=== PATIENT | male | born 1945 | race Caucasian/White ===

== ENCOUNTER 2017-06-13 12:05 | Outpatient (CLI) | payer MEDICARE, BC ==
--- NOTE | 2017-06-13 12:52 | RAD ---
THREE VIEWS LUMBAR SPINE: Indication: Chronic back pain. Comparison: 11-30-16 FINDINGS: The disc degenerative and facet osteoarthritic changes in the lower lumbar spine at L4-5 and L5-6 is stable to the prior exam. No acute fracture or subluxation is evident. IMPRESSION: Stable spondylosis of the lumbar spine when compared to the prior dated 11-30-16. POS: [facility]
== END 2017-06-13 12:06 | disposition home or self-care (01) ==
LOC: SCSRAD 12:05
PROVIDERS: ATTEND Psychiatry & Neurology Neurology
DX: G20 Parkinson's disease (principal); M47.816 Spondylosis without myelopathy or radiculopathy, lumbar region
CPT/HCPCS: 72100

== ENCOUNTER 2017-09-12 14:05 | Emergency (ER) | payer MEDICARE, BC ==
[2017-09-12 14:49] LABS: #Basophils 0.1 thou/uL (0.0-0.2); #Eosinphils 0.1 thou/uL (0.0-0.7); #Lymphocytes 1.2 thou/uL (1.20-3.40); #Monocytes 0.6 thou/uL (0.11-0.59); %Basophils 0.7 % (0.0-1.0); %Eosinophils 1.6 % (0.0-10.0); %Lymphocytes 13.7 % (21.0-51.0); %Monocytes 6.1 % (0.0-10.0); %Neutrophils 77.9 % (42.0-75.0); Hemoglobin 15.4 g/dL (14.0-18.0); Mean Corpuscular HGB CONC 35.7 g/dL (32.0-36.0); Mean Corpuscular Hemoglobin 31.9 pg (27.0-31.0); Mean Corpuscular Volume 89.4 fl (80.0-94.0); Mean Platelet Volume 7.9 fL (7.4-10.4); Platelet Count 225 thou/uL (130-400); RBC Distribution Width 11.6 % (11.5-14.5); Red Blood Cell (RBC) Count 4.85 mill/uL (4.70-6.10); White Blood Cell (WBC) Count 8.9 thou/uL (4.8-10.8)
[2017-09-12 15:04] LABS: ALT (SGPT) 16 U/L (8-55); AST (SGOT) 17 U/L (5-34); Albumin 4.2 g/dL (3.4-4.8); Alkaline Phosphatase 98 U/L (40-150); Anion Gap 15 mmol/L (10-20); BUN (Urea Nitrogen) 27 mg/dL (8.4-25.7); Bilirubin, Total 0.9 mg/dL (0.2-1.2); CK (CPK) 72 U/L (30-200); Calc. Creatinine Clearance 0 mL/min (70-130); Calcium 9.9 mg/dL (7.8-10.44); Carbon Dioxide 22 mmol/L (23-31); Chloride 106 mmol/L (98-107); Estimated GFR-MDRD 34; Globulin 3.3 g/dL (2.4-3.5); Glucose 112 mg/dL (83-110); Lipase 12 U/L (8-78); Potassium 3.9 mmol/L (3.5-5.1); Protein, Total 7.5 g/dL (5.8-8.1); Sodium 139 mmol/L (136-145)
[2017-09-12 15:07] LABS: CKMB 2.3 ng/mL (0-6.6)
--- NOTE | 2017-09-12 15:23 | RAD ---
PORTABLE CHEST ONE VIEW: Date: 09-12-17 Time: 3:13 p.m. History: Weakness, coronary artery disease. There are seven coronary stents. FINDINGS: Comparison is made with study 11-11-14. The heart is enlarged. Changes of median sternotomy are again seen. Lungs are well expanded without f ocal areas of consolidation, pneumothorax, rhiannon pulmonary edema or pleural effusions. A right taqueria l head prosthesis is again seen. The calcific density in the right lung apex is redemonstrated. IMPRESSION: No acute process. POS: [facility]
[2017-09-12 15:32] LABS: Troponin I 0.524 ng/mL (< 0.028)
[2017-09-12] MEDS ORDERED: Enoxaparin Sodium 100 MG/ML SYRINGE ONE (15:42)
[2017-09-12 16:11] LABS: Bilirubin Small (Negative); Blood, Urine Negative (Negative); Clarity Slightly Cloudy (Clear); Glucose, Urine (Dipstick) Negative (Negative); Leukocyte Negative (Negative); Nitrite Negative (Negative); Protein, Urine (Dipstick) 30 mg/dL (Neg-Trace); Specific Gravity, Urine 1.024 (1.002-1.036); Urobilinogen 0.2 mg/dL (0.2-1.0); pH, Urine 5.5 (5.0-9.0)
[2017-09-12 16:19] LABS: Bacteria/HPF 1+ HPF (None Seen); RBC/HPF 0-3 HPF (0-3); Renal Epithelial 0-3 HPF (0-3); Squamous Epithelial 0-3 HPF (0-3)
[2017-09-12 16:20] LABS: Hyaline Casts/LPF 4-6 HYALINE CAST LPF (0-3 Hyaline); Other Casts/LPF 0-3 FINELY GRAN LPF (0-3 Hyaline)
[2017-09-12] MEDS ORDERED: Metoprolol Tartrate 5 MG/5 ML VIAL ONE (17:36)
== END 2017-09-12 18:14 | disposition short-term general hospital (02) ==
LOC: SCSER 14:05
DX: I21.4 Non-ST elevation (NSTEMI) myocardial infarction (principal); E11.9 Type 2 diabetes mellitus without complications; I10 Essential (primary) hypertension; E78.00 Pure hypercholesterolemia, unspecified; G47.30 Sleep apnea, unspecified; F32.9 Major depressive disorder, single episode, unspecified; Z79.899 Other long term (current) drug therapy
CPT/HCPCS: 36415; 71045; 80053; 81003; 81015; 82553; 83605; 83690; 84443; 84484; 85025; 87040; 87086; 93005; 96361; 96372; 96374; J1650

== ENCOUNTER 2017-12-07 08:26 | Outpatient (CLI) | payer MEDICARE, BC ==
--- NOTE | 2017-12-07 10:00 | MRI ---
MRI LUMBAR SPINE NONCONTRAST: HISTORY: Low back pain with radiculopathy. FINDINGS: Conus medullaris has a normal appearance. Vertebral body heights are maintained. Scattered hemangio mas and discogenic end plate changes are present throughout the bone marrow. Partial compression of the T11 vertebral body is partially visualized on the sagittal images with res idual edema . There is loss of height by approximately 30%. T12-L1, L1-2, L2-3: Mild osteophytosis. Central canal and neural foramen are patent. L3-4: Very mild posterior disk bulge. Osteophytosis of the facets with facet fluid. Thecal sac is patent. Mild to moderate bilateral foraminal stenoses. L4-5: Disk space narrowing. Discogenic end plate changes most pronounced at this level. Minimal bu lge. Osteophytosis. Thecal sac is patent. Mild right and moderate left foraminal stenoses. L5-S1: Osteophytosis of the facets. Moderate right and mild left foraminal stenoses. IMPRESSION: 1. Degenerative changes lumbar spine with mild to moderate foraminal stenoses as detailed above. 2. Partially visualized subacute mild to moderate compression T11 vertebral body involving the super ior end plate without significant retropulsion. POS: [facility]
== END 2017-12-07 08:27 | disposition home or self-care (01) ==
LOC: TBSIIMAG 08:26
PROVIDERS: ATTEND Neurological Surgery
DX: M51.26 Other intervertebral disc displacement, lumbar region (principal); M51.36 Other intervertebral disc degeneration, lumbar region; M47.896 Other spondylosis, lumbar region; M99.83 Other biomechanical lesions of lumbar region
CPT/HCPCS: 72148

== ENCOUNTER 2018-03-22 14:40 | Emergency (ER) | payer MEDICARE, BC ==
--- NOTE | 2018-03-22 16:22 | RAD ---
LEFT HUMERUS TWO VIEWS: HISTORY: A 72-year-old male with a history of left arm pain after falling yesterday. FINDINGS: There are numerous left rib deformities, some of which are old and several of which could be acute or subacute. There is evidence for a comminuted humeral head and neck fracture with foreshortening. N o overt dislocation. The mid and distal humerus appears intact. The elbow is poorly seen. IMPRESSION: Comminuted humeral head and neck fracture with foreshortening, without dislocation. Numerous healed left rib fractures, as well as at least one and possibly several acute or subacute left rib fractures . POS: [facility]
--- NOTE | 2018-03-22 16:24 | RAD ---
LEFT SHOULDER THREE VIEWS: HISTORY: A 72-year-old male with a history of left shoulder injury. FINDINGS: Displaced comminuted fractures of the humeral head and neck are noted with some foreshortening and ma lalignment. Marked AC joint separation with abnormal widening of the coracoclavicular space. IMPRESSION: Severe acromioclavicular separation with marked abnormal widening of the coracoclavicular space. Com minuted fractures involving the humeral head and neck with foreshortening but without overt dislocati on. Numerous healed left rib fractures with the appearance of at least one and possibly several acut e or subacute left rib fractures without pneumothorax or pleural effusion. POS: [facility]
--- NOTE | 2018-03-22 16:47 | CT ---
NONCONTRAST HEAD CT: 03/22/18 HISTORY: Pain. Injury. Fall. COMPARISON: 11/11/14. FINDINGS: No parenchymal hemorrhage. No extra-axial hematoma. No midline shift. Basilar cisterns are patent. Ag e appropriate atrophy. Cortical gates-white matter differentiation is preserved. Ventricles and sulci are patent and symmetric. There is ectasia and extensive atherosclerosis in the visualized basilar artery. Mild mucosal thickening of the left maxillary sinus. Mastoid air cells are adequately aerated. Calvar ium is intact. IMPRESSION: No intracranial posttraumatic sequela. POS: [facility]
== END 2018-03-22 16:36 | disposition home or self-care (01) ==
LOC: SCSER 14:40
DX: S22.32XA Fracture of one rib, left side, initial encounter for closed fracture (principal); S42.292A Other displaced fracture of upper end of left humerus, initial encounter for closed fracture; S43.102A Unspecified dislocation of left acromioclavicular joint, initial encounter; R42 Dizziness and giddiness; G20 Parkinson's disease; E11.9 Type 2 diabetes mellitus without complications; I25.10 Atherosclerotic heart disease of native coronary artery without angina pectoris; I10 Essential (primary) hypertension; F32.9 Major depressive disorder, single episode, unspecified; Z79.899 Other long term (current) drug therapy; Z79.82 Long term (current) use of aspirin; W17.89XA Other fall from one level to another, initial encounter
CPT/HCPCS: 70450

== ENCOUNTER 2018-05-13 07:59 | Outpatient (CLI) | payer MEDICARE, BC ==
--- NOTE | 2018-05-13 09:14 | RAD ---
CERVICAL SPINE RADIOGRAPH SERIES 5 VIEWS: INDICATION: Neck pain. FINDINGS: Incidental note of a calcific density at the right apex which may relate to granulomatous calcificati on. Neutral lateral view of the cervical spine reveals reversed cervical curvature, likely degenerative w ith a slight degree of retrolisthesis of C3 on 4 and C4 on 5. There is no obvious translational dee on evident with flexion and extension positioning. No compression fracture. Moderate multilevel deg enerative change is present. IMPRESSION: Moderate multilevel degenerative changes of the cervical spine. No significant translational motion. POS: [facility]
--- NOTE | 2018-05-13 10:26 | MRI ---
MRI CERVICAL SPINE WITHOUT CONTRAST: History: Chronic neck pain. Comparison: None. Technique: Multiplanar, multisequence MRI images were obtained of the cervical spine without contrast . FINDINGS: Generalized disc desiccation is seen. Vertebral bodies demonstrate normal height and alignment withou t fracture or subluxation. Visualized cord demonstrates normal signal throughout. The craniocervical junction is unremarkable. T he prevertebral and paraspinal soft tissues are unremarkable. C2-3: A small central protrusion is seen. No posterior facet arthrosis. No neural foraminal stenosis or canal stenosis. C3-4: A small disc osteophyte complex is seen. No posterior facet arthrosis. Mild central canal steno sis. Moderate bilateral neural foraminal stenosis, left greater than right. C4-5: A small disc osteophyte complex is seen. No posterior facet arthrosis. Mild central canal steno sis. Moderate bilateral neural foraminal stenosis, left greater than right. C5-6: A small disc osteophyte complex is seen. No posterior facet arthrosis. Mild central canal steno sis. Mild to moderate bilateral neural foraminal stenosis. C6-7: No significant posterior bulge or protrusion. No posterior facet arthrosis. No neural foramina or central canal stenosis. C7-T1: Unremarkable. IMPRESSION: Degenerative changes of the cervical spine as above. POS: [facility]
== END 2018-05-13 08:00 | disposition home or self-care (01) ==
LOC: SCSMRI 07:59
PROVIDERS: ATTEND Nurse Practitioner Family
DX: M54.2 Cervicalgia (principal); M47.812 Spondylosis without myelopathy or radiculopathy, cervical region
CPT/HCPCS: 72050; 72141

== ENCOUNTER 2018-06-02 18:43 | Emergency (ER) | payer MEDICARE, BC ==
--- NOTE | 2018-06-02 19:29 | RAD ---
FOUR VIEWS LEFT KNEE: Comparison: None. History: Fall in scientology with left knee pain. FINDINGS: Four views of the left knee shows a fracture of the lateral aspect of the patella with overlying soft tissue swelling. No dislocation is seen. No knee effusion is seen. There are mild tricompartmental d egenerative changes in the left knee. Clips are seen along the medial aspect of the knee. IMPRESSION: 1. Acute fracture of the patella. 2. Mild left knee osteoarthritis. POS: [facility]
[2018-06-02] MEDS ORDERED: Acetaminophen 500 MG TAB ONE (19:41)
[2018-06-02] MEDS ORDERED: Ketorolac Tromethamine 30 MG/ML VIAL ONE (20:58)
[2018-06-02] MEDS ORDERED: Adacel (T-DAP) 0.5 ML VIAL ONE (20:58)
[2018-06-02] MEDS ORDERED: cloNIDine 0.1 MG TAB ONE (21:36)
[2018-06-02] MEDS ORDERED: Triple Antibiotic Oint 1 GM Packet ONE (21:36)
== END 2018-06-02 22:47 | disposition home or self-care (01) ==
LOC: ERS 18:43
DX: S82.002A Unspecified fracture of left patella, initial encounter for closed fracture (principal); E11.9 Type 2 diabetes mellitus without complications; E78.00 Pure hypercholesterolemia, unspecified; G47.30 Sleep apnea, unspecified; I25.10 Atherosclerotic heart disease of native coronary artery without angina pectoris; E78.5 Hyperlipidemia, unspecified; I10 Essential (primary) hypertension; F32.9 Major depressive disorder, single episode, unspecified; Z79.899 Other long term (current) drug therapy; W18.09XA Striking against other object with subsequent fall, initial encounter
CPT/HCPCS: 90471; 90715; 96372; J1885

== ENCOUNTER 2018-06-08 11:56 | Emergency (ER) | payer MEDICARE, BC ==
[2018-06-08] MEDS ORDERED: cloNIDine 0.1 MG TAB ONE (18:42)
== END 2018-06-08 18:20 | disposition home or self-care (01) ==
LOC: ERS 11:56
DX: I10 Essential (primary) hypertension (principal); R29.6 Repeated falls; E78.5 Hyperlipidemia, unspecified; G47.30 Sleep apnea, unspecified; I25.10 Atherosclerotic heart disease of native coronary artery without angina pectoris; F32.9 Major depressive disorder, single episode, unspecified; Z79.899 Other long term (current) drug therapy
CPT/HCPCS: 94760

== ENCOUNTER 2018-07-26 16:55 | Inpatient (IN) | payer MEDICARE, BC ==
[2018-07-26] MEDS ORDERED: Acetaminophen 325 MG Suppository ONE (17:45)
[2018-07-26] MEDS ORDERED: cefTRIAXone\\ROCEPHIN 2 GM VIAL ONE (17:45)
[2018-07-26] MEDS ORDERED: Acetaminophen 650 MG Suppository ONE (17:45)
[2018-07-26] MEDS ORDERED: Sodium Chloride 0.9% 100 ML ONE (17:46)
[2018-07-26 17:49] LABS: Bilirubin Negative (Negative); Blood, Urine Moderate (Negative); Glucose, Urine (Dipstick) Negative (Negative); Leukocyte Small (Negative); Nitrite Positive (Negative); Protein, Urine (Dipstick) 30 mg/dL (Neg-Trace); Specific Gravity, Urine 1.025 (1.005-1.030); Urobilinogen 0.2 mg/dL (0.2-1.0); pH, Urine 5.5 (5.0-9.0)
[2018-07-26 17:50] LABS: Clarity Cloudy (Clear); Hemoglobin 14.3 g/dL (14.0-18.0); Mean Corpuscular HGB CONC 34.2 g/dL (32.0-36.0); Mean Corpuscular Hemoglobin 31.8 pg (27.0-31.0); Mean Corpuscular Volume 93.1 fL (78.0-98.0); Mean Platelet Volume 8.1 fL (7.4-10.4); Platelet Count 131 thou/uL (130-400); RBC Distribution Width 12.4 % (11.5-14.5); White Blood Cell (WBC) Count 20.8 thou/uL (4.8-10.8)
[2018-07-26 17:57] LABS: ALT (SGPT) Less than 6 U/L (8-55); AST (SGOT) 11 U/L (5-34); Albumin 3.9 g/dL (3.4-4.8); Alkaline Phosphatase 88 U/L (40-150); Anion Gap 15 mmol/L (10-20); BUN (Urea Nitrogen) 21 mg/dL (8.4-25.7); Bilirubin, Total 1.6 mg/dL (0.2-1.2); Calc. Creatinine Clearance 0 mL/min (70-130); Calcium 9.3 mg/dL (7.8-10.44); Carbon Dioxide 23 mmol/L (23-31); Chloride 100 mmol/L (98-107); Estimated GFR-MDRD 41; Globulin 3.2 g/dL (2.4-3.5); Glucose 231 mg/dL (83-110); Protein, Total 7.1 g/dL (5.8-8.1); Sodium 134 mmol/L (136-145)
[2018-07-26 18:02] LABS: Band 2 % (5-11); Lymphocytes 2 % (21-51); MDiff Complete? YES; Monocytes 6 % (0-10); Neutrophil 89 % (42-75); Platelet Morphology Comment Appears Adequate; RBC Morphology Normal
[2018-07-26 18:03] LABS: Bacteria/HPF 4+ HPF (None Seen); Squamous Epithelial None Seen HPF (0-3)
[2018-07-26] MEDS ORDERED: Vancomycin HCl 500 MG VIAL ONE (18:24)
--- NOTE | 2018-07-26 19:02 | RAD ---
CHEST ONE VIEW: History: Dyspnea. Comparison: 02-19-18 FINDINGS: Cardiac silhouette is magnified and is upper limits of normal in size. Pulmonary vasculature also upp er limits of normal. Patient is rotated leftward. Post-operative changes of the mediastinum. Calcifie d granulomata are consistent with healed granulomatous disease. No lobar consolidation or evidence of pneumothorax. IMPRESSION: Chronic type findings appear stable. POS: [facility]
--- NOTE | 2018-07-26 19:34 | CT ---
CT HEAD NONCONTRAST: 07/26/18 HISTORY: Altered mental status. COMPARISON: 03/22/18. FINDINGS: There is no evidence of acute intracranial hemorrhage or infarct. Ventricles appear normal in size, s hape and position. Diffuse cortical atrophy and chronic ischemic small disease are apparent. A subtle oval area of decreased density at the left posterior frontal region on axial image #23 is favored to represent volume averaging of a sulcus. Mucosal thickening is noted within the left maxillary sinus. Prominent calcification in the arterial structures. IMPRESSION: Chronic type findings are stable. No acute intracranial abnormalities are demonstrated. POS: [facility]
[2018-07-26 21:18] LABS: Lactic Acid 1.4 mmol/L (0.5-2.2)
--- NOTE | 2018-07-26 21:20 | CT ---
CT ABDOMEN AND PELVIS NONCONTRAST: 07/26/18 HISTORY: Flank pain. FINDINGS: Each renal collecting system, ureter, and urinary bladder are decompressed without stone evident. Lack of contrast limits evaluation for other abnormalities. Calcification throughout the arterial str uctures. Lung bases are clear. Oral contrast was administered. No evidence of bowel obstruction. Dege nerative changes of the lumbar spine. Old left lower rib fractures. IMPRESSION: 1. No CT evidence of urinary tract obstruction or calcification. 2. Atherosclerosis. POS: [facility]
[2018-07-26] MEDS ORDERED: Acetaminophen 325 MG TAB PO PRN (22:04)
[2018-07-26 22:34] VITALS: BMI 32.1
[2018-07-26] MEDS ORDERED: Albuterol Sulfate 2.5 mg/3 ml Neb NEB PRN (22:55)
[2018-07-26] MEDS ORDERED: Dextrose 5% in Water 1,000 ML IV PRN (22:56)
[2018-07-26] MEDS ORDERED: Dextrose 50% Abboject 50 ML SYRINGE SLOW IVP PRN (22:56)
[2018-07-26] MEDS ORDERED: HumaLOG 300 UNITS/3 ML VIAL SC PRN ×2 (22:56)
[2018-07-26] MEDS ORDERED: Ondansetron PF 4 MG/2 ML Vial IVP PRN (22:59)
[2018-07-26] MEDS ORDERED: Bisacodyl 5 MG TAB PO PRN (22:59)
[2018-07-26] MEDS ORDERED: Senokot S 8.6-50 MG TAB PO PRN (22:59)
[2018-07-26] MEDS ORDERED: Calcium Carbonate 500 MG ChewTAB PO PRN (22:59)
[2018-07-26] MEDS ORDERED: Amantadine HCl 100 mg Capsule PO SCH (23:15)
[2018-07-26] MEDS ORDERED: Pravastatin Sodium 40 MG TAB PO SCH (23:15)
[2018-07-26] MEDS ORDERED: Donepezil HCl 10 MG TAB PO SCH (23:15)
[2018-07-26] MEDS ORDERED: Carbidopa/Levodopa 25-100 mg Tablet PO SCH (23:15)
[2018-07-26] MEDS: Sodium Chloride 0.9% 1,000 ML IV SCH (23:41)
[2018-07-26] MEDS: hydrALAZINE 20 MG/ML VIAL SLOW IVP PRN (23:41)
--- NOTE | 2018-07-27 00:41 | HP ---
CHIEF COMPLAINT: Altered mental status. PRIMARY CARE PHYSICIAN: Lincoln Art MD HISTORY OF PRESENTING ILLNESS: Mr. Bright is a pleasant 72-year-old male with past medical history of hypertension, Parkinson disease, dyslipidemia, and sleep apnea as well as coronary artery disease, status post CABG, who presented to the ER in [place] with complaints of mental status changes. History is mainly obtained by the record review as the patient does not want to really wake up as it is around 1130 at night, and the is sound asleep in the room. Electronic medical records have been reviewed in detail. Mr. Bright was brought into the [place] ER by his who noticed that he has been having some confusion. She gave history of him having some sweats and feeling hot, like he had a fever, also noticed urinary frequency with small void every 15 minutes all night. He had a back injection for chronic pain about 3 weeks ago. He was acting very disoriented today. Upon presentation to the ER, his blood pressure was 158/85, temperature of 102.[address] and chest x-ray were unremarkable. He, however, was found to have a WBC count of 20,000 with 89% neutrophils. Lactic acid of 2.4. His urinalysis was positive for nitrite, leukocyte esterase, wbc's, and +4 bacteria. He underwent a CT scan of the abdomen and pelvis, which was negative for any acute hydronephrosis or stone. He was given vancomycin and Rocephin in the emergency room and is now being admitted for sepsis secondary to urinary tract infection. He is currently hemodynamically stable and his repeat lactic acid is 1.4. PAST MEDICAL HISTORY: 1. Parkinson disease. 2. History of coronary artery disease, status post CABG. 3. Diabetes mellitus type 2 with peripheral neuropathy. 4. Obstructive sleep apnea. 5. Depression. 6. BPH. 7. Dyslipidemia. 8. Hypertension. 9. Asthma. PAST SURGICAL HISTORY: 1. Cholecystectomy. 2. CABG. 3. Ankle surgery. 4. Shoulder surgery. 5. Oropharyngeal surgery for sleep apnea. ALLERGIES: ANTIHISTAMINES. SOCIAL HISTORY: He lives at home with his . According to the EMR, he is independent with his ADLs and IADLs. No history of drug, tobacco, or alcohol abuse. FAMILY HISTORY: Significant for mother with hypertension. Father and aunt with lung cancer. HOME MEDICATIONS: As confirmed by our RN as follows; 1. Tylenol p.r.n. 2. Albuterol p.r.n. 3. Imdur mononitrate 30 mg daily. 4. Donepezil 10 mg daily. 5. Carbidopa/levodopa 25/100 one tablet p.o. q.i.d. 6. Amantadine 100 mg p.o. b.i.d. 7. Toprol-XL 12.5 mg p.o. b.i.d. 8. Fluoxetine 1 tablet daily. 9. Plavix 1 tablet daily. 10. Amlodipine 5 mg daily. 11. Flomax 1 capsule daily. 12. Pravastatin 40 mg daily. REVIEW OF SYSTEMS: Not really obtainable as the patient is not wanting to discuss with me at this time and wants to be left alone to sleep. is sleeping and not available to discuss either. LABORATORY DATA: CBC shows WBCs 20,000 with neutrophils 89%, otherwise unremarkable. Serum chemistry shows sodium 134, creatinine 1.64, which is at his baseline with estimated GFR of 41, glucose 231. Lactic acid 2.4 with repeat lactic acid of 1.4. Urinalysis, +4 bacteria, multiple leukocyte esterase and nitrite. CT scan of the abdomen and pelvis per my review shows no hydronephrosis or calcification. Chest x-ray by my review has no evidence to suggest pulmonary infiltrate, effusion, or edema. CT scan of the brain is negative for any edema, hemorrhage, or mass. PHYSICAL EXAMINATION: VITAL SIGNS: Most recent temperature 97.6, pulse of 80, respirations 18, saturating 100% on room air, blood pressure 158/72 with a repeat blood pressure of 184/110. GENERAL: No acute distress. Lying comfortably in bed and trying to sleep, wakes up when woken up and follows simple commands. No acute distress. HEENT: Mucous membranes slightly dry. No oropharyngeal exudate or erythema. Head is normocephalic, atraumatic. Pupils are equal and reactive to light and accommodation. NECK: Supple without any lymphadenopathy, JVD, or bruit. CHEST: Clear to auscultation without any wheezing, rales, or rhonchi. CARDIOVASCULAR: Rate and rhythm are regular without any murmurs, rubs, or gallops. ABDOMEN: Soft, nontender, and nondistended. Positive bowel sounds. EXTREMITIES: Free of any cyanosis, clubbing, or edema. NEUROLOGICAL: Largely nonfocal, but limited due to patient's noncooperation. He is oriented to self and place. SKIN: Free of any rashes or bruises. Feels warm and dry to touch. PSYCHIATRIC: Slight agitation noticed. IMPRESSION AND PLAN: 1. Sepsis. This is secondary to urinary tract infection. He is hemodynamically stable. He will be started with IV antibiotics and IV fluids. Urine culture and blood cultures have been sent. We will repeat the labs in the morning. Lactic acid has since normalized. His last urine specimen is from January 2018, which showed Proteus mirabilis which was resistant to nitrofurantoin, otherwise pansensitive. Based on these cultures, we will start him on Rocephin. He has also received a dose of vancomycin in the ER. No other source of infection is evident at this time. 2. Parkinson disease. We will restart his amantadine and his Sinemet. 3. Coronary artery disease. Restart his metoprolol, isosorbide as well as Plavix. 4. Hypertension. Restart his amlodipine and isosorbide and add p.r.n. antihypertensives. 5. Dyslipidemia. Restart his pravastatin. 6. Code status could not be addressed due to patient's noncooperation at this time. We will need to address it in the morning. 7. Deep venous thrombosis and gastrointestinal prophylaxis. 8. Add walking program and if necessary OT and PT. 9. Chronic kidney disease stage 3, stable. DISPOSITION: Mr. Bright is currently being admitted to medical floor for sepsis secondary to urinary tract infection. Estimated length of stay at this time is at least 2 to 3 midnights. Further management will depend upon his clinical course. Job ID: [id number]
[2018-07-27] MEDS: hydrALAZINE 20 MG/ML VIAL SLOW IVP PRN (03:31)
[2018-07-27] MEDS: cloNIDine 0.1 MG TAB PO PRN (04:54)
[2018-07-27] MEDS ORDERED: Acetaminophen 650 MG Suppository PR PRN (05:18)
[2018-07-27] MEDS ORDERED: Nitroglycerin 0.4 MG TAB (25 Tab Bottle) SL PRN (05:18)
[2018-07-27] MEDS ORDERED: Aspirin 325 mg Enteric Coated Tablet PO SCH (05:30)
[2018-07-27 05:50] LABS: #Lymphocytes 0.7 thou/uL (1.20-3.40); #Neutrophils 16.3 thou/uL (1.40-6.50); %Basophils 0.1 % (0.0-1.0); %Eosinophils 0.3 % (0.0-10.0); %Lymphocytes 4.1 % (21.0-51.0); %Monocytes 5.4 % (0.0-10.0); %Neutrophils 90.1 % (42.0-75.0); Hemoglobin 12.6 g/dL (14.0-18.0); Mean Corpuscular HGB CONC 33.5 g/dL (32.0-36.0); Mean Corpuscular Hemoglobin 31.9 pg (27.0-31.0); Mean Corpuscular Volume 95.3 fL (78.0-98.0); Mean Platelet Volume 8.1 fL (7.4-10.4); Platelet Count 110 thou/uL (130-400); RBC Distribution Width 12.5 % (11.5-14.5); Red Blood Cell (RBC) Count 3.95 mill/uL (4.70-6.10)
[2018-07-27 06:07] LABS: Anion Gap 14 mmol/L (10-20); BUN (Urea Nitrogen) 17 mg/dL (8.4-25.7); Calc. Creatinine Clearance 79 mL/min (70-130); Calcium 8.6 mg/dL (7.8-10.44); Carbon Dioxide 20 mmol/L (23-31); Chloride 103 mmol/L (98-107); Estimated GFR-MDRD 56; Glucose 193 mg/dL (83-110); Potassium 3.7 mmol/L (3.5-5.1); Sodium 133 mmol/L (136-145)
[2018-07-27] MEDS ORDERED: Artificial Tears 18 DROP/0.9 ML EA EYE PRN (07:26)
[2018-07-27] MEDS ORDERED: Acetaminophen 500 MG TAB PO PRN (07:26)
[2018-07-27] MEDS ORDERED: Loperamide HCl 2 MG CAP PO PRN (07:26)
[2018-07-27] MEDS ORDERED: Zolpidem Tartrate 5 MG TAB PO PRN (07:26)
[2018-07-27] MEDS ORDERED: Eucerin (Mineral Oil/Petrolatum,White) 30 gm Jar TOP PRN (07:26)
[2018-07-27] MEDS ORDERED: Loratadine 10 MG TAB PO PRN (07:26)
[2018-07-27] MEDS ORDERED: Cepastat Lozenges 1 LOZ PO PRN (07:26)
[2018-07-27] MEDS ORDERED: Ondansetron ODT 4 MG TAB PO PRN (07:26)
[2018-07-27] MEDS ORDERED: Bisacodyl 10 MG SUPP PR PRN (07:26)
[2018-07-27] MEDS ORDERED: Diabetic Tussin 200 MG/10 ML UDCUP PO PRN (07:26)
[2018-07-27] MEDS ORDERED: Sodium Chloride 0.65% Nasal 44 ML BOT EA NARE PRN (07:26)
[2018-07-27] MEDS ORDERED: Labetalol HCl 100 MG/20 ML VIAL SLOW IVP PRN (07:28)
[2018-07-27] MEDS: Tamsulosin HCl 0.4 MG CAP PO SCH (09:40)
[2018-07-27] MEDS: Clopidogrel Bisulfate 75 MG TAB PO SCH (09:40)
[2018-07-27] MEDS: Amlodipine 5 MG TAB PO SCH (09:40)
[2018-07-27] MEDS: Saccharomyces boulardii 250 MG CAP PO SCH (09:40)
[2018-07-27] MEDS: FLUoxetine HCl 10 MG CAP PO SCH (09:40)
[2018-07-27] MEDS: Carbidopa/Levodopa 25-100 mg Tablet PO SCH ×4 (09:41→20:30)
[2018-07-27] MEDS: Amantadine HCl 100 mg Capsule PO SCH ×2 (09:41→20:30)
[2018-07-27] MEDS: Famotidine 20 MG TAB PO SCH ×2 (09:41→20:29)
[2018-07-27] MEDS: Enoxaparin Sodium 40 MG/0.4 ML SYRINGE SC SCH (09:44)
--- NOTE | 2018-07-27 10:55 | PDOC.PN ---
- Subjective Encounter Start Date: 07/27/18 Encounter Start Time: 08:40 -: old records requested/rev Patient seen and examined. No new complaints. No overnight events - Objective Resuscitation Status - Order Detail: 07/27/18 07:30 Resuscitation Status Routine Resuscitation Status: FULL: Full Resuscitation MAR Reviewed: Yes Vital Signs & Weight: Vital Signs (12 hours) Temp Pulse Resp BP BP BP Pulse Ox 07/27/18 10:07 95 07/27/18 09:40 75 119/77 07/27/18 08:38 98.6 F 75 20 119/77 95 07/27/18 06:28 98.1 F 88 132/76 07/27/18 04:54 183/77 H 07/27/18 04:06 98.6 F 103 H 20 192/76 H 94 L 07/27/18 03:31 100 195/87 H 07/27/18 00:59 100 160/81 H 07/26/18 23:57 98.5 F 90 20 184/110 H 97 07/26/18 23:41 90 184/110 H 07/26/18 22:57 100 Weight Weight 237 lb 4.8 oz I&O: 07/26/18 07/27/18 07/28/18 06:59 06:59 06:59 Intake Total 580 Output Total 150 Balance 430 Result Diagrams: 07/27/18 05:39 07/27/18 05:39 Additional Labs: Accuchecks 07/27/18 03:23 POC Glucose 164 H Radiology Reviewed by me: Yes (CT abdomen, chest xray reviewed) EKG Reviewed by me: Yes (NSR) Phys Exam - Physical Examination Constitutional: NAD HEENT: PERRLA, moist MMs, sclera anicteric Neck: no JVD, supple Respiratory: no wheezing, no rales, no rhonchi Cardiovascular: RRR, no significant murmur, no rub Gastrointestinal: soft, non-tender, no distention, positive bowel sounds Musculoskeletal: no edema, pulses present Neurological: non-focal, normal sensation parkinsonian tremor Lymphatic: no nodes Psychiatric: normal affect Skin: no rash, normal turgor Dx/Plan (1) Acute worsening of stage 3 chronic kidney disease Code(s): N18.3 - CHRONIC KIDNEY DISEASE, STAGE 3 (MODERATE) Status: Acute (2) Lactic acidosis Code(s): E87.2 - ACIDOSIS Status: Acute (3) Sepsis with acute organ dysfunction Code(s): A41.9 - SEPSIS, UNSPECIFIED ORGANISM; R65.20 - SEVERE SEPSIS WITHOUT SEPTIC SHOCK Status: Acute (4) Thrombocytopenia Code(s): D69.6 - THROMBOCYTOPENIA, UNSPECIFIED Status: Acute (5) UTI (urinary tract infection) Status: Acute (6) Anxiety and depression Code(s): F41.9 - ANXIETY DISORDER, UNSPECIFIED; F32.9 - MAJOR DEPRESSIVE DISORDER, SINGLE EPISODE, UNSPECIFIED Status: Chronic (7) Asthma Code(s): J45.909 - UNSPECIFIED ASTHMA, UNCOMPLICATED Status: Chronic (8) BPH (benign prostatic hyperplasia) Code(s): N40.0 - BENIGN PROSTATIC HYPERPLASIA WITHOUT LOWER URINRY TRACT SYMP Status: Chronic (9) CAD (coronary artery disease) Code(s): I25.10 - ATHSCL HEART DISEASE OF [place] CORONARY ARTERY W/O ANG PCTRS Status: Chronic (10) Diabetes type 2, controlled Code(s): E11.9 - TYPE 2 DIABETES MELLITUS WITHOUT COMPLICATIONS Status: Chronic (11) Dyslipidemia Code(s): E78.5 - HYPERLIPIDEMIA, UNSPECIFIED Status: Chronic (12) Hypertension Code(s): I10 - ESSENTIAL (PRIMARY) HYPERTENSION Status: Chronic (13) CHICO (obstructive sleep apnea) Code(s): G47.33 - OBSTRUCTIVE SLEEP APNEA (ADULT) (PEDIATRIC) Status: Chronic (14) Parkinson disease Code(s): G20 - PARKINSON'S DISEASE Status: Chronic - Plan cont current plan of care, plan discussed w/ family, continue antibiotics, PT/OT * continue IVF * continue rocephin * start PT * follow culture * discussed with * medication reviewed as below * symptomatic treatment * repeat labs tomorrow. Review of Systems - Review of Systems Constitutional: negative: fever, chills, sweats, weakness, malaise, other Eyes: negative: Pain, Vision Change, Conjunctivae Inflammation, Eyelid Inflammation, Redness, Other ENT: negative: Ear Pain, Ear Discharge, Nose Pain, Nose Discharge, Nose Congestion, Mouth Pain, Mouth Swelling, Throat Pain, Throat Swelling, Other Respiratory: negative: Cough, Dry, Shortness of Breath, Hemoptysis, SOB with Excertion, Pleuritic Pain, Sputum, Wheezing Cardiovascular: negative: chest pain, palpitations, orthopnea, paroxysmal nocturnal dyspnea, edema, light headedness, other Gastrointestinal: negative: Nausea, Vomiting, Abdominal Pain, Diarrhea, Constipation, Melena, Hematochezia, Other Genitourinary: Dysuria, Frequency. negative: Incontinence, Hematuria, Retention , Other Musculoskeletal: negative: Neck Pain, Shoulder Pain, Arm Pain, Back Pain, Hand Pain, Leg Pain, Foot Pain, Other - Medications/Allergies Allergies/Adverse Reactions: Allergies Allergy/AdvReac Type Severity Reaction Status Date / Time codeine Allergy Verified 07/26/18 22:13 antihistamines Allergy Severe Uncoded 10/19/15 12:47 Medications: Current Medications Acetaminophen (Tylenol) 650 mg PO Q6H PRN PRN Reason: Mild Pain (1-3) Albuterol Sulfate (Ventolin) 7.5 mg NEB Q6HR PRN PRN Reason: SOB &/or Wheezing Amantadine HCl (Symmetrel) 100 mg PO BID [facility] Last Admin: 07/27/18 09:41 Dose: 100 mg Amlodipine Besylate (Norvasc) 5 mg PO DAILY [facility] Last Admin: 07/27/18 09:40 Dose: 5 mg Artificial Tears (Tears Naturale) 2 drop EA EYE PRN PRN PRN Reason: Dry Eyes Aspirin (Aspirin) 325 mg PO DAILY [facility] Bisacodyl (Dulcolax) 10 mg PO DAILYPRN PRN PRN Reason: Constipation Bisacodyl (Dulcolax) 10 mg WI DAILYPRN PRN PRN Reason: Constipation Calcium Carbonate (Tums) 1,000 mg PO Q4H PRN PRN Reason: Heartburn or Indigestion Carbidopa/Levodopa (Sinemet 25-100) 1 tab PO QID [facility] Last Admin: 07/27/18 09:41 Dose: 1 tab Clonidine (Catapres) 0.1 mg PO Q4H PRN PRN Reason: SBP>160 Last Admin: 07/27/18 04:54 Dose: 0.1 mg Clopidogrel Bisulfate (Plavix) 75 mg PO DAILY [facility] Last Admin: 07/27/18 09:40 Dose: 75 mg Dextrose/Water (Dextrose 50%) 25 gm SLOW IVP PRN PRN PRN Reason: Hypoglycemia Donepezil HCl (Aricept) 10 mg PO HS [facility] Enoxaparin Sodium (Lovenox) 40 mg SC 0900 [facility] Last Admin: 07/27/18 09:44 Dose: Not Given Famotidine (Pepcid) 20 mg PO BID [facility] Last Admin: 07/27/18 09:41 Dose: 20 mg Fluoxetine HCl (Prozac) 10 mg PO DAILY [facility] Last Admin: 07/27/18 09:40 Dose: 10 mg Glucagon (Glucagon) 1 mg IM PRN PRN PRN Reason: Hypoglycemia Guaifenesin (Robitussin Sf) 200 mg PO Q4H PRN PRN Reason: Cough Hydralazine HCl (Apresoline) 10 mg SLOW IVP Q4H PRN PRN Reason: SBP>170 Last Admin: 07/27/18 03:31 Dose: 10 mg Dextrose/Water (D5w) 1,000 mls @ 0 mls/hr IV .Q0M PRN PRN Reason: Hypoglycemia Ceftriaxone Sodium 1 gm/ (Sodium Chloride) 100 mls @ 200 mls/hr IVPB 1800 [facility] Sodium Chloride (Normal Saline 0.9%) 1,000 mls @ 75 mls/hr IV .[id number] [facility] Last Admin: 07/26/18 23:41 Dose: 1,000 mls Insulin Human Lispro (Humalog) 0 units SC .MODERATE SLIDING SC PRN PRN Reason: Moderate Correctional Scale Insulin Human Lispro (Humalog) 0 units SC .BEDTIME SLIDING SC PRN PRN Reason: Bedtime Correctional Scale Isosorbide Mononitrate (Imdur Er) 30 mg PO DAILY [facility] Last Admin: 07/27/18 09:40 Dose: 30 mg Labetalol HCl (Normodyne) 10 mg SLOW IVP Q4H PRN PRN Reason: SBP Greater Than 170 Loperamide HCl (Imodium) 2 mg PO PRN PRN PRN Reason: Diarrhea/Loose Stools Loratadine (Claritin) 10 mg PO DAILYPRN PRN PRN Reason: Sinus Symptoms Metoprolol Succinate (Toprol Xl) 12.5 mg PO BID [facility] Last Admin: 07/27/18 09:40 Dose: 12.5 mg Mineral Oil/White Petrolatum (Eucerin Cream) 0 gm TOP BIDPRN PRN PRN Reason: Dry Skin Nitroglycerin (Nitrostat) 0.4 mg SL Q5MIN PRN PRN Reason: Chest Pain Ondansetron HCl (Zofran) 4 mg IVP Q6H PRN PRN Reason: Nausea/Vomiting Last Admin: 07/27/18 05:20 Dose: 4 mg Ondansetron HCl (Zofran Odt) 4 mg PO Q6H PRN PRN Reason: Nausea/Vomiting Pravastatin Sodium (Pravachol) 40 mg PO [facility] Saccharomyces Boulardii (Florastor) 250 mg PO DAILY [facility] Last Admin: 07/27/18 09:40 Dose: 250 mg Senna/Docusate Sodium (Senokot S) 2 tab PO BID PRN PRN Reason: Constipation Sodium Chloride ([place] Nasal [place] 0.65%) 0 ml EA NARE QIDPRN PRN PRN Reason: Nasal Congestion Tamsulosin HCl (Flomax) 0.4 mg PO DAILY [facility] Last Admin: 07/27/18 09:40 Dose: 0.4 mg Throat Lozenges (Cepastat Lozenges) 1 hugo PO Q2H PRN PRN Reason: Sore Throat Zolpidem Tartrate (Ambien) 5 mg PO HSPRN PRN PRN Reason: Insomnia
[2018-07-27] MEDS: Sodium Chloride 0.9% 1,000 ML IV SCH (12:35)
[2018-07-27] MEDS: cefTRIAXone\\ROCEPHIN 1 GM in Sodium Chloride 0.9% 100 ML IVPB SCH (17:31)
[2018-07-27] MEDS: Donepezil HCl 10 MG TAB PO SCH (20:28)
[2018-07-27] MEDS: Pravastatin Sodium 40 MG TAB PO SCH (20:29)
[2018-07-28] MEDS: Sodium Chloride 0.9% 1,000 ML IV SCH (02:35)
[2018-07-28] MEDS: Amlodipine 5 MG TAB PO SCH (09:25)
[2018-07-28] MEDS: Aspirin 325 MG TAB PO SCH (09:26)
[2018-07-28] MEDS: Tamsulosin HCl 0.4 MG CAP PO SCH (09:26)
[2018-07-28] MEDS: Clopidogrel Bisulfate 75 MG TAB PO SCH (09:26)
[2018-07-28] MEDS: FLUoxetine HCl 10 MG CAP PO SCH (09:26)
[2018-07-28] MEDS: Saccharomyces boulardii 250 MG CAP PO SCH (09:26)
[2018-07-28] MEDS: Famotidine 20 MG TAB PO SCH ×2 (09:26→20:51)
[2018-07-28] MEDS: Enoxaparin Sodium 40 MG/0.4 ML SYRINGE SC SCH (09:27)
[2018-07-28] MEDS: Amantadine HCl 100 mg Capsule PO SCH ×2 (09:27→20:51)
[2018-07-28] MEDS: Carbidopa/Levodopa 25-100 mg Tablet PO SCH ×4 (09:27→20:51)
[2018-07-28 10:34] LABS: Anion Gap 10 mmol/L (10-20); BUN (Urea Nitrogen) 15 mg/dL (8.4-25.7); Calc. Creatinine Clearance 78 mL/min (70-130); Carbon Dioxide 22 mmol/L (23-31); Chloride 105 mmol/L (98-107); Estimated GFR-MDRD 55; Glucose 150 mg/dL (83-110); Potassium 4.1 mmol/L (3.5-5.1); Sodium 133 mmol/L (136-145)
[2018-07-28 10:49] LABS: #Eosinphils 0.1 thou/uL (0.0-0.7); #Lymphocytes 0.4 thou/uL (1.20-3.40); #Monocytes 0.3 thou/uL (0.11-0.59); #Neutrophils 6.9 thou/uL (1.40-6.50); %Basophils 0.2 % (0.0-1.0); %Eosinophils 1.1 % (0.0-10.0); %Lymphocytes 4.7 % (21.0-51.0); %Monocytes 3.5 % (0.0-10.0); %Neutrophils 90.5 % (42.0-75.0); Hemoglobin 12.7 g/dL (14.0-18.0); Mean Corpuscular Hemoglobin 31.9 pg (27.0-31.0); Mean Corpuscular Volume 96.7 fL (78.0-98.0); Mean Platelet Volume 8.5 fL (7.4-10.4); Platelet Count 93 thou/uL (130-400); RBC Distribution Width 12.7 % (11.5-14.5); Red Blood Cell (RBC) Count 3.97 mill/uL (4.70-6.10); White Blood Cell (WBC) Count 7.6 thou/uL (4.8-10.8)
[2018-07-28 10:50] LABS: Critical Call w/ Read Back 4
--- NOTE | 2018-07-28 11:54 | PDOC.PN ---
- Subjective Encounter Start Date: 07/28/18 Encounter Start Time: 08:30 Patient seen and examined. pt is weak, still has dysuria, as per pt was confused last night, no fever - Objective Resuscitation Status - Order Detail: 07/27/18 07:30 Resuscitation Status Routine Resuscitation Status: FULL: Full Resuscitation MAR Reviewed: Yes Vital Signs & Weight: Vital Signs (12 hours) Temp Pulse Resp BP BP Pulse Ox 07/28/18 09:38 93 L 07/28/18 09:25 75 178/80 H 07/28/18 07:51 98.3 F 75 16 178/80 H 93 L 07/28/18 04:46 98.2 F 80 20 171/76 H 93 L 07/28/18 00:00 98.4 F 69 18 128/67 94 L Weight Weight 237 lb 4.8 oz I&O: 07/27/18 07/28/18 07/29/18 06:59 06:59 06:59 Intake Total 3325 Output Total 1250 Balance 2075 Result Diagrams: 07/28/18 09:48 07/28/18 09:48 Additional Labs: Accuchecks 07/27/18 07/27/18 16:03 11:33 POC Glucose 136 H 162 H Phys Exam - Physical Examination Constitutional: NAD HEENT: PERRLA, moist MMs, sclera anicteric Neck: no JVD, supple Respiratory: no wheezing, no rales, no rhonchi Cardiovascular: RRR, no significant murmur, no rub Gastrointestinal: soft, non-tender, no distention, positive bowel sounds obesity+ Musculoskeletal: no edema, pulses present Neurological: non-focal, normal sensation Lymphatic: no nodes Psychiatric: normal affect, A&O x 3 Skin: no rash, normal turgor Dx/Plan (1) Acute worsening of stage 3 chronic kidney disease Code(s): N18.3 - CHRONIC KIDNEY DISEASE, STAGE 3 (MODERATE) Status: Acute (2) Lactic acidosis Code(s): E87.2 - ACIDOSIS Status: Acute (3) Sepsis with acute organ dysfunction Code(s): A41.9 - SEPSIS, UNSPECIFIED ORGANISM; R65.20 - SEVERE SEPSIS WITHOUT SEPTIC SHOCK Status: Acute (4) Thrombocytopenia Code(s): D69.6 - THROMBOCYTOPENIA, UNSPECIFIED Status: Acute (5) UTI (urinary tract infection) Status: Acute (6) Anxiety and depression Code(s): F41.9 - ANXIETY DISORDER, UNSPECIFIED; F32.9 - MAJOR DEPRESSIVE DISORDER, SINGLE EPISODE, UNSPECIFIED Status: Chronic (7) Asthma Code(s): J45.909 - UNSPECIFIED ASTHMA, UNCOMPLICATED Status: Chronic (8) BPH (benign prostatic hyperplasia) Code(s): N40.0 - BENIGN PROSTATIC HYPERPLASIA WITHOUT LOWER URINRY TRACT SYMP Status: Chronic (9) CAD (coronary artery disease) Code(s): I25.10 - ATHSCL HEART DISEASE OF [place] CORONARY ARTERY W/O ANG PCTRS Status: Chronic (10) Diabetes type 2, controlled Code(s): E11.9 - TYPE 2 DIABETES MELLITUS WITHOUT COMPLICATIONS Status: Chronic (11) Dyslipidemia Code(s): E78.5 - HYPERLIPIDEMIA, UNSPECIFIED Status: Chronic (12) Hypertension Code(s): I10 - ESSENTIAL (PRIMARY) HYPERTENSION Status: Chronic (13) CHICO (obstructive sleep apnea) Code(s): G47.33 - OBSTRUCTIVE SLEEP APNEA (ADULT) (PEDIATRIC) Status: Chronic (14) Parkinson disease Code(s): G20 - PARKINSON'S DISEASE Status: Chronic - Plan cont current plan of care, plan discussed w/ family, continue antibiotics, PT/OT * platelet count dropping, so will dc lovenox * continue rocephin * labs morales pt has improvement but not clinically * medication reviewed as below * symptomatic treatment * continue PT * will check post void residual volume * discussed with . Review of Systems - Review of Systems Constitutional: weakness. negative: fever, chills, sweats, malaise, other ENT: negative: Ear Pain, Ear Discharge, Nose Pain, Nose Discharge, Nose Congestion, Mouth Pain, Mouth Swelling, Throat Pain, Throat Swelling, Other Respiratory: negative: Cough, Dry, Shortness of Breath, Hemoptysis, SOB with Excertion, Pleuritic Pain, Sputum, Wheezing Cardiovascular: negative: chest pain, palpitations, orthopnea, paroxysmal nocturnal dyspnea, edema, light headedness, other Gastrointestinal: negative: Nausea, Vomiting, Abdominal Pain, Diarrhea, Constipation, Melena, Hematochezia, Other Genitourinary: Dysuria. negative: Frequency, Incontinence, Hematuria, Retention , Other Musculoskeletal: negative: Neck Pain, Shoulder Pain, Arm Pain, Back Pain, Hand Pain, Leg Pain, Foot Pain, Other Neurological: Confusion. negative: Weakness, Numbness, Incoordination, Change in Speech, Seizures, Other - Medications/Allergies Allergies/Adverse Reactions: Allergies Allergy/AdvReac Type Severity Reaction Status Date / Time codeine Allergy Verified 07/26/18 22:13 antihistamines Allergy Severe Uncoded 10/19/15 12:47 Medications: Current Medications Acetaminophen (Tylenol) 650 mg PO Q6H PRN PRN Reason: Mild Pain (1-3) Last Admin: 07/27/18 21:06 Dose: 650 mg Albuterol Sulfate (Ventolin) 7.5 mg NEB Q6HR PRN PRN Reason: SOB &/or Wheezing Amantadine HCl (Symmetrel) 100 mg PO BID [facility] Last Admin: 07/28/18 09:27 Dose: 100 mg Amlodipine Besylate (Norvasc) 5 mg PO DAILY [facility] Last Admin: 07/28/18 09:25 Dose: 5 mg Artificial Tears (Tears Naturale) 2 drop EA EYE PRN PRN PRN Reason: Dry Eyes Aspirin (Aspirin) 325 mg PO DAILY [facility] Last Admin: 07/28/18 09:26 Dose: 325 mg Bisacodyl (Dulcolax) 10 mg PO DAILYPRN PRN PRN Reason: Constipation Bisacodyl (Dulcolax) 10 mg GA DAILYPRN PRN PRN Reason: Constipation Calcium Carbonate (Tums) 1,000 mg PO Q4H PRN PRN Reason: Heartburn or Indigestion Carbidopa/Levodopa (Sinemet 25-100) 1 tab PO QID [facility] Last Admin: 07/28/18 09:27 Dose: 1 tab Clonidine (Catapres) 0.1 mg PO Q4H PRN PRN Reason: SBP>160 Last Admin: 07/27/18 04:54 Dose: 0.1 mg Clopidogrel Bisulfate (Plavix) 75 mg PO DAILY [facility] Last Admin: 07/28/18 09:26 Dose: 75 mg Dextrose/Water (Dextrose 50%) 25 gm SLOW IVP PRN PRN PRN Reason: Hypoglycemia Donepezil HCl (Aricept) 10 mg PO HS [facility] Last Admin: 07/27/18 20:28 Dose: 10 mg Enoxaparin Sodium (Lovenox) 40 mg SC 0900 [facility] Last Admin: 07/28/18 09:27 Dose: Not Given Famotidine (Pepcid) 20 mg PO BID [facility] Last Admin: 07/28/18 09:26 Dose: 20 mg Fluoxetine HCl (Prozac) 10 mg PO DAILY [facility] Last Admin: 07/28/18 09:26 Dose: 10 mg Glucagon (Glucagon) 1 mg IM PRN PRN PRN Reason: Hypoglycemia Guaifenesin (Robitussin Sf) 200 mg PO Q4H PRN PRN Reason: Cough Hydralazine HCl (Apresoline) 10 mg SLOW IVP Q4H PRN PRN Reason: SBP>170 Last Admin: 07/27/18 03:31 Dose: 10 mg Dextrose/Water (D5w) 1,000 mls @ 0 mls/hr IV .Q0M PRN PRN Reason: Hypoglycemia Ceftriaxone Sodium 1 gm/ (Sodium Chloride) 100 mls @ 200 mls/hr IVPB 1800 [facility] Last Admin: 07/27/18 17:31 Dose: 100 mls Insulin Human Lispro (Humalog) 0 units SC .MODERATE SLIDING SC PRN PRN Reason: Moderate Correctional Scale Insulin Human Lispro (Humalog) 0 units SC .BEDTIME SLIDING SC PRN PRN Reason: Bedtime Correctional Scale Isosorbide Mononitrate (Imdur Er) 30 mg PO DAILY [facility] Last Admin: 07/28/18 09:26 Dose: 30 mg Labetalol HCl (Normodyne) 10 mg SLOW IVP Q4H PRN PRN Reason: SBP Greater Than 170 Loperamide HCl (Imodium) 2 mg PO PRN PRN PRN Reason: Diarrhea/Loose Stools Loratadine (Claritin) 10 mg PO DAILYPRN PRN PRN Reason: Sinus Symptoms Metoprolol Succinate (Toprol Xl) 12.5 mg PO BID [facility] Last Admin: 07/28/18 09:26 Dose: 12.5 mg Mineral Oil/White Petrolatum (Eucerin Cream) 0 gm TOP BIDPRN PRN PRN Reason: Dry Skin Nitroglycerin (Nitrostat) 0.4 mg SL Q5MIN PRN PRN Reason: Chest Pain Ondansetron HCl (Zofran) 4 mg IVP Q6H PRN PRN Reason: Nausea/Vomiting Last Admin: 07/27/18 05:20 Dose: 4 mg Ondansetron HCl (Zofran Odt) 4 mg PO Q6H PRN PRN Reason: Nausea/Vomiting Pravastatin Sodium (Pravachol) 40 mg PO HS [facility] Last Admin: 07/27/18 20:29 Dose: 40 mg Saccharomyces Boulardii (Florastor) 250 mg PO DAILY [facility] Last Admin: 07/28/18 09:26 Dose: 250 mg Senna/Docusate Sodium (Senokot S) 2 tab PO BID PRN PRN Reason: Constipation Sodium Chloride ([place] Nasal [place] 0.65%) 0 ml EA NARE QIDPRN PRN PRN Reason: Nasal Congestion Tamsulosin HCl (Flomax) 0.4 mg PO DAILY [facility] Last Admin: 07/28/18 09:26 Dose: 0.4 mg Throat Lozenges (Cepastat Lozenges) 1 hugo PO Q2H PRN PRN Reason: Sore Throat Zolpidem Tartrate (Ambien) 5 mg PO HSPRN PRN PRN Reason: Insomnia
[2018-07-28] MEDS: cefTRIAXone\\ROCEPHIN 1 GM in Sodium Chloride 0.9% 100 ML IVPB SCH (17:10)
[2018-07-28] MEDS: Pravastatin Sodium 40 MG TAB PO SCH (20:51)
[2018-07-28] MEDS: Donepezil HCl 10 MG TAB PO SCH (20:51)
[2018-07-29] MEDS: hydrALAZINE 20 MG/ML VIAL SLOW IVP PRN (04:08)
[2018-07-29] MEDS: cloNIDine 0.1 MG TAB PO PRN (05:26)
[2018-07-29] MEDS: Amantadine HCl 100 mg Capsule PO SCH (09:50)
[2018-07-29] MEDS: Aspirin 325 MG TAB PO SCH (09:50)
[2018-07-29] MEDS: Carbidopa/Levodopa 25-100 mg Tablet PO SCH ×2 (09:50→14:31)
[2018-07-29] MEDS: Clopidogrel Bisulfate 75 MG TAB PO SCH (09:50)
[2018-07-29] MEDS: Famotidine 20 MG TAB PO SCH (09:50)
[2018-07-29] MEDS: Amlodipine 5 MG TAB PO SCH (09:50)
[2018-07-29] MEDS: Tamsulosin HCl 0.4 MG CAP PO SCH (09:50)
[2018-07-29] MEDS: FLUoxetine HCl 10 MG CAP PO SCH (09:51)
[2018-07-29] MEDS: Saccharomyces boulardii 250 MG CAP PO SCH (09:51)
--- NOTE | 2018-07-29 11:47 | DIS ---
DATE OF ADMISSION: 07/26/2018 DATE OF DISCHARGE: 07/29/2018 PRIMARY CARE PHYSICIAN: Lincoln Art MD DISCHARGE DISPOSITION: Home with Home Health. PRIMARY DISCHARGE DIAGNOSES: Acute on chronic kidney failure, baseline chronic kidney disease stage 3, lactic acidosis, sepsis with acute organ dysfunction, thrombocytopenia, and urinary tract infection. SECONDARY DISCHARGE DIAGNOSES: Parkinson disease, obstructive sleep apnea, hypertension, dyslipidemia, diabetes type 2, coronary artery disease, benign enlargement of prostate, asthma, anxiety and depression, CKD stage 3. PRIMARY PROCEDURE/OPERATION: None. RADIOLOGICAL INVESTIGATION: CT brain negative for any acute process. Chest x-ray normal. CT abdomen and pelvis on admission showed no acute process. SIGNIFICANT LABORATORY DATA: WBC 7.6, hemoglobin 12.7, platelets 93. Sodium 133, potassium 4.1, BUN 15, creatinine 1.28, calcium 9.0. Cardiac enzyme negative. Urinalysis suggestive of UTI. Urine culture grew E coli. Blood culture negative. DISCHARGE MEDICATIONS: New medication; 1. Cipro 500 mg p.o. b.i.d. for 7 days. 2. Florastor 250 mg p.o. daily for 7 days. 3. Flomax 0.4 mg p.o. daily. 4. Pravastatin 40 mg p.o. at bedtime. 5. Toprol-XL 12.5 mg p.o. b.i.d. 6. Imdur 30 mg p.o. daily. 7. Prozac 10 mg p.o. daily. 8. Aricept 10 mg p.o. at bedtime. 9. Plavix 75 mg p.o. daily. 10. Sinemet 1 tablet q.i.d. 11. Amlodipine 5 mg p.o. daily. 12. Amantadine 100 mg p.o. b.i.d. 13. Tylenol 325 mg p.o. at bedtime. 14. Ventolin nebulization q.6 hourly p.r.n. CONTRAINDICATION: None. CODE STATUS: Full code. INPATIENT TAX PROFESSIONAL: None. ALLERGY: Codeine. DISCHARGE PLAN: Posthospital, the patient will follow up with primary care physician in one week. HOSPITAL COURSE: A 72-year-old male, who was admitted by Dr. Martine Snell. Please see her H and P for further detail. The patient was admitted for UTI symptoms. He was having dysuria, increased frequency. His urinalysis was also consistent with UTI. He was having altered mental status. He was meeting sepsis criteria. He was treated while in hospital with Rocephin. He was given IV fluid. His leukocytosis resolved. He did not have any further fever while in the hospital. He remained hemodynamically stable. His confusion resolved and up to his baseline level. The patient has physical deconditioning and we offered a group home home versus rehab placement to , but the patient and prefers to go home with resuming home health. At this point, based on culture result, we are changing antibiotic therapy to Cipro for another 7 days. While in hospital, we checked postvoid residual volume, which was unremarkable. The patient will continue all his previous medication as above. The patient is seen and examined at bedside today. All review of systems reviewed with him and negative. Plan of care discussed with the family member. The patient will be discharged home later on today after physical therapy. Job ID: [id number]
[2018-07-29 11:59] LABS: Anion Gap 14 mmol/L (10-20); BUN (Urea Nitrogen) 12 mg/dL (8.4-25.7); Calc. Creatinine Clearance 103 mL/min (70-130); Calcium 8.8 mg/dL (7.8-10.44); Carbon Dioxide 22 mmol/L (23-31); Chloride 95 mmol/L (98-107); Estimated GFR-MDRD 76; Glucose 165 mg/dL (83-110); Potassium 3.7 mmol/L (3.5-5.1); Sodium 127 mmol/L (136-145)
[2018-07-29 12:10] LABS: #Eosinphils 0.1 thou/uL (0.0-0.7); #Lymphocytes 0.5 thou/uL (1.20-3.40); #Monocytes 0.4 thou/uL (0.11-0.59); #Neutrophils 3.3 thou/uL (1.40-6.50); %Basophils 0.6 % (0.0-1.0); %Eosinophils 2.9 % (0.0-10.0); %Lymphocytes 10.3 % (21.0-51.0); %Monocytes 9.7 % (0.0-10.0); %Neutrophils 76.5 % (42.0-75.0); Mean Corpuscular HGB CONC 34.3 g/dL (32.0-36.0); Mean Corpuscular Hemoglobin 32.7 pg (27.0-31.0); Mean Corpuscular Volume 95.4 fL (78.0-98.0); Mean Platelet Volume 8.4 fL (7.4-10.4); Platelet Count 105 thou/uL (130-400); RBC Distribution Width 12.5 % (11.5-14.5); Red Blood Cell (RBC) Count 3.68 mill/uL (4.70-6.10); White Blood Cell (WBC) Count 4.4 thou/uL (4.8-10.8)
[2018-07-29 13:32] VITALS: BP 147/78; TEMP 99.6
--- NOTE | 2018-07-29 15:58 | PQF ---
DATE: 07-29-18 ATTN: DR. RICHARD JAMES Please exercise your independent, professional judgment in responding to the clarification form. Clinical indicators are provided on the bottom of this form for your review Please check appropriate box(s): [ x ] Encephalopathy: Type: [ x ] Acute [ ] Subacute [ ] Chronic Etiology: [ ] Hypertensive [ ] Metabolic [ ] Toxic [ x ] Septic [ ] Other (please specify) [ ] Transient Alteration of Awareness [ ] Other diagnosis [ ] Unable to determine In addition, please specify: Present on Admission (POA): [ x] Yes [ ] No [ ] Unable to determine For continuity of documentation, please document condition throughout progress notes and discharge summary. Thank You. CLINICAL INDICATORS - SIGNS / SYMPTOMS / LABS ER: DISORIENTED/POSS UTI, MENTAL STATUS CHANGES ER DX: ACUTE SEPSIS WITH UTI, PARKINSON'S H&P: BROUGHT TO THE ER BY HIS WHO NOTICED THAT HE HAS BEEN HAVING SOME CONFUSION, HE WAS ACTING VERY DISORIENTED TODAY, HE IS ORIENTED TO SELF AND PLACE, SLIGHT AGITATION NOTICED D/C SUMMARY DR. JAMES 07-29-18: HIS CONFUSION RESOLVED AND UP TO BASELINE LEVEL. RISK FACTORS: ER DX: ACUTE SEPSIS WITH UTI, PARKINSON'S D/C SUMMARY DR. JAMES 07-29-18: ACUTE ON CHRONIC KIDNEY FAILURE, LACTIC ACIDOSIS, SEPSIS WITH ACUTE ORGAN DYSFUNCTION, THROMBOCYTOPENIA, UTI, CKD 3, DM 2 TREATMENTS: ER: NS IVF 1000ML, VANCOMYCIN IV, CEFTRIAXONE IV, NS IVF 1000ML (This form is maintained as a part of the permanent medical record) 2014 [employer]. All Rights Reserved [email or web address] [email or web address] Office: [phone] [facility]
== END 2018-07-29 14:49 | disposition home health service (06) | DRG 871 ==
LOC: SCSER 16:55 → T4-A 22:05
PROVIDERS: ADMIT Internal Medicine; ATTEND Internal Medicine
DX: A41.51 Sepsis due to Escherichia coli [E. coli] (principal); G93.41 Metabolic encephalopathy; N39.0 Urinary tract infection, site not specified; N17.9 Acute kidney failure, unspecified; E87.2 Acidosis; R65.20 Severe sepsis without septic shock; G20 Parkinson's disease; I12.9 Hypertensive chronic kidney disease with stage 1 through stage 4 chronic kidney disease, or unspecified chronic kidney disease; E11.22 Type 2 diabetes mellitus with diabetic chronic kidney disease; N18.3 Chronic kidney disease, stage 3 (moderate); E78.5 Hyperlipidemia, unspecified; I25.10 Atherosclerotic heart disease of native coronary artery without angina pectoris; E11.42 Type 2 diabetes mellitus with diabetic polyneuropathy; G47.33 Obstructive sleep apnea (adult) (pediatric); F32.9 Major depressive disorder, single episode, unspecified; N40.0 Benign prostatic hyperplasia without lower urinary tract symptoms; J45.909 Unspecified asthma, uncomplicated; D69.6 Thrombocytopenia, unspecified; F41.9 Anxiety disorder, unspecified; Z88.5 Allergy status to narcotic agent; Z79.899 Other long term (current) drug therapy; Z95.1 Presence of aortocoronary bypass graft
CPT/HCPCS: 36415; 36416; 51701; 70450; 71045; 74176; 80048; 80053; 81003; 81015; 83605; 84484; 85025; 87040; 87077; 87086; 87186; 93005; 93010; 96365; 96366; 96367; J0360; J0696; J1650; J2405; J3370; J7050

== ENCOUNTER 2019-01-28 09:56 | Emergency (ER) | payer MEDICARE, BC ==
--- NOTE | 2019-01-28 11:03 | RAD ---
Exam:4 views right knee HISTORY: Pain. Trauma. Fall. COMPARISON: None FINDINGS: Mild degenerative change in the medial compartment. No fracture. No joint effusion. Vascula r calcifications are noted. There is moderate degenerative change in the patellofemoral compartment IMPRESSION: Bicompartmental degenerative change. No fracture.
--- NOTE | 2019-01-28 11:05 | RAD ---
Exam:Right ankle 3 views HISTORY: Pain. Trauma. COMPARISON: None Correlation: Right foot radiograph 10/15/2015 and 10/28/2015 FINDINGS: Chronic changes of the level of the distal tibia and fibula with calcifications of the synd esmosis. There is mild bony mineralization. No acute fracture. Spurring of the calcaneus at the plantar aponeurosis is noted. Resection of the fifth metatarsal is redemonstrated IMPRESSION: No fracture.
--- NOTE | 2019-01-28 11:06 | RAD ---
Exam:3 views right hand HISTORY: Fall. Pain. COMPARISON: None FINDINGS: Distal radius fracture with probable intra-articular extension. Ulnar styloid fracture. With regards to the osseous structures the right hand, no acute fractures. Joint spaces are preserved . IMPRESSION: Presumed distal radius and ulna fractures. Correlate clinically. Dedicated wrist radiogra ph is recommended.
--- NOTE | 2019-01-28 11:08 | RAD ---
Exam: 2 views of lumbar spine HISTORY: Fall. Pain. COMPARISON: [id number] FINDINGS: Previous vertebral plasty change in the distal thoracic spine 5 lumbar type bodies. Vertebral body height is maintained. No fracture. Stable moderate significant c hange at L4-L5. Posterior element hypertrophy at L4-L5 and L5-S1. IMPRESSION: No acute fracture. Chronic changes as described above
--- NOTE | 2019-01-28 11:39 | RAD ---
XR Wrist 3 Rt View STANDARD History: Fracture Comparison: Plain radiograph same day Findings: Chronic distal radius fracture with likely an acute superimposed component along the dorsal lateral lips as well as the ulnar styloid. Moderate wrist joint effusion. Extensive positive ulnar variance with volar subluxation. Impression: Likely a chronic distal radius fracture with acute superimposed fracture of the dorsal li p, intra-articular, as well as the ulnar styloid base.
== END 2019-01-28 12:00 | disposition home or self-care (01) ==
LOC: SCSER 09:56
DX: S39.012A Strain of muscle, fascia and tendon of lower back, initial encounter (principal); S86.911A Strain of unspecified muscle(s) and tendon(s) at lower leg level, right leg, initial encounter; G47.30 Sleep apnea, unspecified; I10 Essential (primary) hypertension; E78.00 Pure hypercholesterolemia, unspecified; I25.10 Atherosclerotic heart disease of native coronary artery without angina pectoris; F32.9 Major depressive disorder, single episode, unspecified; Z79.899 Other long term (current) drug therapy; W18.30XA Fall on same level, unspecified, initial encounter
CPT/HCPCS: 29125; 72100

== ENCOUNTER 2019-02-12 10:58 | Outpatient (CLI) | payer MEDICARE, BC ==
--- NOTE | 2019-02-12 11:53 | RAD ---
TWO VIEW CHEST: HISTORY: Dyspnea. FINDINGS: Evidence of old left rib fractures with pleural thickening in the left lateral chest is noted. Lungs appear clear of infiltrate. No evidence of vascular congestion or edema. Heart size within normal range. Postop sternotomy changes are noted. Compression deformity with vertebroplasty change at the T12 vertebra noted. IMPRESSION: No acute lung process. POS: H
== END 2019-02-12 10:59 | disposition home or self-care (01) ==
LOC: RAD 10:58
PROVIDERS: ATTEND Internal Medicine Critical Care Medicine
DX: R06.00 Dyspnea, unspecified (principal)
CPT/HCPCS: 71046

== ENCOUNTER 2019-06-02 11:35 | Inpatient (IN) | payer MEDICARE, BC ==
[2019-06-02 12:44] LABS: Bacteria/HPF 4+ HPF (None Seen); Bilirubin Negative (Negative); Blood, Urine 1+ (Negative); Clarity Extra Turbid (Clear); Glucose, Urine (Dipstick) Normal (Negative); Leukocyte 500 Leu/uL (Negative); Nitrite Negative (Negative); Protein, Urine (Dipstick) 30 mg/dL (Neg-Trace); Squamous Epithelial None Seen HPF (0-3); Urobilinogen Normal mg/dL (Less than 2); WBC/HPF Greater than 50 HPF (0-3)
--- NOTE | 2019-06-02 13:00 | RAD ---
Chest AP view INDICATION: Altered mental status COMPARISON: Prior chest radiograph dated February 12, 2019 FINDINGS: Lungs:Stable COPD change. There is a stable calcific granuloma in the right upper lobe. Cardiac silhouette:Stable cardiomegaly and post-CABG change Pulmonary vasculature:Normal Pleural spaces:No pleural effusion or pneumothorax is demonstrated. Upper abdomen:No abnormality seen. Osseous structures: There is stable proximal left humerus fracture that appears incompletely healed. Right total shoulder prosthesis is unchanged. Additional findings:None. IMPRESSION: Stable exam. No acute cardiopulmonary abnormality
[2019-06-02 13:02] LABS: Base Excess-Venous 1.7 mmol/L (-2.0 to 3.0); Bicarbonate (HCO3v) 25.8 mmol/L (22.0-28.0); CO2 Tension (PvCO2) 38.2 mmHg (40.0-50.0); Calcium, Ionized 1.06 mmol/L (See Comments:); Chloride 100 mmol/L (98-107); Hemoglobin - Calc 14.3 g/dL (14.0-18.0); Potassium 4.2 mmol/L (3.5-5.1); Sodium 138 mmol/L (138-145); vO2 Saturation-calc 93.6 % (60.0-85.0)
[2019-06-02 13:14] LABS: #Eosinphils 0.2 thou/uL (0.0-0.7); #Lymphocytes 0.9 thou/uL (1.20-3.40); #Monocytes 0.7 thou/uL (0.11-0.59); #Neutrophils 7.9 thou/uL (1.40-6.50); %Basophils 0.1 % (0.0-1.0); %Eosinophils 2.3 % (0.0-10.0); %Lymphocytes 9.4 % (21.0-51.0); %Monocytes 7.5 % (0.0-10.0); %Neutrophils 80.8 % (42.0-75.0); Hemoglobin 13.3 g/dL (14.0-18.0); Mean Corpuscular HGB CONC 33.9 g/dL (32.0-36.0); Mean Corpuscular Hemoglobin 31.9 pg (27.0-31.0); Mean Corpuscular Volume 94.1 fL (78.0-98.0); Mean Platelet Volume 8.4 fL (7.4-10.4); Platelet Count 165 thou/uL (130-400); RBC Distribution Width 12.4 % (11.5-14.5); Red Blood Cell (RBC) Count 4.19 mill/uL (4.70-6.10); White Blood Cell (WBC) Count 9.8 thou/uL (4.8-10.8)
--- NOTE | 2019-06-02 13:24 | CT ---
CT BRAIN WITHOUT CONTRAST: HISTORY: Altered mental status. COMPARISON: 07/26/2018 FINDINGS: Changes of cortical atrophy and chronic small vessel ischemic disease are again seen. The ventricular size is stable and the basilar cisterns are patent. A lacunar infarct in the brainstem is again seen No evidence of acute infarct, hemorrhage, midline shift or abnormal extraaxial fluid collections note d. The bony calvarium is intact. There is a mucosal lesion in the paranasal sinuses. IMPRESSION: No CT evidence of acute intracranial process. POS: [facility]
[2019-06-02] MEDS ORDERED: cefTRIAXone\\ROCEPHIN 2 GM VIAL ONE (13:38)
[2019-06-02] MEDS ORDERED: Sodium Chloride 0.9% 100 ML ONE (13:38)
[2019-06-02 13:43] LABS: ALT (SGPT) Less than 7 U/L (8-55); AST (SGOT) 14 U/L (5-34); Albumin 3.8 g/dL (3.4-4.8); Alkaline Phosphatase 86 U/L (40-110); Anion Gap 11 mmol/L (10-20); BUN (Urea Nitrogen) 18 mg/dL (8.4-25.7); Bilirubin, Total 1.2 mg/dL (0.2-1.2); Calc. Creatinine Clearance 0 mL/min (70-130); Calcium 9.4 mg/dL (7.8-10.44); Carbon Dioxide 25 mmol/L (23-31); Chloride 102 mmol/L (98-107); Estimated GFR-MDRD 39; Globulin 3.4 g/dL (2.4-3.5); Glucose 177 mg/dL (83-110); Potassium 4.3 mmol/L (3.5-5.1); Protein, Total 7.2 g/dL (5.8-8.1); Sodium 134 mmol/L (136-145)
[2019-06-02] MEDS ORDERED: Senokot S 8.6-50 MG TAB PO PRN (15:16)
[2019-06-02] MEDS: Sodium Chloride 0.9% 1,000 ML IV SCH (18:07)
[2019-06-02 18:37] VITALS: BMI 29.2
--- NOTE | 2019-06-03 01:47 | HP ---
PRIMARY CARE PHYSICIAN: Lincoln Art MD CHIEF COMPLAINT: Hallucinations, altered mental status, increased tremors. HISTORY OF PRESENT ILLNESS: Mr. Bright is a 73-year-old man with known Parkinson disease, sees Dr. Nettles, Neurology. reports that he has been having hallucinations on and off for the last several months, was given a new medication but he had some side effects to it, so they discontinued it. Reports that hallucinations restarted and reports that she called Dr. Nettles's office and tried to get the medication restarted. She took the patient to [place] thinking that Dr. Nettles would see the patient over at the [facility], but he evidently does not round over there. So when the hallucinations recurred again last night, she brought him to the emergency room at [place] with the request of seeing Dr. Nettles while the patient was here. While being evaluated in the emergency room, the patient's vital signs, within normal limits, temp 98.6. Lab work showed sodium of 134, creatinine at 1.72, which is greater than his baseline, glucose at 177. CT of the brain was negative for any acute findings. Lactic acid 1.6. White blood cell count 9.8, hemoglobin 13.3, hematocrit 39.4. Chest x-ray was negative for any acute findings. Urine, however, was extra turbid and leukocytes over 500, protein, ketones, blood, white blood cell count greater than 50, and 4+ bacteria. This has been sent out for culture. The patient admitted to stroke unit for further management. REVIEW OF SYSTEMS: The patient denies any pain. Speech is at times harder to understand, but reports this is at baseline. He also has some hand tremors which are also at baseline. reports hallucinations. All systems are reviewed and are negative unless mentioned in the HPI or above. PAST MEDICAL HISTORY: Pertinent for hypertension, high cholesterol, sleep apnea, coronary artery disease, Parkinson's. PAST SURGICAL HISTORY: Quadruple bypass, seven stents, cholecystectomy, right pinky toe amputation, orthopedic surgery, right shoulder, right ankle. PSYCH HISTORY: Some depression. SOCIAL HISTORY: Denies any drug use, alcohol use. No smoking history. ALLERGIES: ANTIHISTAMINES, HYDROCODONE. HOME MEDICATIONS: 1. Aspirin 81 mg p.o. daily. 2. Carbidopa/levodopa 25/100 q.i.d. 3. Aricept 10 mg p.o. daily. 4. Prozac 10 mg p.o. daily. 5. Metoprolol 12.5 mg p.o. b.i.d. 6. Singulair 10 mg p.o. daily. 7. Multivitamin one tablet p.o. daily. 8. Pravastatin 40 mg p.o. at bedtime. 9. Flomax 0.4 mg p.o. daily. PHYSICAL EXAMINATION: VITAL SIGNS: Temperature 98.9, pulse is 66, respirations are 18, pO2 saturations are 96% on room air, blood pressure 165/78. CONSTITUTIONAL: The patient appears nontoxic. He is alert and oriented to self and place. HEENT: Head is atraumatic and normocephalic. Eyes, pupils are equally round and reactive to light. ENT, mouth exam is normal. Mucous membranes are moist. NECK: Normal range of motion. Trachea is midline. RESPIRATORY/CHEST: Breath sounds are clear. Chest expansion is equal. CARDIOVASCULAR: Regular heart rate and rhythm. Heart sounds are normal. ABDOMEN: Nontender. Bowel sounds are heard. BACK: Normal range of motion. No CVA tenderness. EXTREMITIES: Upper extremities, normal range of motion. Sensation intact. Has a tremor. Radial pulses are normal. Lower extremities, normal range of motion. Motor strength is normal. Pedal pulses are normal. No edema is noted. NEURO: The patient is oriented to person and place. Speech is intermittently garbled, which reports is in baseline for the patient. SKIN: Warm, dry, normal in color for that is visualized. ASSESSMENT AND PLAN: 1. Altered mental status, potentially multifactorial. The patient does have a urinary tract infection. This has been cultured. Rocephin has been started in the emergency room. We will continue this daily. Gentle hydration, 75 mL per hour. We will obtain an echocardiogram and MRI of the brain in a.m. The patient sees Dr. Nettles as an outpatient. We have asked him to consult. The patient's asking for medication to be restarted that helped with his hallucinations. We have restarted his home medications. PT, OT, and speech have been ordered. 2. The patient with a history of hypertension. We will restart home medications. We will trend. 3. Acute on chronic kidney disease with urinary tract infection. We will gently hydrate, recheck value in the morning. 4. History of hyperlipidemia. We will restart home medications. 5. The patient is a DNR per patient's who is the surrogate decision maker. 6. Gastrointestinal and deep venous thrombosis prophylaxis have been started. 7. Hospital course is dependent on clinical findings. Job ID: [id number]
[2019-06-03 05:02] LABS: #Eosinphils 0.5 thou/uL (0.0-0.7); #Lymphocytes 1.1 thou/uL (1.20-3.40); #Monocytes 0.7 thou/uL (0.11-0.59); #Neutrophils 6.1 thou/uL (1.40-6.50); %Basophils 0.4 % (0.0-1.0); %Eosinophils 6.3 % (0.0-10.0); %Lymphocytes 13.5 % (21.0-51.0); %Monocytes 7.9 % (0.0-10.0); Hemoglobin 11.6 g/dL (14.0-18.0); Mean Corpuscular HGB CONC 34.5 g/dL (32.0-36.0); Mean Corpuscular Volume 92.6 fL (78.0-98.0); Mean Platelet Volume 7.8 fL (7.4-10.4); Platelet Count 158 thou/uL (130-400); RBC Distribution Width 12.2 % (11.5-14.5); Red Blood Cell (RBC) Count 3.63 mill/uL (4.70-6.10); White Blood Cell (WBC) Count 8.4 thou/uL (4.8-10.8)
[2019-06-03 05:26] LABS: ALT (SGPT) Less than 7 U/L (8-55); AST (SGOT) 10 U/L (5-34); Albumin 3.4 g/dL (3.4-4.8); Alkaline Phosphatase 74 U/L (40-110); Anion Gap 8 mmol/L (10-20); BUN (Urea Nitrogen) 16 mg/dL (8.4-25.7); Bilirubin, Total 0.8 mg/dL (0.2-1.2); Calc. Creatinine Clearance 58 mL/min (70-130); Calcium 8.9 mg/dL (7.8-10.44); Carbon Dioxide 26 mmol/L (23-31); Chloride 107 mmol/L (98-107); Estimated GFR-MDRD 44; Globulin 3.1 g/dL (2.4-3.5); Glucose 140 mg/dL (83-110); Potassium 4.1 mmol/L (3.5-5.1); Protein, Total 6.5 g/dL (5.8-8.1); Sodium 137 mmol/L (136-145)
[2019-06-03] MEDS: Sodium Chloride 0.9% 1,000 ML IV SCH ×2 (05:55→21:16)
[2019-06-03] MEDS: Famotidine 20 MG TAB PO SCH (08:54)
[2019-06-03] MEDS: Aspirin 81 mg Enteric Coated Tablet PO SCH (08:54)
[2019-06-03] MEDS: Donepezil HCl 10 MG TAB PO SCH (08:54)
[2019-06-03] MEDS: Carbidopa/Levodopa 25-100 mg Tablet PO SCH ×4 (08:54→21:17)
[2019-06-03] MEDS: Metoprolol Tartrate 25 MG TAB PO SCH ×2 (08:54→21:17)
[2019-06-03] MEDS: FLUoxetine HCl 10 MG CAP PO SCH (08:54)
[2019-06-03] MEDS: Montelukast Sodium 10 mg Tablet PO SCH (08:55)
[2019-06-03] MEDS: Tamsulosin HCl 0.4 MG CAP PO SCH (08:55)
[2019-06-03] MEDS ORDERED: Famotidine/PF 20 mg/2ml Vial SLOW IVP SCH (09:00)
[2019-06-03] MEDS ORDERED: Lorazepam 2 MG/ML VIAL SLOW IVP PRN (10:02)
--- NOTE | 2019-06-03 16:15 | PDOC.HOSPP ---
- Subjective Encounter Date: 06/03/19 Encounter Time: 16:15 Subjective: f/u for AMS, UTI with GNR on Rocephin. Remains agitated and tremors precluded completing MRI brain this am. - Objective Vital Signs & Weight: Vital Signs (12 hours) Temp Pulse Pulse Resp BP BP BP 06/03/19 15:50 98.5 F 74 16 140/80 06/03/19 14:00 67 191/86 H 165/91 H 06/03/19 12:00 98.2 F 62 18 158/88 H 06/03/19 07:58 98.8 F 74 20 178/106 H 06/03/19 04:52 164/102 H Pulse Ox 06/03/19 15:50 96 06/03/19 14:00 06/03/19 12:00 97 06/03/19 07:58 93 L 06/03/19 04:52 Weight Admit Weight 215 lb 4.8 oz Weight 215 lb 4.8 oz I&O: 06/02/19 06/03/19 06/04/19 06:59 06:59 06:59 Intake Total 100 1 Output Total 100 Balance 0 1 Result Diagrams: 06/03/19 04:40 06/03/19 04:40 Additional Labs: Microbiology 06/02/19 12:16 Nasal swab Influenza Types A,B Direct EIA - Final 06/02/19 12:50 Venous blood - Right Hand Blood Culture - Preliminary Specimen has been received and culture in progress. No Growth to date. 06/02/19 12:50 Venous blood - Right Arm Blood Culture - Preliminary Specimen has been received and culture in progress. No Growth to date. 06/02/19 12:06 Urine Straight Catheter Urine Culture - Preliminary Gram Negative [facility] Tests 06/02/19 06/02/19 06/02/19 12:50 12:50 12:50 Hgb 13.3 L Neutrophils % 80.8 H Creatinine 1.72 H Lactic Acid 1.6 06/03/19 04:40 Hgb Neutrophils % 72.0 Creatinine Lactic Acid Radiology Reviewed by me: Yes (CT brain - neg; PCXR - neg) EKG Reviewed by me: Yes (Tele - SR) Hospitalist ROS - Medication Medications: Active Medications Generic Name Dose Route Start Last Admin Trade Name Freq PRN Reason Stop Dose Admin Aspirin 81 mg 06/03/19 09:00 06/03/19 08:54 Ecotrin PO 81 mg DAILY MARY Administration Carbidopa/Levodopa 1 tab 06/03/19 09:00 06/03/19 12:35 Sinemet 25-100 PO 1 tab QID MARY Administration Donepezil HCl 10 mg 06/03/19 09:00 06/03/19 08:54 Aricept PO 10 mg DAILY MARY Administration Famotidine 20 mg 06/03/19 09:00 06/03/19 08:54 Pepcid PO 20 mg DAILY MARY Administration Fluoxetine HCl 10 mg 06/03/19 09:00 06/03/19 08:54 Prozac PO 10 mg DAILY MARY Administration Sodium Chloride 1,000 mls @ 75 mls/hr 06/02/19 15:30 06/03/19 05:55 Normal Saline 0.9% IV 1,000 mls .[id number] MARY Administration Lorazepam 1 mg 06/03/19 10:02 06/03/19 10:48 Ativan SLOW IVP 06/03/19 18:00 1 mg ONE PRN Administration 30 MIN BEFORE MRI Metoprolol Tartrate 12.5 mg 06/03/19 09:00 06/03/19 08:54 Lopressor PO 12.5 mg BID AMRY Administration Montelukast Sodium 10 mg 06/03/19 09:00 06/03/19 08:55 Singulair PO 10 mg DAILY MARY Administration Tamsulosin HCl 0.4 mg 06/03/19 09:00 06/03/19 08:55 Flomax PO 0.4 mg DAILY MARY Administration - Exam General Appearance: NAD, awake alert Eye: PERRL, anicteric sclera ENT: normocephalic atraumatic, no oropharyngeal lesions Neck: supple, symmetric, no JVD, no thyromegaly Heart: RRR, no gallops, no rubs, normal peripheral pulses Respiratory: CTAB, no wheezes, no rales, no ronchi, normal chest expansion Gastrointestinal: soft, non-tender, non-distended, normal bowel sounds Extremities: no cyanosis, no clubbing, no edema Skin: normal turgor, no lesions Musculoskeletal - other findings: tremors globally Psychiatric: oriented to person Psychiatric - other findings: agitated, mumbling, confused Hosp A/P (1) UTI (urinary tract infection) Status: Acute Plan: GNR on Ucx initially, continue Rocephin pending final identification/ sensitivities (2) Acute metabolic encephalopathy Code(s): G93.41 - METABOLIC ENCEPHALOPATHY Status: Acute Plan: Likely exacerbated with #1, continue supportive mgmt, CT brain negative, Neurology consult pending (3) Acute worsening of stage 3 chronic kidney disease Code(s): N18.3 - CHRONIC KIDNEY DISEASE, STAGE 3 (MODERATE) Status: Acute Plan: Improved with IVF hydration, avoid nephrotoxic meds and limit contrast exposure , serial creatinine (4) Parkinson disease Code(s): G20 - PARKINSON'S DISEASE Status: Chronic Plan: Advanced process, continue Sinemet 25/100 po QID, PT evaluation for functional assessment, fall risk precautions - Plan plan discussed w/ family, continue antibiotics, PT/OT, nephrology social worker, DVT proph w/SCDs Stable currently Continue Rocephin 1gm IV daily Continue low-volume IVF's Avoid nephrotoxic agents and limit contrast exposure Await final Ucx results Neurology consult pending PT evaluation for functional assessment AM lab: BMP, CBC Convert to inpt status
[2019-06-03] MEDS: cefTRIAXone\\ROCEPHIN 1 GM in Sodium Chloride 0.9% 100 ML IVPB SCH (16:58)
[2019-06-03] MEDS ORDERED: Pravastatin Sodium 40 MG TAB PO SCH (21:00)
[2019-06-03] MEDS: Atorvastatin Calcium 10 MG TAB PO SCH (21:17)
--- NOTE | 2019-06-04 00:04 | CON ---
DATE OF CONSULTATION: 06/03/2019 IMPRESSION: Mr. Bright has been battling Parkinson's related delirium for the last few weeks. He was initially treated with Nuplazid, which controlled his delirium quite well. Unfortunately, he is overly sedated and was not functioning well otherwise. After discontinuing the dose, he began having hallucinations once again, subsequently brought to the hospital to be evaluated. He was found to have evidence of urinary tract infection. His temperature maximum has been 100 degrees. His blood pressures have been a bit elevated. His lab work was only notable for some mild renal insufficiency. He is still quite delirious. He is a bit restless and has mumbling speech. Going to start Seroquel tonight. Once he is discharged, we are going to switch him back over to a lower dose of Nuplazid. Job ID: [id number]
[2019-06-04] MEDS: Montelukast Sodium 10 mg Tablet PO SCH ×2 (11:30→14:26)
[2019-06-04] MEDS: Sodium Chloride 0.9% 1,000 ML IV SCH ×4 (11:30→23:41)
[2019-06-04] MEDS: Donepezil HCl 10 MG TAB PO SCH ×2 (11:30→14:26)
[2019-06-04] MEDS: FLUoxetine HCl 10 MG CAP PO SCH ×2 (11:30→14:26)
[2019-06-04] MEDS: Aspirin 81 mg Enteric Coated Tablet PO SCH ×2 (11:30→14:25)
[2019-06-04] MEDS: Metoprolol Tartrate 25 MG TAB PO SCH ×3 (11:30→20:56)
[2019-06-04] MEDS: Famotidine 20 MG TAB PO SCH ×2 (11:30→14:26)
[2019-06-04] MEDS: Carbidopa/Levodopa 25-100 mg Tablet PO SCH ×5 (11:30→23:39)
[2019-06-04] MEDS: Tamsulosin HCl 0.4 MG CAP PO SCH ×2 (11:30→14:26)
--- NOTE | 2019-06-04 16:36 | PDOC.HOSPP ---
- Subjective Encounter Date: 06/04/19 Encounter Time: 16:30 Subjective: f/u for AMS, UTI with Klebsiella spp on Rocephin. reports that is better overall today. - Objective Vital Signs & Weight: Vital Signs (12 hours) Temp Pulse Pulse Pulse Resp BP BP 06/04/19 15:40 97.5 F L 61 16 06/04/19 14:48 68 67 175/80 H 141/77 H BP Pulse Ox 06/04/19 15:40 138/79 95 06/04/19 14:48 Weight Admit Weight 215 lb 4.8 oz Weight 215 lb 4.8 oz I&O: 06/03/19 06/04/19 06/05/19 06:59 06:59 06:59 Intake Total 100 301 240 Output Total 100 50 Balance 0 251 240 Result Diagrams: 06/03/19 04:40 06/03/19 04:40 Additional Labs: Microbiology 06/02/19 12:16 Nasal swab Influenza Types A,B Direct EIA - Final 06/02/19 12:06 Urine Straight Catheter Urine Culture - Final Klebsiella pneumoniae ssp pneu 06/02/19 12:50 Venous blood - Right Hand Blood Culture - Preliminary Specimen has been received and culture in progress. No Growth to date. 06/02/19 12:50 Venous blood - Right Hand Blood Culture - Preliminary NO GROWTH AT 48 HOURS 06/02/19 12:50 Venous blood - Right Arm Blood Culture - Preliminary Specimen has been received and culture in progress. No Growth to date. 06/02/19 12:50 Venous blood - Right Arm Blood Culture - Preliminary NO GROWTH AT 48 HOURS 06/02/19 12:06 Urine Straight Catheter Urine Culture - Preliminary Gram Negative [facility] Tests 06/02/19 06/02/19 06/02/19 12:50 12:50 12:50 Hgb 13.3 L Neutrophils % 80.8 H Creatinine 1.72 H Lactic Acid 1.6 06/03/19 04:40 Hgb Neutrophils % 72.0 Creatinine Lactic Acid Radiology Reviewed by me: Yes (Echo - EF 50%, technically limited) EKG Reviewed by me: Yes (Tele - SR) Hospitalist ROS - Medication Medications: Active Medications Generic Name Dose Route Start Last Admin Trade Name Freq PRN Reason Stop Dose Admin Aspirin 81 mg 06/03/19 09:00 06/04/19 14:25 Ecotrin PO Not Given DAILY MARY Atorvastatin Calcium 10 mg 06/03/19 21:00 06/03/19 21:17 Lipitor PO 10 mg HS [facility] Administration Carbidopa/Levodopa 1 tab 06/03/19 09:00 06/04/19 15:35 Sinemet 25-100 PO 1 tab QID MARY Administration Donepezil HCl 10 mg 06/03/19 09:00 06/04/19 14:26 Aricept PO Not Given DAILY [facility] Famotidine 20 mg 06/03/19 09:00 06/04/19 14:26 Pepcid PO Not Given DAILY MARY Fluoxetine HCl 10 mg 06/03/19 09:00 06/04/19 14:26 Prozac PO Not Given DAILY [facility] Sodium Chloride 1,000 mls @ 75 mls/hr 06/02/19 15:30 06/04/19 14:25 Normal Saline 0.9% IV Not Given .[id number] [facility] Ceftriaxone Sodium 1 gm/ 100 mls @ 200 mls/hr 06/03/19 16:00 06/03/19 16:58 Sodium Chloride IVPB 100 mls 1600 [facility] Administration Metoprolol Tartrate 12.5 mg 06/03/19 09:00 06/04/19 14:26 Lopressor PO Not Given BID [facility] Montelukast Sodium 10 mg 06/03/19 09:00 06/04/19 14:26 Singulair PO Not Given DAILY [facility] Quetiapine Fumarate 50 mg 06/03/19 21:00 06/03/19 21:17 Seroquel PO 50 mg HS [facility] Administration Tamsulosin HCl 0.4 mg 06/03/19 09:00 06/04/19 14:26 Flomax PO Not Given DAILY [facility] - Exam General Appearance: awake alert Eye: PERRL, anicteric sclera ENT: normocephalic atraumatic, no oropharyngeal lesions Neck: supple, symmetric, no JVD, no thyromegaly Heart: RRR, no murmur, no gallops, no rubs, normal peripheral pulses Respiratory: CTAB, no wheezes, no rales, no ronchi Gastrointestinal: soft, non-tender, non-distended, normal bowel sounds Extremities: no cyanosis, no clubbing Skin: normal turgor, no lesions Neurological: cranial nerve grossly intact Neurological - other findings: resting tremors Musculoskeletal: normal tone, generalized weakness Musculoskeletal - other findings: general resting tremors Psychiatric: oriented to person, flat affect Hosp A/P (1) UTI (urinary tract infection) Status: Acute Plan: Klebsiella spp, continue Rocephin 1gm IV daily, continue low-volume IVF's (2) Acute metabolic encephalopathy Code(s): G93.41 - METABOLIC ENCEPHALOPATHY Status: Acute Plan: Improved, continue treatment for underlying UTI (3) Acute worsening of stage 3 chronic kidney disease Code(s): N18.3 - CHRONIC KIDNEY DISEASE, STAGE 3 (MODERATE) Status: Acute Plan: Improved, continue IVF's, avoid nephrotoxic meds and limit contrast exposure (4) Parkinson disease Code(s): G20 - PARKINSON'S DISEASE Status: Chronic Plan: Continue Sinemet, Seroquel HS - Plan plan discussed w/ family, continue antibiotics, PT/OT, social services analyst, out of bed/ambulate, DVT proph w/SCDs Stable currently Continue Rocephin 1gm IV daily Continue low-volume IVF's Avoid nephrotoxic agents and limit contrast exposure Neurology consult appreciated PT evaluation for functional assessment AM lab: BMP
[2019-06-04] MEDS: cefTRIAXone\\ROCEPHIN 1 GM in Sodium Chloride 0.9% 100 ML IVPB SCH (16:49)
[2019-06-04 17:43] LABS: Anion Gap 8 mmol/L (10-20); BUN (Urea Nitrogen) 14 mg/dL (8.4-25.7); Calc. Creatinine Clearance 65 mL/min (70-130); Calcium 9.2 mg/dL (7.8-10.44); Carbon Dioxide 28 mmol/L (23-31); Chloride 106 mmol/L (98-107); Estimated GFR-MDRD 50; Glucose 102 mg/dL (83-110); Sodium 138 mmol/L (136-145)
[2019-06-04 19:27] LABS: Hemoglobin 11.5 g/dL (14.0-18.0); Red Blood Cell (RBC) Count 3.67 mill/uL (4.70-6.10); White Blood Cell (WBC) Count 6.1 thou/uL (4.8-10.8)
[2019-06-04 19:28] LABS: Eosinophils 12 % (0-10); Lymphocytes 23 % (21-51); MDiff Complete? YES; Mean Corpuscular HGB CONC 33.3 g/dL (32.0-36.0); Mean Corpuscular Hemoglobin 31.4 pg (27.0-31.0); Mean Corpuscular Volume 94.4 fL (78.0-98.0); Mean Platelet Volume 8.4 fL (7.4-10.4); Monocytes 8 % (0-10); Platelet Count 159 thou/uL (130-400); RBC Distribution Width 12.4 % (11.5-14.5)
[2019-06-04 19:29] LABS: Neutrophil 57 % (42-75)
[2019-06-04] MEDS: Atorvastatin Calcium 10 MG TAB PO SCH (20:57)
[2019-06-05] MEDS: Tamsulosin HCl 0.4 MG CAP PO SCH (09:26)
[2019-06-05] MEDS: Carbidopa/Levodopa 25-100 mg Tablet PO SCH ×4 (09:26→20:55)
[2019-06-05] MEDS: FLUoxetine HCl 10 MG CAP PO SCH (09:26)
[2019-06-05] MEDS: Famotidine 20 MG TAB PO SCH (09:26)
[2019-06-05] MEDS: Montelukast Sodium 10 mg Tablet PO SCH (09:26)
[2019-06-05] MEDS: Donepezil HCl 10 MG TAB PO SCH (09:26)
[2019-06-05] MEDS: Metoprolol Tartrate 25 MG TAB PO SCH ×2 (09:26→21:02)
[2019-06-05] MEDS: Aspirin 81 mg Enteric Coated Tablet PO SCH (09:26)
[2019-06-05] MEDS: Sodium Chloride 0.9% 1,000 ML IV SCH (12:45)
[2019-06-05] MEDS: Acetaminophen 325 MG TAB PO PRN (15:07)
[2019-06-05] MEDS: cefTRIAXone\\ROCEPHIN 1 GM in Sodium Chloride 0.9% 100 ML IVPB SCH (15:08)
--- NOTE | 2019-06-05 15:53 | PDOC.HOSPP ---
- Subjective Encounter Date: 06/05/19 Encounter Time: 15:45 Subjective: f/u for UTI with Klebsiella spp on Rocephin. Feels better overall with intermittent confusion. - Objective Vital Signs & Weight: Vital Signs (12 hours) Temp Pulse Pulse Resp BP BP Pulse Ox 06/05/19 14:28 61 152/90 H 06/05/19 12:05 97.6 F 59 L 20 146/76 H 97 06/05/19 07:40 98 06/05/19 07:30 97.4 F L 60 20 162/86 H 98 06/05/19 03:59 97.9 F 60 16 94 L Weight Admit Weight 215 lb 4.8 oz Weight 215 lb 4.8 oz I&O: 06/04/19 06/05/19 06/06/19 06:59 06:59 06:59 Intake Total 301 823 600 Output Total 50 Balance 251 823 600 Result Diagrams: 06/04/19 03:30 06/04/19 03:30 Additional Labs: Microbiology 06/02/19 12:16 Nasal swab Influenza Types A,B Direct EIA - Final 06/02/19 12:06 Urine Straight Catheter Urine Culture - Final Klebsiella pneumoniae ssp pneu 06/02/19 12:50 Venous blood - Right Hand Blood Culture - Preliminary Specimen has been received and culture in progress. No Growth to date. 06/02/19 12:50 Venous blood - Right Hand Blood Culture - Preliminary NO GROWTH AT 48 HOURS 06/02/19 12:50 Venous blood - Right Arm Blood Culture - Preliminary Specimen has been received and culture in progress. No Growth to date. 06/02/19 12:50 Venous blood - Right Arm Blood Culture - Preliminary NO GROWTH AT 48 HOURS 06/02/19 12:06 Urine Straight Catheter Urine Culture - Preliminary Gram Negative [facility] Tests 06/02/19 06/02/19 06/02/19 12:50 12:50 12:50 Hgb 13.3 L Neutrophils % 80.8 H Creatinine 1.72 H Lactic Acid 1.6 06/03/19 04:40 Hgb Neutrophils % 72.0 Creatinine Lactic Acid EKG Reviewed by me: Yes (Tele - SR) Hospitalist ROS - Medication Medications: Active Medications Generic Name Dose Route Start Last Admin Trade Name Freq PRN Reason Stop Dose Admin Acetaminophen 650 mg 06/02/19 15:16 06/05/19 15:07 Tylenol PO 650 mg Q4H PRN Administration Headache/Fever/Mild Pain (1-3) Aspirin 81 mg 06/03/19 09:00 06/05/19 09:26 Ecotrin PO 81 mg DAILY MARY Administration Atorvastatin Calcium 10 mg 06/03/19 21:00 06/04/19 20:57 Lipitor PO 10 mg HS MARY Administration Carbidopa/Levodopa 1 tab 06/03/19 09:00 06/05/19 12:45 Sinemet 25-100 PO 1 tab QID MARY Administration Donepezil HCl 10 mg 06/03/19 09:00 06/05/19 09:26 Aricept PO 10 mg DAILY MARY Administration Famotidine 20 mg 06/03/19 09:00 06/05/19 09:26 Pepcid PO 20 mg DAILY MARY Administration Fluoxetine HCl 10 mg 06/03/19 09:00 06/05/19 09:26 Prozac PO 10 mg DAILY MARY Administration Sodium Chloride 1,000 mls @ 75 mls/hr 06/02/19 15:30 06/05/19 12:45 Normal Saline 0.9% IV 1,000 mls .[id number] MARY Administration Ceftriaxone Sodium 1 gm/ 100 mls @ 200 mls/hr 06/03/19 16:00 06/05/19 15:08 Sodium Chloride IVPB 100 mls 1600 MARY Administration Metoprolol Tartrate 12.5 mg 06/03/19 09:00 06/05/19 09:26 Lopressor PO 12.5 mg BID MARY Administration Montelukast Sodium 10 mg 06/03/19 09:00 06/05/19 09:26 Singulair PO 10 mg DAILY MARY Administration Quetiapine Fumarate 50 mg 06/03/19 21:00 06/04/19 21:01 Seroquel PO 50 mg HS MARY Administration Tamsulosin HCl 0.4 mg 06/03/19 09:00 06/05/19 09:26 Flomax PO 0.4 mg DAILY MARY Administration - Exam General Appearance: NAD, awake alert Eye: PERRL, anicteric sclera ENT: normocephalic atraumatic, no oropharyngeal lesions Neck: supple, symmetric, no JVD, no thyromegaly Heart: RRR, no gallops, no rubs, normal peripheral pulses Respiratory: CTAB, no wheezes, no rales, no ronchi Gastrointestinal: soft, non-tender, non-distended, normal bowel sounds Extremities: no cyanosis, no clubbing, no edema Skin: normal turgor, no lesions Neurological: cranial nerve grossly intact, no new deficit Neurological - other findings: minimal tremor Musculoskeletal: normal tone, generalized weakness Psychiatric: oriented to person Hosp A/P (1) UTI (urinary tract infection) Status: Acute Plan: Continue Rocephin another 24h then convert to po abx (2) Acute metabolic encephalopathy Code(s): G93.41 - METABOLIC ENCEPHALOPATHY Status: Acute Plan: Improved, continue supportive mgmt and tx underlying UTI (3) Acute worsening of stage 3 chronic kidney disease Code(s): N18.3 - CHRONIC KIDNEY DISEASE, STAGE 3 (MODERATE) Status: Acute Plan: Improved, continue low-volume IVF's, avoid nephrotoxic meds and limit contrast exposure (4) Parkinson disease Code(s): G20 - PARKINSON'S DISEASE Status: Chronic Plan: Continue Sinemet - Plan plan discussed w/ family, continue antibiotics, PT/OT, public health social worker, speech therapy, out of bed/ambulate, DVT proph w/SCDs Stable currently Continue Rocephin 1gm IV daily another 24h then convert to po abx Continue low-volume IVF's Avoid nephrotoxic agents and limit contrast exposure Neurology consult appreciated PT evaluation for functional assessment AM lab: BMP CM for SNF/Rehab options
[2019-06-05] MEDS: Atorvastatin Calcium 10 MG TAB PO SCH (20:56)
[2019-06-06] MEDS: Sodium Chloride 0.9% 1,000 ML IV SCH (00:24)
[2019-06-06] MEDS: Metoprolol Tartrate 25 MG TAB PO SCH ×2 (09:29→22:24)
[2019-06-06] MEDS: Montelukast Sodium 10 mg Tablet PO SCH (09:30)
[2019-06-06] MEDS: Tamsulosin HCl 0.4 MG CAP PO SCH (09:30)
[2019-06-06] MEDS: Famotidine 20 MG TAB PO SCH (09:30)
[2019-06-06] MEDS: Carbidopa/Levodopa 25-100 mg Tablet PO SCH ×4 (09:31→22:24)
[2019-06-06] MEDS: Aspirin 81 mg Enteric Coated Tablet PO SCH (09:31)
[2019-06-06] MEDS: FLUoxetine HCl 10 MG CAP PO SCH (09:31)
[2019-06-06] MEDS: Donepezil HCl 10 MG TAB PO SCH (09:31)
--- NOTE | 2019-06-06 11:19 | PDOC.HOSPP ---
- Subjective Encounter Date: 06/06/19 Encounter Time: 11:00 Subjective: f/u for AMS, UTI with Klebsiella spp on Rocephin. More groggy, confused this am than previously. - Objective Vital Signs & Weight: Vital Signs (12 hours) Temp Pulse Resp BP Pulse Ox 06/06/19 07:44 98.1 F 67 18 94 L 06/06/19 07:20 148/90 H 94 L 06/06/19 03:34 97.7 F 60 18 156/84 H 98 06/05/19 23:43 97.4 F L 58 L 18 150/82 H 97 Weight Admit Weight 215 lb 4.8 oz Weight 215 lb 4.8 oz I&O: 06/05/19 06/06/19 06/07/19 06:59 06:59 06:59 Intake Total 823 2150 Balance 823 2150 Result Diagrams: 06/04/19 03:30 06/04/19 03:30 Additional Labs: Microbiology 06/02/19 12:16 Nasal swab Influenza Types A,B Direct EIA - Final 06/02/19 12:06 Urine Straight Catheter Urine Culture - Final Klebsiella pneumoniae ssp pneu 06/02/19 12:50 Venous blood - Right Hand Blood Culture - Preliminary Specimen has been received and culture in progress. No Growth to date. 06/02/19 12:50 Venous blood - Right Hand Blood Culture - Preliminary NO GROWTH AT 48 HOURS 06/02/19 12:50 Venous blood - Right Arm Blood Culture - Preliminary Specimen has been received and culture in progress. No Growth to date. 06/02/19 12:50 Venous blood - Right Arm Blood Culture - Preliminary NO GROWTH AT 48 HOURS 06/02/19 12:06 Urine Straight Catheter Urine Culture - Preliminary Gram Negative [facility] Tests 06/02/19 06/02/19 06/02/19 12:50 12:50 12:50 Hgb 13.3 L Neutrophils % 80.8 H Creatinine 1.72 H Lactic Acid 1.6 06/03/19 04:40 Hgb Neutrophils % 72.0 Creatinine Lactic Acid EKG Reviewed by me: Yes (Tele - SR) Hospitalist ROS - Medication Medications: Active Medications Generic Name Dose Route Start Last Admin Trade Name Freq PRN Reason Stop Dose Admin Acetaminophen 650 mg 06/02/19 15:16 06/05/19 15:07 Tylenol PO 650 mg Q4H PRN Administration Headache/Fever/Mild Pain (1-3) Aspirin 81 mg 06/03/19 09:00 06/06/19 09:31 Ecotrin PO 81 mg DAILY MARY Administration Atorvastatin Calcium 10 mg 06/03/19 21:00 06/05/19 20:56 Lipitor PO 10 mg HS MARY Administration Carbidopa/Levodopa 1 tab 06/03/19 09:00 06/06/19 09:31 Sinemet 25-100 PO 1 tab QID MARY Administration Donepezil HCl 10 mg 06/03/19 09:00 06/06/19 09:31 Aricept PO 10 mg DAILY MARY Administration Famotidine 20 mg 06/03/19 09:00 06/06/19 09:30 Pepcid PO 20 mg DAILY MARY Administration Fluoxetine HCl 10 mg 06/03/19 09:00 06/06/19 09:31 Prozac PO 10 mg DAILY MARY Administration Metoprolol Tartrate 12.5 mg 06/03/19 09:00 06/06/19 09:29 Lopressor PO 12.5 mg BID AMRY Administration Montelukast Sodium 10 mg 06/03/19 09:00 06/06/19 09:30 Singulair PO 10 mg DAILY MARY Administration Quetiapine Fumarate 50 mg 06/03/19 21:00 06/05/19 20:56 Seroquel PO 50 mg HS MARY Administration Tamsulosin HCl 0.4 mg 06/03/19 09:00 06/06/19 09:30 Flomax PO 0.4 mg DAILY MARY Administration - Exam General - other findings: confused, lethargic, opens eyes to name Eye: PERRL, anicteric sclera ENT: normocephalic atraumatic, no oropharyngeal lesions Neck: supple, symmetric, no JVD, no thyromegaly Heart: RRR, no murmur, no gallops, no rubs, normal peripheral pulses Respiratory: CTAB, no wheezes, no rales, no ronchi Gastrointestinal: soft, non-tender, non-distended, normal bowel sounds, no palpable masses Extremities: no cyanosis, no clubbing, no edema Skin: normal turgor, no lesions Neurological: no new deficit Neurological - other findings: tremors noted Musculoskeletal: normal tone, generalized weakness Psychiatric: oriented to person Hosp A/P (1) UTI (urinary tract infection) Status: Acute Plan: D/C Rocephin, start Levaquin po today (2) Acute metabolic encephalopathy Code(s): G93.41 - METABOLIC ENCEPHALOPATHY Status: Acute Plan: Variable encephalopathy, likely multifactorial, re-orientation techniques (3) Acute worsening of stage 3 chronic kidney disease Code(s): N18.3 - CHRONIC KIDNEY DISEASE, STAGE 3 (MODERATE) Status: Acute Plan: Improved, continue monitoring, avoid nephrotoxic meds (4) Parkinson disease Code(s): G20 - PARKINSON'S DISEASE Status: Chronic Plan: Advanced, continue Sinemet, Nuplazid pending - Plan plan discussed w/ family, continue antibiotics, PT/OT, psychologist social, speech therapy, out of bed/ambulate, DVT proph w/SCDs Stable currently D/c Rocephin, start Levaquin 750mg po daily Saline lock IVF's Avoid nephrotoxic agents and limit contrast exposure Neurology consult appreciated PT evaluation for functional assessment CM for SNF/Rehab options
--- NOTE | 2019-06-06 15:02 | PQF ---
CLINICAL DOCUMENTATION IMPROVEMENT CLARIFICATION FORM: ICD-10 Updated PLEASE DO AN ADDENDUM TO THE PROGRESS NOTE WITH ANY DOCUMENTATION UPDATES OR ADDITIONS AND CARRY THROUGH TO DC SUMMARY. THANK YOU. DATE: 06/06/2019 ATTN: Dr. Panchal Please exercise your independent, professional judgment in responding to the clarification form. Clinical indicators are provided on the bottom of this form for your review Please check appropriate box(s): [ ] Acute Renal Failure (ARF) / Acute Kidney Injury (REBECCA) [ x ] Acute on Chronic Renal Failure please specify Stage of CKD _3___(see below) [ ] CKD without ARF/REBECCA please specify Stage of CKD [ ] Other diagnosis [ ] Unable to determine In addition, please specify: Present on Admission (POA): [ x ] Yes [ ] No [ ] Unable to determine For continuity of documentation, please document condition throughout progress notes and discharge summary. Thank You. CLINICAL INDICATORS - SIGNS / SYMPTOMS / LABS / RESULTS AND LOCATION IN MR H&P 06/02: Lab work showed creatinine at 1.72, which is greater than his baseline Acute on chronic kidney disease with urinary tract infection. 06/02 06/03 06/04 LABS Creatinine 1.72 1.55 1.38 Estimated GFR 39 44 50 PN 06/06: Acute worsening of stage 3 chronic kidney disease. Improved, continue monitoring, avoid nephrotoxic meds RISKS: H&P 06/02: PMH: hypertension, CAD, Parkinson's ASSESSMENT AND PLAN: Acute on chronic kidney disease with urinary tract infection. TREATMENT: Order 06/02-06/06: Normal Saline IV 75 mls/hr Order for CMP 06/02, 06/03 BMP 06/04 National [employer] Guidelines for CKD Staging Stage I Kidney damage with normal or increased GFR GFR > 90 Stage II Kidney damage with mildly decreased GFR GFR 60-89 Stage III Kidney damage with moderately decreased GFR GFR 30-59 Stage IV Kidney damage with severely decreased GFR GFR 16-29 Stage V Kidney failure GFR<15 ESRDEnd Stage Renal Disease On dialysis Acute Renal Failure/Acute Kidney Failure defined as: Increases in SCr by (>) 0.3 mg/dl within 48 hours OR- Increases in SCr by (>) 1.5 times baseline, known or presumed to have occurred within the prior 7 days OR- Urine volume < 0.5 ml/kg/hour for 6 hours (KDIGO supplement 2012 for RIFLE/JONATAN criteria) Thank you, Marcie (This form is maintained as a part of the permanent medical record) 2014 [employer] All Rights Reserved Marcie Webster RN, [email or web address] [email or web address] Office: [phone] [facility]ITAL[facility]
[2019-06-06] MEDS: Atorvastatin Calcium 10 MG TAB PO SCH (22:22)
[2019-06-07] MEDS: Montelukast Sodium 10 mg Tablet PO SCH (09:12)
[2019-06-07] MEDS: Aspirin 81 mg Enteric Coated Tablet PO SCH (09:12)
[2019-06-07] MEDS: Tamsulosin HCl 0.4 MG CAP PO SCH (09:12)
[2019-06-07] MEDS: Metoprolol Tartrate 25 MG TAB PO SCH ×2 (09:12→21:01)
[2019-06-07] MEDS: Famotidine 20 MG TAB PO SCH (09:12)
[2019-06-07] MEDS: FLUoxetine HCl 10 MG CAP PO SCH (09:12)
[2019-06-07] MEDS: Donepezil HCl 10 MG TAB PO SCH (09:12)
[2019-06-07] MEDS: Carbidopa/Levodopa 25-100 mg Tablet PO SCH ×4 (09:12→21:01)
--- NOTE | 2019-06-07 12:22 | PDOC.HOSPP ---
- Subjective Encounter Date: 06/07/19 Encounter Time: 10:00 Subjective: no sob or pain not fully oriented but responds to verbal stimuli at bedside - Objective Vital Signs & Weight: Vital Signs (12 hours) Temp Pulse Resp BP BP Pulse Ox 06/07/19 11:46 98.9 F 72 20 98 06/07/19 07:35 97 06/07/19 07:32 166/92 H 06/07/19 07:18 98 F 76 20 97 06/07/19 03:00 98.2 F 65 18 150/82 H Weight Admit Weight 215 lb 4.8 oz Weight 215 lb 4.8 oz I&O: 06/06/19 06/07/19 06/08/19 06:59 06:59 06:59 Intake Total 2150 Balance 2150 Result Diagrams: 06/04/19 03:30 06/04/19 03:30 Hospitalist ROS - Medication Medications: Active Medications Generic Name Dose Route Start Last Admin Trade Name Freq PRN Reason Stop Dose Admin Acetaminophen 650 mg 06/02/19 15:16 06/05/19 15:07 Tylenol PO 650 mg Q4H PRN Administration Headache/Fever/Mild Pain (1-3) Aspirin 81 mg 06/03/19 09:00 06/07/19 09:12 Ecotrin PO 81 mg DAILY MARY Administration Atorvastatin Calcium 10 mg 06/03/19 21:00 06/06/19 22:22 Lipitor PO 10 mg HS MARY Administration Carbidopa/Levodopa 1 tab 06/03/19 09:00 06/07/19 09:12 Sinemet 25-100 PO 1 tab QID MARY Administration Donepezil HCl 10 mg 06/03/19 09:00 06/07/19 09:12 Aricept PO 10 mg DAILY MARY Administration Famotidine 20 mg 06/03/19 09:00 06/07/19 09:12 Pepcid PO 20 mg DAILY MARY Administration Fluoxetine HCl 10 mg 06/03/19 09:00 06/07/19 09:12 Prozac PO 10 mg DAILY MARY Administration Levofloxacin 750 mg 06/06/19 14:00 06/06/19 14:25 Levaquin PO 750 mg 1400 MARY Administration Metoprolol Tartrate 12.5 mg 06/03/19 09:00 06/07/19 09:12 Lopressor PO 12.5 mg BID MARY Administration Montelukast Sodium 10 mg 06/03/19 09:00 06/07/19 09:12 Singulair PO 10 mg DAILY MARY Administration Quetiapine Fumarate 50 mg 06/06/19 21:00 06/06/19 22:22 Seroquel PO 50 mg HS MARY Administration Tamsulosin HCl 0.4 mg 06/03/19 09:00 06/07/19 09:12 Flomax PO 0.4 mg DAILY MARY Administration - Exam General Appearance: NAD, awake alert Eye: PERRL, anicteric sclera ENT: no oropharyngeal lesions, moist mucosa Neck: supple, no JVD Heart: RRR, no murmur Respiratory: no wheezes, no rales Gastrointestinal: soft, non-tender, non-distended, normal bowel sounds Extremities: no cyanosis, no edema Neurological: cranial nerve grossly intact, no focal deficits Psychiatric: normal affect, A&O x 3 Hosp A/P (1) Acute metabolic encephalopathy Code(s): G93.41 - METABOLIC ENCEPHALOPATHY Status: Acute (2) Physical deconditioning Code(s): R53.81 - OTHER MALAISE Status: Acute (3) Acute worsening of stage 3 chronic kidney disease Code(s): N18.3 - CHRONIC KIDNEY DISEASE, STAGE 3 (MODERATE) Status: Acute (4) UTI (urinary tract infection) Status: Acute Qualifiers: Urinary tract infection type: acute cystitis Hematuria presence: without hematuria Qualified Code(s): N30.00 - Acute cystitis without hematuria (5) Anxiety and depression Code(s): F41.9 - ANXIETY DISORDER, UNSPECIFIED; F32.9 - MAJOR DEPRESSIVE DISORDER, SINGLE EPISODE, UNSPECIFIED Status: Chronic (6) Asthma Code(s): J45.909 - UNSPECIFIED ASTHMA, UNCOMPLICATED Status: Chronic Qualifiers: Asthma severity: mild Asthma persistence: intermittent (7) BPH (benign prostatic hyperplasia) Code(s): N40.0 - BENIGN PROSTATIC HYPERPLASIA WITHOUT LOWER URINRY TRACT SYMP Status: Chronic Qualifiers: Lower urinary tract symptom detail: unspecified (8) CAD (coronary artery disease) Code(s): I25.10 - ATHSCL HEART DISEASE OF [place] CORONARY ARTERY W/O ANG PCTRS Status: Chronic Qualifiers: Coronary Disease-Associated Artery/Lesion type: bypass graft [place] vs. transplanted heart: [place] heart Associated angina: without angina Qualified Code(s): I25.810 - Atherosclerosis of coronary artery bypass graft(s) without angina pectoris (9) Diabetes type 2, controlled Code(s): E11.9 - TYPE 2 DIABETES MELLITUS WITHOUT COMPLICATIONS Status: Chronic Qualifiers: Diabetes mellitus chcf insulin use: without wrapper dipper use Diabetes mellitus complication detail: with chronic kidney disease Chronic kidney disease stage: stage 3 (moderate) (10) Dyslipidemia Code(s): E78.5 - HYPERLIPIDEMIA, UNSPECIFIED Status: Chronic (11) Hypertension Code(s): I10 - ESSENTIAL (PRIMARY) HYPERTENSION Status: Chronic Qualifiers: Hypertension type: essential hypertension Qualified Code(s): I10 - Essential (primary) hypertension (12) CHICO (obstructive sleep apnea) Code(s): G47.33 - OBSTRUCTIVE SLEEP APNEA (ADULT) (PEDIATRIC) Status: Chronic (13) Parkinson disease Code(s): G20 - PARKINSON'S DISEASE Status: Chronic - Plan has deconditioning, will need rehab prior to home d/w patient and at bedside continue levaquin, asp, lipitor, levodopa, aricept, prozac, lopressor, seroquel , flomax to mobilize with PT as tolerated hemostable is eating well per at bedside
[2019-06-07] MEDS: Atorvastatin Calcium 10 MG TAB PO SCH (21:00)
[2019-06-08 04:55] LABS: #Basophils 0.1 thou/uL (0.0-0.2); #Eosinphils 0.4 thou/uL (0.0-0.7); #Lymphocytes 1.3 thou/uL (1.20-3.40); #Monocytes 0.7 thou/uL (0.11-0.59); #Neutrophils 5.5 thou/uL (1.40-6.50); %Basophils 0.9 % (0.0-1.0); %Eosinophils 5.3 % (0.0-10.0); %Lymphocytes 15.8 % (21.0-51.0); %Monocytes 8.9 % (0.0-10.0); %Neutrophils 69.1 % (42.0-75.0); Hemoglobin 13.1 g/dL (14.0-18.0); Mean Corpuscular HGB CONC 34.7 g/dL (32.0-36.0); Mean Corpuscular Hemoglobin 31.6 pg (27.0-31.0); Mean Corpuscular Volume 91.2 fL (78.0-98.0); Mean Platelet Volume 7.6 fL (7.4-10.4); Platelet Count 176 thou/uL (130-400); RBC Distribution Width 12.3 % (11.5-14.5); Red Blood Cell (RBC) Count 4.16 mill/uL (4.70-6.10)
[2019-06-08 05:17] LABS: Anion Gap 13 mmol/L (10-20); BUN (Urea Nitrogen) 11 mg/dL (8.4-25.7); Calc. Creatinine Clearance 57 mL/min (70-130); Calcium 9.6 mg/dL (7.8-10.44); Carbon Dioxide 25 mmol/L (23-31); Chloride 103 mmol/L (98-107); Estimated GFR-MDRD 44; Glucose 135 mg/dL (83-110); Potassium 3.9 mmol/L (3.5-5.1); Sodium 137 mmol/L (136-145)
--- NOTE | 2019-06-08 10:46 | PDOC.HOSPP ---
- Subjective Encounter Date: 06/08/19 Encounter Time: 09:00 Subjective: awake, responds well to verbal stimuli, not fully oriented at bedside - Objective Vital Signs & Weight: Vital Signs (12 hours) Temp Pulse Resp BP Pulse Ox 06/08/19 08:15 162/100 H 96 06/08/19 07:43 99.2 F 85 16 96 06/08/19 04:00 98.4 F 80 16 97 06/08/19 00:00 97.9 F 76 16 96 Weight Admit Weight 215 lb 4.8 oz Weight 215 lb 4.8 oz Result Diagrams: 06/08/19 04:27 06/08/19 04:27 Hospitalist ROS - Medication Medications: Active Medications Generic Name Dose Route Start Last Admin Trade Name Freq PRN Reason Stop Dose Admin Acetaminophen 650 mg 06/02/19 15:16 06/05/19 15:07 Tylenol PO 650 mg Q4H PRN Administration Headache/Fever/Mild Pain (1-3) Aspirin 81 mg 06/03/19 09:00 06/07/19 09:12 Ecotrin PO 81 mg DAILY MARY Administration Atorvastatin Calcium 10 mg 06/03/19 21:00 06/07/19 21:00 Lipitor PO 10 mg HS MARY Administration Carbidopa/Levodopa 1 tab 06/03/19 09:00 06/07/19 21:01 Sinemet 25-100 PO 1 tab QID MARY Administration Donepezil HCl 10 mg 06/03/19 09:00 06/07/19 09:12 Aricept PO 10 mg DAILY MARY Administration Famotidine 20 mg 06/03/19 09:00 06/07/19 09:12 Pepcid PO 20 mg DAILY MARY Administration Fluoxetine HCl 10 mg 06/03/19 09:00 06/07/19 09:12 Prozac PO 10 mg DAILY MARY Administration Levofloxacin 750 mg 06/06/19 14:00 06/07/19 12:52 Levaquin PO 750 mg 1400 MARY Administration Metoprolol Tartrate 12.5 mg 06/03/19 09:00 06/07/19 21:01 Lopressor PO 12.5 mg BID MARY Administration Montelukast Sodium 10 mg 06/03/19 09:00 06/07/19 09:12 Singulair PO 10 mg DAILY MARY Administration Quetiapine Fumarate 50 mg 06/06/19 21:00 06/07/19 21:00 Seroquel PO 50 mg HS MARY Administration Tamsulosin HCl 0.4 mg 06/03/19 09:00 06/07/19 09:12 Flomax PO 0.4 mg DAILY MARY Administration - Exam General Appearance: awake alert Eye: PERRL, anicteric sclera ENT: no oropharyngeal lesions, dry oral mucosa Neck: supple, no JVD Heart: RRR, no murmur Respiratory: no wheezes, no rales Gastrointestinal: soft, non-tender, non-distended, normal bowel sounds Extremities: no cyanosis, no clubbing Neurological: cranial nerve grossly intact, no focal deficits Hosp A/P (1) Acute metabolic encephalopathy Code(s): G93.41 - METABOLIC ENCEPHALOPATHY Status: Acute (2) Physical deconditioning Code(s): R53.81 - OTHER MALAISE Status: Acute (3) Acute worsening of stage 3 chronic kidney disease Code(s): N18.3 - CHRONIC KIDNEY DISEASE, STAGE 3 (MODERATE) Status: Acute (4) UTI (urinary tract infection) Status: Acute Qualifiers: Urinary tract infection type: acute cystitis Hematuria presence: without hematuria Qualified Code(s): N30.00 - Acute cystitis without hematuria (5) Anxiety and depression Code(s): F41.9 - ANXIETY DISORDER, UNSPECIFIED; F32.9 - MAJOR DEPRESSIVE DISORDER, SINGLE EPISODE, UNSPECIFIED Status: Chronic (6) Asthma Code(s): J45.909 - UNSPECIFIED ASTHMA, UNCOMPLICATED Status: Chronic Qualifiers: Asthma severity: mild Asthma persistence: intermittent (7) BPH (benign prostatic hyperplasia) Code(s): N40.0 - BENIGN PROSTATIC HYPERPLASIA WITHOUT LOWER URINRY TRACT SYMP Status: Chronic Qualifiers: Lower urinary tract symptom detail: unspecified (8) CAD (coronary artery disease) Code(s): I25.10 - ATHSCL HEART DISEASE OF [place] CORONARY ARTERY W/O ANG PCTRS Status: Chronic Qualifiers: Coronary Disease-Associated Artery/Lesion type: bypass graft [place] vs. transplanted heart: [place] heart Associated angina: without angina Qualified Code(s): I25.810 - Atherosclerosis of coronary artery bypass graft(s) without angina pectoris (9) Diabetes type 2, controlled Code(s): E11.9 - TYPE 2 DIABETES MELLITUS WITHOUT COMPLICATIONS Status: Chronic Qualifiers: Diabetes mellitus oysterman insulin use: without oysterman use Diabetes mellitus complication detail: with chronic kidney disease Chronic kidney disease stage: stage 3 (moderate) (10) Dyslipidemia Code(s): E78.5 - HYPERLIPIDEMIA, UNSPECIFIED Status: Chronic (11) Hypertension Code(s): I10 - ESSENTIAL (PRIMARY) HYPERTENSION Status: Chronic Qualifiers: Hypertension type: essential hypertension Qualified Code(s): I10 - Essential (primary) hypertension (12) CHICO (obstructive sleep apnea) Code(s): G47.33 - OBSTRUCTIVE SLEEP APNEA (ADULT) (PEDIATRIC) Status: Chronic (13) Parkinson disease Code(s): G20 - PARKINSON'S DISEASE Status: Chronic - Plan has deconditioning, will need swing/snf prior to home, rehab has denied d/w patient and at bedside continue levaquin, asp, lipitor, levodopa, aricept, prozac, lopressor, seroquel , flomax to mobilize with PT as tolerated hemostable plan is to start pimavanserin at 10mg when gets the meds by mail not sure if he be ready for travel on sunday by air/land towards [facility]/ [facility] to med floor
[2019-06-08] MEDS: Montelukast Sodium 10 mg Tablet PO SCH (10:54)
[2019-06-08] MEDS: FLUoxetine HCl 10 MG CAP PO SCH (10:54)
[2019-06-08] MEDS: Carbidopa/Levodopa 25-100 mg Tablet PO SCH ×4 (10:54→20:48)
[2019-06-08] MEDS: Donepezil HCl 10 MG TAB PO SCH (10:54)
[2019-06-08] MEDS: Tamsulosin HCl 0.4 MG CAP PO SCH (10:54)
[2019-06-08] MEDS: Famotidine 20 MG TAB PO SCH (10:54)
[2019-06-08] MEDS: Aspirin 81 mg Enteric Coated Tablet PO SCH (10:54)
[2019-06-08] MEDS: Metoprolol Tartrate 25 MG TAB PO SCH ×2 (10:54→20:48)
[2019-06-08] MEDS ORDERED: Carbidopa/Levodopa 25-100 mg Tablet PO SCH (15:00)
[2019-06-08] MEDS: Atorvastatin Calcium 10 MG TAB PO SCH (20:49)
[2019-06-09] MEDS: Enoxaparin Sodium 40 MG/0.4 ML SYRINGE SC SCH (09:05)
[2019-06-09] MEDS: Aspirin 81 mg Enteric Coated Tablet PO SCH (09:05)
[2019-06-09] MEDS: Tamsulosin HCl 0.4 MG CAP PO SCH (09:05)
[2019-06-09] MEDS: Donepezil HCl 10 MG TAB PO SCH (09:05)
[2019-06-09] MEDS: Metoprolol Tartrate 25 MG TAB PO SCH ×2 (09:05→20:23)
[2019-06-09] MEDS: Famotidine 20 MG TAB PO SCH (09:05)
[2019-06-09] MEDS: FLUoxetine HCl 10 MG CAP PO SCH (09:05)
[2019-06-09] MEDS: Carbidopa/Levodopa 25-100 mg Tablet PO SCH ×4 (09:06→20:23)
[2019-06-09] MEDS: Montelukast Sodium 10 mg Tablet PO SCH (09:06)
--- NOTE | 2019-06-09 14:56 | PDOC.HOSPP ---
- Subjective Encounter Date: 06/09/19 Encounter Time: 08:00 Subjective: no sob or chest pain awake, is not a morning person to eat breakfast per at bedside - Objective Vital Signs & Weight: Vital Signs (12 hours) Temp Pulse Resp BP BP Pulse Ox 06/09/19 14:23 80 18 06/09/19 10:29 90 18 06/09/19 09:00 99.6 F 90 20 163/78 H 95 06/09/19 05:15 96 18 98 06/09/19 03:19 97.9 F 72 18 189/71 H 97 Weight Admit Weight 215 lb 4.8 oz Weight 215 lb 4.8 oz Result Diagrams: 06/08/19 04:27 06/08/19 04:27 Hospitalist ROS - Medication Medications: Active Medications Generic Name Dose Route Start Last Admin Trade Name Freq PRN Reason Stop Dose Admin Acetaminophen 650 mg 06/02/19 15:16 06/05/19 15:07 Tylenol PO 650 mg Q4H PRN Administration Headache/Fever/Mild Pain (1-3) Albuterol/Ipratropium 3 ml 06/09/19 02:30 06/09/19 14:23 Duoneb NEB 3 ml [id number] MARY Administration Aspirin 81 mg 06/03/19 09:00 06/09/19 09:05 Ecotrin PO 81 mg DAILY MARY Administration Atorvastatin Calcium 10 mg 06/03/19 21:00 06/08/19 20:49 Lipitor PO 10 mg HS MARY Administration Carbidopa/Levodopa 1 tab 06/08/19 17:00 06/09/19 13:10 Sinemet 25-100 PO 1 tab QID MARY Administration Donepezil HCl 10 mg 06/03/19 09:00 06/09/19 09:05 Aricept PO 10 mg DAILY MARY Administration Enoxaparin Sodium 40 mg 06/09/19 09:00 06/09/19 09:05 Lovenox SC 40 mg 0900 MARY Administration Famotidine 20 mg 06/03/19 09:00 06/09/19 09:05 Pepcid PO 20 mg DAILY MARY Administration Fluoxetine HCl 10 mg 06/03/19 09:00 06/09/19 09:05 Prozac PO 10 mg DAILY MARY Administration Metoprolol Tartrate 12.5 mg 06/03/19 09:00 06/09/19 09:05 Lopressor PO 12.5 mg BID MARY Administration Montelukast Sodium 10 mg 06/03/19 09:00 06/09/19 09:06 Singulair PO 10 mg DAILY MARY Administration Quetiapine Fumarate 50 mg 06/06/19 21:00 06/08/19 20:48 Seroquel PO 50 mg HS MARY Administration Tamsulosin HCl 0.4 mg 06/03/19 09:00 06/09/19 09:05 Flomax PO 0.4 mg DAILY MARY Administration - Exam General Appearance: awake alert Eye: PERRL, anicteric sclera ENT: no oropharyngeal lesions, dry oral mucosa Neck: supple, no JVD Heart: RRR, no murmur Respiratory: no wheezes, no rales Gastrointestinal: soft, non-tender, non-distended, normal bowel sounds Extremities: no cyanosis, no edema Neurological: cranial nerve grossly intact, no focal deficits Hosp A/P (1) Acute metabolic encephalopathy Code(s): G93.41 - METABOLIC ENCEPHALOPATHY Status: Resolved (2) Physical deconditioning Code(s): R53.81 - OTHER MALAISE Status: Acute (3) Acute worsening of stage 3 chronic kidney disease Code(s): N18.3 - CHRONIC KIDNEY DISEASE, STAGE 3 (MODERATE) Status: Resolved (4) UTI (urinary tract infection) Status: Resolved Qualifiers: Urinary tract infection type: acute cystitis Hematuria presence: without hematuria Qualified Code(s): N30.00 - Acute cystitis without hematuria (5) Anxiety and depression Code(s): F41.9 - ANXIETY DISORDER, UNSPECIFIED; F32.9 - MAJOR DEPRESSIVE DISORDER, SINGLE EPISODE, UNSPECIFIED Status: Chronic (6) Asthma Code(s): J45.909 - UNSPECIFIED ASTHMA, UNCOMPLICATED Status: Chronic Qualifiers: Asthma severity: mild Asthma persistence: intermittent (7) BPH (benign prostatic hyperplasia) Code(s): N40.0 - BENIGN PROSTATIC HYPERPLASIA WITHOUT LOWER URINRY TRACT SYMP Status: Chronic Qualifiers: Lower urinary tract symptom detail: unspecified (8) CAD (coronary artery disease) Code(s): I25.10 - ATHSCL HEART DISEASE OF [place] CORONARY ARTERY W/O ANG PCTRS Status: Chronic Qualifiers: Coronary Disease-Associated Artery/Lesion type: bypass graft [place] vs. transplanted heart: [place] heart Associated angina: without angina Qualified Code(s): I25.810 - Atherosclerosis of coronary artery bypass graft(s) without angina pectoris (9) Diabetes type 2, controlled Code(s): E11.9 - TYPE 2 DIABETES MELLITUS WITHOUT COMPLICATIONS Status: Chronic Qualifiers: Diabetes mellitus longterm insulin use: without longterm use Diabetes mellitus complication detail: with chronic kidney disease Chronic kidney disease stage: stage 3 (moderate) (10) Dyslipidemia Code(s): E78.5 - HYPERLIPIDEMIA, UNSPECIFIED Status: Chronic (11) Hypertension Code(s): I10 - ESSENTIAL (PRIMARY) HYPERTENSION Status: Chronic Qualifiers: Hypertension type: essential hypertension Qualified Code(s): I10 - Essential (primary) hypertension (12) CHICO (obstructive sleep apnea) Code(s): G47.33 - OBSTRUCTIVE SLEEP APNEA (ADULT) (PEDIATRIC) Status: Chronic (13) Parkinson disease Code(s): G20 - PARKINSON'S DISEASE Status: Chronic - Plan has deconditioning, will need swing/snf prior to home, rehab has denied if he ambulates well with PT then may go home if can manage him, is trying to get extra nursing services with [facility] d/w patient and at bedside continue asp, lipitor, levodopa, aricept, prozac, lopressor, seroquel, flomax to mobilize with PT as tolerated hemostable plan is to start pimavanserin at 10mg when gets the meds by mail (has not recieved it yet) not sure if he will be ready for travel on sunday by air/land towards [facility]/ [facility]
[2019-06-09] MEDS: Atorvastatin Calcium 10 MG TAB PO SCH (20:23)
[2019-06-10] MEDS: Montelukast Sodium 10 mg Tablet PO SCH (09:49)
[2019-06-10] MEDS: Donepezil HCl 10 MG TAB PO SCH (09:54)
[2019-06-10] MEDS: Aspirin 81 mg Enteric Coated Tablet PO SCH (09:54)
[2019-06-10] MEDS: Carbidopa/Levodopa 25-100 mg Tablet PO SCH ×4 (09:54→20:56)
[2019-06-10] MEDS: Famotidine 20 MG TAB PO SCH (09:54)
[2019-06-10] MEDS: Tamsulosin HCl 0.4 MG CAP PO SCH (09:54)
[2019-06-10] MEDS: Metoprolol Tartrate 25 MG TAB PO SCH ×2 (09:55→20:56)
[2019-06-10] MEDS: FLUoxetine HCl 10 MG CAP PO SCH (10:10)
[2019-06-10] MEDS: Enoxaparin Sodium 40 MG/0.4 ML SYRINGE SC SCH (10:10)
--- NOTE | 2019-06-10 15:26 | PDOC.HOSPP ---
- Subjective Encounter Date: 06/10/19 Encounter Time: 10:00 Subjective: lethargic, awakens easily no new issues got his pimavanserin in mail, will start from [facility] serosamm[facility] - Objective Vital Signs & Weight: Vital Signs (12 hours) Temp Pulse Resp BP Pulse Ox 06/10/19 13:43 100 96 06/10/19 12:00 98.0 F 100 20 96 06/10/19 08:06 99.1 F 109 H 20 168/98 H 96 06/10/19 07:48 91 16 95 Weight Admit Weight 215 lb 4.8 oz Weight 215 lb 4.8 oz I&O: 06/09/19 06/10/19 06/11/19 06:59 06:59 06:59 Intake Total 600 Balance 600 Result Diagrams: 06/08/19 04:27 06/08/19 04:27 Hospitalist ROS - Medication Medications: Active Medications Generic Name Dose Route Start Last Admin Trade Name Freq PRN Reason Stop Dose Admin Acetaminophen 650 mg 06/02/19 15:16 06/05/19 15:07 Tylenol PO 650 mg Q4H PRN Administration Headache/Fever/Mild Pain (1-3) Albuterol/Ipratropium 3 ml 06/09/19 02:30 06/10/19 13:43 Duoneb NEB 3 ml [id number] MARY Administration Aspirin 81 mg 06/03/19 09:00 06/10/19 09:54 Ecotrin PO 81 mg DAILY MARY Administration Atorvastatin Calcium 10 mg 06/03/19 21:00 06/09/19 20:23 Lipitor PO 10 mg HS MARY Administration Carbidopa/Levodopa 1 tab 06/08/19 17:00 06/10/19 13:36 Sinemet 25-100 PO 1 tab QID MARY Administration Donepezil HCl 10 mg 06/03/19 09:00 06/10/19 09:54 Aricept PO 10 mg DAILY MARY Administration Enoxaparin Sodium 40 mg 06/09/19 09:00 06/10/19 10:10 Lovenox SC 40 mg 0900 MARY Administration Famotidine 20 mg 06/03/19 09:00 06/10/19 09:54 Pepcid PO 20 mg DAILY MARY Administration Fluoxetine HCl 10 mg 06/03/19 09:00 06/10/19 10:10 Prozac PO 10 mg DAILY MARY Administration Metoprolol Tartrate 12.5 mg 06/03/19 09:00 06/10/19 09:55 Lopressor PO 12.5 mg BID MARY Administration Montelukast Sodium 10 mg 06/03/19 09:00 06/10/19 09:49 Singulair PO 10 mg DAILY MARY Administration Tamsulosin HCl 0.4 mg 06/03/19 09:00 06/10/19 09:54 Flomax PO 0.4 mg DAILY MARY Administration - Exam General Appearance: awake alert Eye: PERRL, anicteric sclera ENT: no oropharyngeal lesions, dry oral mucosa Neck: supple, no JVD Heart: RRR, no murmur Respiratory: no wheezes, no rales Gastrointestinal: soft, non-tender, non-distended, normal bowel sounds Extremities: no cyanosis, no edema Neurological: cranial nerve grossly intact, no focal deficits Hosp A/P (1) Acute metabolic encephalopathy Code(s): G93.41 - METABOLIC ENCEPHALOPATHY Status: Resolved (2) Physical deconditioning Code(s): R53.81 - OTHER MALAISE Status: Acute (3) Acute worsening of stage 3 chronic kidney disease Code(s): N18.3 - CHRONIC KIDNEY DISEASE, STAGE 3 (MODERATE) Status: Resolved (4) UTI (urinary tract infection) Status: Resolved Qualifiers: Urinary tract infection type: acute cystitis Hematuria presence: without hematuria Qualified Code(s): N30.00 - Acute cystitis without hematuria (5) Anxiety and depression Code(s): F41.9 - ANXIETY DISORDER, UNSPECIFIED; F32.9 - MAJOR DEPRESSIVE DISORDER, SINGLE EPISODE, UNSPECIFIED Status: Chronic (6) Asthma Code(s): J45.909 - UNSPECIFIED ASTHMA, UNCOMPLICATED Status: Chronic Qualifiers: Asthma severity: mild Asthma persistence: intermittent (7) BPH (benign prostatic hyperplasia) Code(s): N40.0 - BENIGN PROSTATIC HYPERPLASIA WITHOUT LOWER URINRY TRACT SYMP Status: Chronic Qualifiers: Lower urinary tract symptom detail: unspecified (8) CAD (coronary artery disease) Code(s): I25.10 - ATHSCL HEART DISEASE OF [place] CORONARY ARTERY W/O ANG PCTRS Status: Chronic Qualifiers: Coronary Disease-Associated Artery/Lesion type: bypass graft [place] vs. transplanted heart: [place] heart Associated angina: without angina Qualified Code(s): I25.810 - Atherosclerosis of coronary artery bypass graft(s) without angina pectoris (9) Diabetes type 2, controlled Code(s): E11.9 - TYPE 2 DIABETES MELLITUS WITHOUT COMPLICATIONS Status: Chronic Qualifiers: Diabetes mellitus bed bug exterminator insulin use: without bed bug exterminator use Diabetes mellitus complication detail: with chronic kidney disease Chronic kidney disease stage: stage 3 (moderate) (10) Dyslipidemia Code(s): E78.5 - HYPERLIPIDEMIA, UNSPECIFIED Status: Chronic (11) Hypertension Code(s): I10 - ESSENTIAL (PRIMARY) HYPERTENSION Status: Chronic Qualifiers: Hypertension type: essential hypertension Qualified Code(s): I10 - Essential (primary) hypertension (12) CHICO (obstructive sleep apnea) Code(s): G47.33 - OBSTRUCTIVE SLEEP APNEA (ADULT) (PEDIATRIC) Status: Chronic (13) Parkinson disease Code(s): G20 - PARKINSON'S DISEASE Status: Chronic - Plan wants to take him to [facility] for stem cell iv therapy for 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 and they have a flight to [place] on sunday I have d/w her that he may not be able to fly in his current deconditioning, she wants to give a last shot as he is progressively declining wants us to find a snf so when they come back on sunday she can take him and get admitted to snf either sunday night or sunday morning d/w Ms.Sheri adkins mgmt reg above issue has deconditioning, will need swing/snf prior to home, rehab has denied He needed max assist to even stand up, is trying to get extra nursing services with [facility] continue asp, lipitor, levodopa, aricept, prozac, lopressor, pimavanserin 10mg HS starting 06/10/2019, flomax to mobilize with PT as tolerated hemostable DC plan per CM discussion with is medically stable for dc but has severe deconditioning and needs placement.
[2019-06-10] MEDS: Acetaminophen 325 MG TAB PO PRN (19:23)
[2019-06-10] MEDS: Atorvastatin Calcium 10 MG TAB PO SCH (20:56)
[2019-06-11] MEDS ORDERED: PIMAVANSERIN TARTRATE PO SCH (09:00)
[2019-06-11] MEDS: Tamsulosin HCl 0.4 MG CAP PO SCH (09:39)
[2019-06-11] MEDS: Montelukast Sodium 10 mg Tablet PO SCH (09:39)
[2019-06-11] MEDS: Metoprolol Tartrate 25 MG TAB PO SCH ×2 (09:39→20:35)
[2019-06-11] MEDS: Aspirin 81 mg Enteric Coated Tablet PO SCH (09:39)
[2019-06-11] MEDS: FLUoxetine HCl 10 MG CAP PO SCH (09:39)
[2019-06-11] MEDS: Famotidine 20 MG TAB PO SCH (09:39)
[2019-06-11] MEDS: PIMAVANSERIN TARTRATE PO SCH (09:40)
[2019-06-11] MEDS: Carbidopa/Levodopa 25-100 mg Tablet PO SCH ×4 (10:10→20:35)
[2019-06-11] MEDS: Donepezil HCl 10 MG TAB PO SCH (10:10)
[2019-06-11] MEDS: Enoxaparin Sodium 40 MG/0.4 ML SYRINGE SC SCH (10:10)
--- NOTE | 2019-06-11 11:37 | PRG ---
DATE OF SERVICE: 06/11/2019 SUBJECTIVE: The patient was seen and examined at the bedside. There is quite difficult communication with him. There were no any unexpected events overnight. OBJECTIVE: VITAL SIGNS: Blood pressure is 143/71, pulse is 93, temperature is 98.9, respirations 18, and O2 saturation 96% on room air. GENERAL: He tries to follow my commands, but he falls short quite often. He does not want to open his eyes. He does not want to open his mouth when he is asked to. LUNGS: Clear. HEART: S1, S2 normal. No S3. No S4. No any murmur. ABDOMEN: Soft, nontender. Bowel sounds are present. EXTREMITIES: No clubbing, cyanosis, or edema. NEUROLOGIC: He behaves like typical Parkinson patient with quite advanced features. He has cogwheel rigidity in the upper extremities. LABORATORY DATA: None today. IMPRESSION: 1. Acute metabolic encephalopathy, resolved. 2. Advanced Parkinson disease with some dementia features. 3. Physical deconditioning, profound. 4. Urinary tract infection. 5. History of benign prostatic hypertrophy. 6. Coronary artery disease, chronic, stable. 7. Diabetes mellitus, type 2, chronic, stable. 8. Dyslipidemia. 9. Hypertension. 10. Obstructive sleep apnea. PLAN: The patient is getting PT daily. He needs to continue this and be transferred to senior care facility for more PT. His wants to take him to [facility] for stem cell treatment - this can be done later in the next 2 weeks when he is stronger at this point. He is not really able to fly, and we will continue current regimen and try to get him to skilled facility. Job ID: [id number]
[2019-06-11] MEDS ORDERED: hydrALAZINE 20 MG/ML VIAL SLOW IVP PRN (15:10)
[2019-06-11] MEDS ORDERED: Amlodipine 5 MG TAB PO SCH (16:00)
[2019-06-11] MEDS ORDERED: Milk Of Magnesia 30 ML UDCUP PO SCH (18:30)
[2019-06-11] MEDS: Atorvastatin Calcium 10 MG TAB PO SCH (20:35)
[2019-06-12] MEDS: PIMAVANSERIN TARTRATE PO SCH (09:00)
[2019-06-12] MEDS: Metoprolol Tartrate 25 MG TAB PO SCH ×2 (09:01→21:06)
[2019-06-12] MEDS: Donepezil HCl 10 MG TAB PO SCH (09:01)
[2019-06-12] MEDS: FLUoxetine HCl 10 MG CAP PO SCH (09:01)
[2019-06-12] MEDS: Carbidopa/Levodopa 25-100 mg Tablet PO SCH ×4 (09:02→21:06)
[2019-06-12] MEDS: Famotidine 20 MG TAB PO SCH (09:02)
[2019-06-12] MEDS: Tamsulosin HCl 0.4 MG CAP PO SCH (09:02)
[2019-06-12] MEDS: Aspirin 81 mg Enteric Coated Tablet PO SCH (09:02)
[2019-06-12] MEDS: Montelukast Sodium 10 mg Tablet PO SCH (09:02)
[2019-06-12] MEDS: Amlodipine 5 MG TAB PO SCH (09:03)
--- NOTE | 2019-06-12 14:07 | PRG ---
DATE OF SERVICE: 06/12/2019 SUBJECTIVE: The patient is seen and examined at the bedside. His presents in the room during my visit. He is more awake and this morning, he tries to converse with me. OBJECTIVE: VITAL SIGNS: Blood pressure is 133/82, pulse is 80, temperature is 98.9, respiratory rate is 18, and O2 saturation is 94% on room air. HEENT: His sclerae are not icteric. Conjunctivae pinkish. Oral mucosa is moist. NECK: Supple. LUNGS: Breath sounds diminished at both bases. HEART: S1 and S2 normal. No S3. No S4. ABDOMEN: Soft, nontender, and nondistended. EXTREMITIES: He has contractions on both upper extremities. He has cogwheel rigidity present on both upper extremities. LABORATORY DATA: None today. IMPRESSION: 1. Acute metabolic encephalopathy, resolved. 2. Advanced Parkinson disease with some dementia features. 3. Physical deconditioning, profound. 4. Urinary tract infection, status post treatment. 5. History of benign prostatic hypertrophy. 6. Coronary artery disease, chronic, stable. 7. Diabetes mellitus type 2, chronic, stable. 8. Dyslipidemia. 9. Hypertension. 10. Obstructive sleep apnea. PLAN: The patient is supposed to go to [place] for stem cell treatment, which is arranged by his and they want to be discharged tomorrow morning, so they can catch the flight to [place]. The patient's was advised not to do that. We will await until he gets more strength with PT, but she is insisting to go there and come back and maybe do physical therapy after that. She is trying to arrange more help at home. For now, we are going to continue his current regimen, which includes DuoNebs, amlodipine, aspirin, atorvastatin, carbidopa/levodopa, Aricept, famotidine, Prozac, metoprolol tartrate, montelukast, Nuplazid, and Flomax. Job ID: [id number]
[2019-06-12] MEDS: Atorvastatin Calcium 10 MG TAB PO SCH (21:08)
[2019-06-13] MEDS: Aspirin 81 mg Enteric Coated Tablet PO SCH (08:48)
[2019-06-13] MEDS: Famotidine 20 MG TAB PO SCH (08:49)
[2019-06-13] MEDS: Metoprolol Tartrate 25 MG TAB PO SCH (08:49)
[2019-06-13] MEDS: Tamsulosin HCl 0.4 MG CAP PO SCH (08:49)
[2019-06-13] MEDS: Carbidopa/Levodopa 25-100 mg Tablet PO SCH (08:49)
[2019-06-13] MEDS: Amlodipine 5 MG TAB PO SCH (08:49)
[2019-06-13] MEDS: Donepezil HCl 10 MG TAB PO SCH (08:49)
[2019-06-13] MEDS: Montelukast Sodium 10 mg Tablet PO SCH (08:49)
[2019-06-13] MEDS: PIMAVANSERIN TARTRATE PO SCH (08:52)
[2019-06-13] MEDS: FLUoxetine HCl 10 MG CAP PO SCH (08:52)
[2019-06-13 09:28] VITALS: BP 156/76; TEMP 98.2
--- NOTE | 2019-06-14 02:10 | PQF ---
LISSA OSORIO ZBIGNIEW A MD [id number] [address] [place] [address] [id number] CLINICAL DOCUMENTATION CLARIFICATION FORM: POST DISCHARGE Addendum to original discharge summary date: ____ Late entry note date: __ DATE: 06/14/19 ATTN: Michela Jeronimo Please exercise your independent, professional judgment in responding to the clarification form. Clinical indicators are provided on the bottom of this form for your review Can you please further clarify the diagnosis based on the clinical indicators below? Please check appropriate box(es): [ ] Sepsis due to: (Pna, UTI, gangrenous gall bladder, etc.) [ ] SIRS due to non-infectious process (please specify etiology) [ ] with organ dysfunction [ ] without organ dysfunction [ ] Severe sepsis with acute organ dysfunction of: (Examples: respiratory failure, encephalopathy, acute kidney failure, other) [ ] Localized infection without sepsis [ x ] Other diagnosis __UTI [ ] Unable to determine In addition, please specify: Present on Admission (POA): [ X ] Yes [ ] No [ ] Unable to determine For continuity of documentation, please document condition throughout progress notes and discharge summary. Thank You. CLINICAL INDICATORS - SIGNS / SYMPTOMS / LABS Consult 06/03 Dr. Nettles pg.1- he was found to have evidence of urinary tract infection Consult 06/03 Dr. Nettles pg.1- his temperature maximum has been 100 degrees Hospitalist PN 06/04 Dr. Panchal pg.5- UTI, Klebsiella ssp H and P pg.1- altered mental status , potentially multifactorial RISK FACTORS Metabolic encephalopathy-Hospitalist PN 06/04 Dr. Panchal pg.5 Acute worsening of stage 3 CKD-Hospitalist PN 06/04 Dr. Panchal pg.5 73 years old with Parkinson- H and P pg.1 UTI- H and P pg.2 TREATMENTS: Microbiology- Urine culture 06/02 IV fluids- SEP 10 IV antibiotics- SEP 10 (This form is maintained as a part of the permanent medical record) 2014 [employer]. All Rights Reserved Chris [email or web address] [not provided] MTDD
--- NOTE | 2019-06-16 08:33 | DIS ---
DATE OF ADMISSION: 06/03/2019 DATE OF DISCHARGE: 06/13/2019 DISCHARGE DISPOSITION: Home with [facility]. PRIMARY DISCHARGE DIAGNOSES: 1. Acute metabolic encephalopathy, resolved. 2. Deconditioning. 3. Acute worsening of stage 3 chronic kidney disease. 4. Urinary tract infection. 5. Anxiety. 6. Depression. 7. Asthma. 8. Benign prostatic hyperplasia. 9. Coronary artery disease. 10. Diabetes mellitus type 2. 11. Dyslipidemia. 12. Hypertension. 13. Obstructive sleep apnea. 14. Parkinson disease. PROCEDURES DONE DURING HOSPITALIZATION: CT of brain done showed no evidence of acute intracranial process. 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 Chest x-ray done showed no acute cardiopulmonary abnormality. Echo with 2D Doppler showed an ejection fraction of 50%. Calcification of the mitral valve was seen. No thrombus seen. Urine culture grew Klebsiella pneumoniae species, sensitive to all antibiotics except nitrofurantoin. Blood cultures x2, no growth. Influenza A and B antigens were negative. H and H 13 and 37, platelet count 176, and MCV is 91. Discharge BUN and creatinine are 11 and 1.56. Admitting BUN and creatinine 18 and 1.7. UA was positive for UTI. DISCHARGE MEDICATIONS: 1. Carbidopa/levodopa 25/100 mg 1 tablet 4 times daily. 2. Aspirin 81 mg daily. 3. Donepezil 10 mg daily. 4. Pimavanserin tartrate 10 mg daily. 5. Multivitamin 1 tablet once daily. 6. Singulair 10 mg daily. 7. Lopressor 12.5 mg twice daily. 8. Prozac 10 mg daily. 9. Aricept 10 mg daily. 10. Pravastatin 40 mg p.o. at bedtime. 11. Flomax 0.4 mg p.o. daily. 12. Norvasc 2.5 mg p.o. daily. ALLERGIES: TO CODEINE AND ANTIHISTAMINES. INPATIENT CONSULT: Dr. Nettles for Neurology. DISCHARGE PLAN: The patient to follow up with Dr. Lincoln Art his primary care physician in 1 week. He also needs to follow up with Dr. Nettles, neurologist in 2 weeks. BRIEF COURSE DURING HOSPITALIZATION: The patient initially got hospitalized on the with complaints of hallucinations, increased tremors, and altered mental state. He was also found to have had urinary tract infection. The patient had acute metabolic encephalopathy. The patient had mild acute kidney injury on top of his chronic kidney disease stage 3. He was gently hydrated and was placed on ceftriaxone. Initial workup including CT of brain did not reveal any acute infarct. The patient has underlying Parkinson's with dementia, which has been progressive. His acute metabolic encephalopathy resolved, but the patient still has deconditioning. The patient's is planning for stem-cell therapy as a last resort to help his dementia which is being done in [facility] in [place]. She is planning to take him by flight today from [place] to [place] and then by road. She is clearly aware that he is deconditioned and may not make it. Skilled placement was planned initially, but the patient's wanted to try above stem-cell therapy. In view of this, he is being discharged home. [facility] has been placed. The patient's is also planning to have extra hours of nursing which she will self-pay. If the patient's cannot manage him at home, she needs to talk to her primary care physician, Dr. Lincoln Art and arrange for a jail home. He is otherwise hemodynamically stable and will be shortly discharged home. Please note, I have seen and examined the patient on the day of discharge. Job ID: [id number] MTDD
--- NOTE | 2019-06-16 23:56 | PQF ---
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 Clinical indicators are provided on the bottom of this form for your review Can you please clarify the reason for admission being treated for this patient? Please check appropriate box(s): [ x ] Acute Metabolic encephalopathy [ x ] Acute kidney injury [ x ] Urinary Tract infection [ ] Other diagnosis [ ] Unable to determine In addition, please specify: All of these are documented, dont understand the need for this query. Present on Admission (POA): [ x ] Yes [ ] No [ ] Unable to determine For continuity of documentation, please document condition throughout progress notes and discharge summary. Thank You. CLINICAL INDICATORS - SIGNS / SYMPTOMS / LABS H and P pg.1- altered mental status , potentially multifactorial Consult 06/03 Dr. Nettles pg.1- he was found to have evidence of urinary tract infection Consult 06/03 Dr. Nettles pg.1- his temperature maximum has been 100 degrees Hospitalist PN 06/04 Dr. Panchal pg.5- UTI, Klebsiella ssp DS pg.1- acte metabolic encephalopathy resolved DS pg.1- acute worsening of stage 3 chronic kidney surgery RISK FACTORS 73 years old with Parkinson- H and P pg.1 Deconditioning- DS pg.1 CAD- DS pg.1 BPH- DS pg.1 CHICO- DS pg.1 CKD 3- DS pg.1 TREATMENTS: Microbiology- Urine culture 06/02 IV fluids- SEP 10 IV antibiotics- SEP 10 CT Brain 06/02 TTE-Echocardiogram 06/03 (This form is maintained as a part of the permanent medical record) 2014 [employer]. All Rights Reserved Chris [email or web address] [not provided] MELED
== END 2019-06-13 10:47 | disposition home health service (06) | DRG 682 ==
LOC: ERS 11:35 → 2SE 13:24 → UNDOADMOB 13:24 → OBSVTOIN 16:25 → INTOOBSV 16:25 → 2SE 06-03 16:25 → OBSVTOIN 06-03 16:25 → SURG A 06-08 14:17
PROVIDERS: ADMIT Internal Medicine; ATTEND Internal Medicine
DX: N17.9 Acute kidney failure, unspecified (principal); G93.41 Metabolic encephalopathy; N30.00 Acute cystitis without hematuria; Z66 Do not resuscitate; E78.00 Pure hypercholesterolemia, unspecified; G47.33 Obstructive sleep apnea (adult) (pediatric); I25.10 Atherosclerotic heart disease of native coronary artery without angina pectoris; G20 Parkinson's disease; B96.1 Klebsiella pneumoniae [K. pneumoniae] as the cause of diseases classified elsewhere; E11.22 Type 2 diabetes mellitus with diabetic chronic kidney disease; J45.20 Mild intermittent asthma, uncomplicated; N40.0 Benign prostatic hyperplasia without lower urinary tract symptoms; E78.5 Hyperlipidemia, unspecified; F02.80 Dementia in other diseases classified elsewhere, unspecified severity, without behavioral disturbance, psychotic disturbance, mood disturbance, and anxiety; N18.3 Chronic kidney disease, stage 3 (moderate); F32.9 Major depressive disorder, single episode, unspecified; Z95.1 Presence of aortocoronary bypass graft; Z90.49 Acquired absence of other specified parts of digestive tract; Z88.5 Allergy status to narcotic agent; Z88.8 Allergy status to other drugs, medicaments and biological substances; Z79.899 Other long term (current) drug therapy; Z79.82 Long term (current) use of aspirin; Z95.5 Presence of coronary angioplasty implant and graft; I12.9 Hypertensive chronic kidney disease with stage 1 through stage 4 chronic kidney disease, or unspecified chronic kidney disease; F41.9 Anxiety disorder, unspecified
CPT/HCPCS: 36415; 51701; 70450; 71045; 80048; 80053; 81003; 81015; 82330; 82803; 83605; 85007; 85025; 85027; 87040; 87077; 87086; 87186; 87804; 93005; 93306; 94640; 96361; 96365; J0696; J1650; J2060; J3490; J7620

== ENCOUNTER 2019-09-12 12:40 | Emergency (ER) | payer MEDICARE, BC ==
[2019-09-12 14:20] LABS: Bilirubin Negative (Negative); Blood, Urine Negative (Negative); Clarity Clear (Clear); Glucose, Urine (Dipstick) Normal (Negative); Leukocyte Negative Leu/uL (Negative); Nitrite Negative (Negative); Protein, Urine (Dipstick) Negative (Neg-Trace); Urobilinogen Normal mg/dL (Less than 2)
[2019-09-12 14:21] LABS: #Eosinphils 0.3 thou/uL (0.0-0.7); #Lymphocytes 1.7 thou/uL (1.20-3.40); #Monocytes 0.5 thou/uL (0.11-0.59); #Neutrophils 5.3 thou/uL (1.40-6.50); %Basophils 0.5 % (0.0-1.0); %Eosinophils 3.9 % (0.0-10.0); %Lymphocytes 21.3 % (21.0-51.0); %Neutrophils 67.4 % (42.0-75.0); Hemoglobin 12.8 g/dL (14.0-18.0); Mean Corpuscular Hemoglobin 31.1 pg (27.0-31.0); Mean Corpuscular Volume 91.5 fL (78.0-98.0); Mean Platelet Volume 7.7 fL (7.4-10.4); Platelet Count 233 thou/uL (130-400); RBC Distribution Width 12.8 % (11.5-14.5); White Blood Cell (WBC) Count 7.8 thou/uL (4.8-10.8)
[2019-09-12 14:47] LABS: ALT (SGPT) Less than 7 U/L (8-55); AST (SGOT) 13 U/L (5-34); Albumin 3.9 g/dL (3.4-4.8); Alkaline Phosphatase 108 U/L (40-110); Anion Gap 15 mmol/L (10-20); BUN (Urea Nitrogen) 25 mg/dL (8.4-25.7); Bilirubin, Total 0.7 mg/dL (0.2-1.2); Calc. Creatinine Clearance 0 mL/min (70-130); Calcium 9.5 mg/dL (7.8-10.44); Carbon Dioxide 23 mmol/L (23-31); Chloride 103 mmol/L (98-107); Estimated GFR-MDRD 41; Glucose 139 mg/dL (83-110); Potassium 4.7 mmol/L (3.5-5.1); Protein, Total 6.9 g/dL (5.8-8.1); Sodium 136 mmol/L (136-145)
== END 2019-09-12 19:18 ==
LOC: ERS 12:40
DX: R53.1 Weakness (principal); G89.18 Other acute postprocedural pain; M79.605 Pain in left leg; I10 Essential (primary) hypertension; E78.00 Pure hypercholesterolemia, unspecified; G47.30 Sleep apnea, unspecified; I25.10 Atherosclerotic heart disease of native coronary artery without angina pectoris; G20 Parkinson's disease; F32.9 Major depressive disorder, single episode, unspecified; Z79.899 Other long term (current) drug therapy; Z79.82 Long term (current) use of aspirin
CPT/HCPCS: 36415; 80053; 81003; 83605; 84484; 85025; 93005; 94760; 96360; 96361

== ENCOUNTER 2019-09-29 09:44 | Inpatient (IN) | payer MEDICARE, BC ==
--- NOTE | 2019-09-29 10:31 | RAD ---
XR Chest 1 View Portable HISTORY: Chest pain COMPARISON: 09/21/2019 FINDINGS: Changes of median sternotomy are again seen. The heart size is enlarged. There is an interv al improvement of the pleural parenchymal changes in the left lung base. No pneumothoraces are seen. There is no evidence of rhiannon pulmonary edema. Chronic changes in the left proximal humerus and changes of right humeral head prostheses are again seen.
[2019-09-29] MEDS ORDERED: Aspirin Chewable 81 MG TAB ONE (10:43)
[2019-09-29] MEDS ORDERED: Atorvastatin Calcium 40 MG TAB PO SCH (12:30)
[2019-09-29] MEDS ORDERED: Clopidogrel Bisulfate 300 MG TAB PO SCH ×3 (12:30→13:47)
[2019-09-29 13:07] LABS: Troponin I 0.634 ng/mL (< 0.028)
[2019-09-29] MEDS ORDERED: Ondansetron ODT 4 MG TAB SL PRN (13:20)
[2019-09-29] MEDS ORDERED: Ondansetron PF 4 MG/2 ML Vial IVP PRN (13:20)
[2019-09-29] MEDS ORDERED: Acetaminophen 325 MG TAB PO PRN ×2 (13:20→17:49)
[2019-09-29] MEDS ORDERED: Nitroglycerin 0.4 MG TAB (25 Tab Bottle) PO PRN (13:47)
[2019-09-29] MEDS ORDERED: Heparin 25,000 units/D5W 500 ML IVPB SCH (13:47)
[2019-09-29] MEDS ORDERED: Atorvastatin Calcium 40 MG TAB PO STA (13:47)
[2019-09-29] MEDS ORDERED: Lisinopril 20 MG TAB PO SCH (14:00)
[2019-09-29 14:16] VITALS: BMI 27.6
[2019-09-29 14:31] LABS: Hemoglobin 12.4 g/dL (14.0-18.0); Platelet Count 204 thou/uL (130-400)
--- NOTE | 2019-09-29 14:57 | PDOC.HHP ---
Hospitalist HPI - History of Present Illness chest pain History of Present Illness: Patient has dementia and is a poor historian. History based on patient's report as well as prior documentation. 73yo M w/ MHx of CABG, multiple coronary stents (years ago), T2DM, HTN, recent left femur fracture presents for chest pain. Occured this morning at [facility], woke him from sleep, substernal, pressure like, persistent, lasted for an hour and resolved by the time he arrived to the ED. even though patient endorses no chest pain or shortness of breath in recent history, patient had a troponin checked on 09/23 for unknown reason and it was elevated at ~ 0.25. On encounter, laying comfortably in bed and has no complaints. Denies fatigue, syncope, presyncope, recent fall; chest, jaw, arm, or back pain or pressure, diarrhea, hematocheniza, melena, hematuria, history of intracranial bleeding ED Course: In the ED, troponin was found to be ~ 0.5. Received aspirin 325mg and was admitted to the telemetry floor for further management. Hospitalist ROS - Review of Systems All other systems reviewed; all pertinent +/- noted in HPI/Subj - Medication Medications: Active Medications Generic Name Dose Route Start Last Admin Trade Name Freq PRN Reason Stop Dose Admin Lisinopril 20 mg 09/29/19 14:00 09/29/19 14:31 Zestril PO 09/29/19 16:00 20 mg NOW MARY Administration Hospitalist History - Past Medical History Cardiac: reports: CAD, HTN, MA. denies: CHF [employer] SUPER[employer]OR: reports: Dementia. denies: CVA, Seizure Gastrointestinal: denies: GI bleed, Peptic ulcer disease Heme/Onc: denies: Iron deficiency anemia Endocrine: reports: Diabetes - Past Surgical History Past Surgical History: reports: CABG (per patient years ago), Other (left hip fracture repair a few weeks ago) - Family History Family History: reports: cardiac disorder, diabetes mellitus, hypertension - Social History Smoking Status: Never smoker Alcohol: reports: None Drugs: reports: none Living Situation: With Family Activity level: uses cane/walker - Exam General Appearance: NAD, awake alert Eye: PERRL ENT: normocephalic atraumatic, moist mucosa Neck: no JVD Heart: no murmur, no gallops, no rubs. negative: diminshed peripheral pulses, murmur present Heart - other findings: regular rhythm, bradycardic; vertical sternal scar Respiratory: CTAB, no wheezes, no rales, no ronchi Gastrointestinal: soft, non-tender, non-distended, normal bowel sounds Extremities: no edema Musculoskeletal: normal tone, normal strength Psychiatric: normal affect, normal behavior, A&O x 3 Hospitalist Results - Labs Result Diagrams: 09/29/19 14:14 Lab results: Hgb 12.4 g/dL (14.0-18.0) L 09/29/19 14:14 Hct 36.6 % (42.0-52.0) L 09/29/19 14:14 Plt Count 204 thou/uL (130-400) 09/29/19 14:14 Troponin I 0.634 ng/mL (< 0.028) H* 09/29/19 12:26 - EKG Interpretation EKG: sinus bradycardia, q waves in inferior leads, q waves and inverted T waves in anteroseptal leads Hospitalist H&P A/P - Problem (1) NSTEMI (non-ST elevated myocardial infarction) Code(s): I21.4 - NON-ST ELEVATION (NSTEMI) MYOCARDIAL INFARCTION Status: Acute Assessment and Plan: woken up by substernal pressure this morning -significant cardiac history CABG and 7 stents asymptomatic on encounter EKG showing sinus bradycardia, anteroseptal t-wave inversions and inferior q waves Well's score low risk for PE Troponin 09/23 0.25 -> today 0.5 -> 0.6 JERRY score 5 no contraindication to anticoagulation started heparin drip, plavix loaded, aspirin 325mg, atorvastatin 40mg TTE avoided nitroglycerin due to bradycardia; also held home metoprolol cardiology consulted (2) CAD (coronary artery disease) Code(s): I25.10 - ATHSCL HEART DISEASE OF [place] CORONARY ARTERY W/O ANG PCTRS Status: Chronic Qualifiers: Assessment and Plan: s/p CABG and multiple stents patient poor historian, claims had chest pain only this morning; however troponin checked on 09/23 as well Cardiogist is Dr. cole restarted lisinopril (also for HTN) held metoprolol due to bradycardia (3) CKD (chronic kidney disease) stage 3, GFR 30-59 ml/min Code(s): N18.3 - CHRONIC KIDNEY DISEASE, STAGE 3 (MODERATE) Status: Acute Assessment and Plan: currently at baseline continue lisinopril (4) BPH (benign prostatic hyperplasia) Code(s): N40.0 - BENIGN PROSTATIC HYPERPLASIA WITHOUT LOWER URINRY TRACT SYMP Status: Chronic Assessment and Plan: restarted home tamsulosin follow i/o (5) Diabetes type 2, controlled Code(s): E11.9 - TYPE 2 DIABETES MELLITUS WITHOUT COMPLICATIONS Status: Chronic Assessment and Plan: mild sliding scale (6) Thrombocytopenia Code(s): D69.6 - THROMBOCYTOPENIA, UNSPECIFIED Status: Acute Assessment and Plan: history of thrombocytopenia however platelet levels normal on presentation - Plan Plan: Disposition/PPx Telemetry inpatient ([id number]) updated regarding patient's condition. is surrogate decision maker GI PPx: no Ix DVT PPx: on therapeutic heparin No CPR but intubate if necessary as per patient's requests ELOS: 2 midnights
[2019-09-29 15:05] LABS: Troponin I 0.666 ng/mL (< 0.028)
[2019-09-29] MEDS ORDERED: Dextrose 50% Abboject 50 ML SYRINGE SLOW IVP PRN (15:26)
[2019-09-29] MEDS ORDERED: Dextrose 5% in Water 1,000 ML IV PRN (15:26)
[2019-09-29] MEDS ORDERED: HumaLOG 300 UNITS/3 ML VIAL SC PRN ×2 (15:26)
[2019-09-29] MEDS ORDERED: Senokot S 8.6-50 MG TAB PO PRN (15:28)
[2019-09-29] MEDS: Heparin 10,000 UNITS/ 10 ML VIAL SLOW IVP SCH (15:39)
[2019-09-29] MEDS: Carbidopa/Levodopa 25-100 mg Tablet PO SCH ×2 (17:46→21:19)
--- NOTE | 2019-09-29 18:54 | CON ---
DATE OF CONSULTATION: 09/29/2019 INDICATION FOR CONSULTATION: A 73-year-old patient with chest pain earlier today and slight abnormality of the cardiac enzymes with a history of coronary artery disease. HISTORY OF PRESENT ILLNESS: This very unfortunate 73-year-old gentleman has history of Parkinson's disease and has some degree of dementia or it is just due to the Parkinson's, very difficult historian. He apparently was in rehab after having a right ankle fracture about 2 months ago. ( He tells me he was actually at home today, earlier was walking outside in the [place] and when he came home, he had some chest pain). He had enzymes obtained and the first set showed a troponin I of 0.25, second set was 0.48, the third set was 0.63, and the next set was 0.66. The MBs remain negative for myocardial infarction. EKG shows some mild nonspecific changes. He does have small Q-waves inferiorly and has T-wave inversions in V1 and V2. He has had a history of coronary artery disease in the past, uncertain as to which vessels were bypassed. He has also apparently had several stents placed. The history is mainly obtained from the medical records as the patient is a very poor historian. At this time, he denies any chest pain to me. EKG does not show any acute changes. Most likely it is best to continue his medications, adjust as necessary and if the enzymes continue to be significantly elevated, then we will consider cardiac catheterization, but at this time we will treat medically. PAST MEDICAL HISTORY: Significant for coronary artery disease, Parkinson's disease, hypertension, hyperlipidemia, history of sleep apnea, history of bypass surgery , and history of stent placements. He has also had orthopedic surgery to his right shoulder and the right ankle. He has had a right toe amputation in 2016. He has a history of depression. He also has abnormality of the left shoulder. ALLERGIES: HE IS ALLERGIC TO SUPPOSEDLY ANTIHISTAMINES, CODEINE, DIPHENHYDRAMINE, HYDROCODONE, MORPHINE, AND ZOLPIDEM. MEDICATIONS: On admission included; 1. Propranolol. 2. Amantadine. 3. Donepezil. 4. Pravastatin. 5. Tamsulosin. 6. Fluoxetine. 7. Metoprolol, he was taking 25 mg twice a day. 8. Carbidopa/levodopa 25/100 one q.i.d. 9. Ranitidine. 10. Aspirin 81 mg. 11. Lisinopril 10 mg. 12. Montelukast. 13. Mirtazapine. 14. Myrbetriq. REVIEW OF SYSTEMS: Please refer to the notes already dictated. I cannot get any clear review of systems from this patient. FAMILY HISTORY: Noncontributory. PHYSICAL EXAMINATION: GENERAL: Reveals an elderly gentleman who obviously has some degree of dementia , has Parkinson's disease, has some degree of poor mobility, does have some tremors. VITAL SIGNS: Show blood pressure of 151/80, heart rates in the 48 to 50 range, he is afebrile, respiratory rate is 14, and O2 saturation is 98%. HEENT EXAMINATION: Shows head to be normocephalic and atraumatic. Carotid pulses are present. Did not hear any significant bruits. CHEST: Clear to auscultation. He is not taking deep inspiratory effort, however. CARDIOVASCULAR: Reveals a regular rate and rhythm. I do not hear any gross murmurs. There are no heaves or thrills noted. He has well-healed midline surgical incision. ABDOMEN: Soft and nontender. Positive bowel sounds are present. EXTREMITIES: Show no clubbing or cyanosis. Pedal pulses are decreased but are present. NEUROLOGIC: The patient has obvious signs of dementia as well as Parkinson's disease. LABORATORY DATA: Shows a sodium of 140; potassium 4.1; BUN was 19; creatinine 1.55, which is decreased from earlier creatinine WBC was 5.2, hemoglobin 12.4, and platelet count was 204,000. Please note, his creatinine actually on 09/24 was 2.16. DIAGNOSTIC STUDIES: His EKG shows normal sinus rhythm with no acute changes. He does have small Q-waves inferiorly. He has a T-wave inversions in V1 and V2. I do not know whether this is new or not, but appears to be unchanged and stable from other EKGs which have been obtained. At least from the telemetry, I do not see any other acute changes. He had an EKG at 1007 today and also done at 1131 and these pretty much remain the same. IMPRESSION: 1. Probable small [id number] elevation myocardial infarction type 2, most likely due to demand ischemia associated with his hip fracture and renal insufficiency. We will continue to monitor this and trend the cardiac enzymes. If they become significantly more elevated, then could consider repeat cardiac catheterization in this gentleman. However, he does have renal insufficiency and could have worsening of his renal function. We will treat medically at this time. We will try to obtain the records from his previous cardiac catheterization with most recent cardiac catheterization to evaluate for his coronary artery disease and for the stents which were placed and we can certainly adjust his medications by adding nitrates or Ranexa. I do not know what his ejection fraction is. He will need to undergo an echocardiogram, if one has not been done recently. His present tapper hand has been Dr. Bowers, but he cannot recall the last time that he saw Dr. Bowers. Echo has been ordered but is not yet available for review. As far as his other medical problems which include hypertension, this is also slightly elevated. Again, we can start nitrates for lowering of the blood pressure and also if he has underlying ischemia, this will also help. 2. Parkinson's disease. Will be dealt with by the primary care service. 3. Hypercholesterolemia. He has been placed on statin medications, Lipitor. I would agree with continuing that medication. We will continue to follow the patient with you. We will review the echocardiogram and further recommendations will depend on whether or not the cardiac enzymes stabilize, whether or not he has any more chest pain. At this time, he says he has no chest pain. He is feeling quite comfortable. Job ID: [id number] [facility] DAVID HOSPITALMonie
[2019-09-29] MEDS: Albuterol Sulfate 2.5 mg/3 ml Neb NEB SCH (19:35)
[2019-09-29] MEDS: Ipratropium Oral Inhaler INH SCH (19:37)
[2019-09-29] MEDS: Mometasone 200 MCG/Formoterol 5 MCG 120 PUFF INHALER INH SCH (19:38)
[2019-09-29] MEDS ORDERED: Mirtazapine 30 MG TAB PO SCH (21:00)
[2019-09-29] MEDS ORDERED: Metoprolol Tartrate 25 MG TAB PO SCH (21:00)
[2019-09-29] MEDS ORDERED: Atorvastatin Calcium 20 MG TAB PO SCH (21:00)
[2019-09-29] MEDS: Isosorbide Dinitrate 5 MG TAB PO SCH (21:19)
[2019-09-29] MEDS: Amantadine HCl 100 mg Capsule PO SCH (21:20)
[2019-09-30] MEDS ORDERED: Nitroglycerin 0.4 MG TAB (25 Tab Bottle) PO PRN (01:57)
[2019-09-30 02:22] LABS: Hemoglobin 10.6 g/dL (14.0-18.0); Platelet Count 191 thou/uL (130-400)
[2019-09-30] MEDS: Heparin 10,000 UNITS/ 10 ML VIAL SLOW IVP SCH (02:50)
[2019-09-30 02:52] LABS: Critical Call Chem Troponin I RESULT DECREASING
[2019-09-30 03:07] LABS: Magnesium 1.7 mg/dL (1.6-2.6); Potassium 3.6 mmol/L (3.5-5.1)
[2019-09-30 03:11] LABS: CKMB 1.3 ng/mL (0-6.6)
[2019-09-30] MEDS ORDERED: Lisinopril 10 MG TAB PO SCH (06:00)
[2019-09-30] MEDS ORDERED: Docusate 100 MG CAP PO SCH (09:00)
[2019-09-30] MEDS ORDERED: Montelukast Sodium 10 mg Tablet PO SCH (09:00)
[2019-09-30] MEDS ORDERED: Amlodipine 5 MG TAB PO SCH ×2 (09:00→13:00)
[2019-09-30] MEDS ORDERED: Tamsulosin HCl 0.4 MG CAP PO SCH (09:00)
[2019-09-30] MEDS ORDERED: Multivitamin W/ Minerals 1 TAB PO SCH (09:00)
[2019-09-30] MEDS ORDERED: FLUoxetine HCl 10 MG CAP PO SCH (09:00)
[2019-09-30] MEDS ORDERED: Donepezil HCl 10 MG TAB PO SCH (09:00)
[2019-09-30] MEDS ORDERED: Lisinopril 20 MG TAB PO SCH (09:00)
[2019-09-30] MEDS ORDERED: Clopidogrel Bisulfate 75 MG TAB PO SCH (09:00)
[2019-09-30] MEDS ORDERED: Aspirin 325 mg Enteric Coated Tablet PO SCH (09:00)
[2019-09-30] MEDS ORDERED: PIMAVANSERIN TARTRATE PO SCH (09:00)
[2019-09-30] MEDS ORDERED: Aspirin 81 mg Enteric Coated Tablet PO SCH (09:00)
[2019-09-30] MEDS: Albuterol Sulfate 2.5 mg/3 ml Neb NEB SCH ×2 (09:52→11:11)
[2019-09-30] MEDS: Mometasone 200 MCG/Formoterol 5 MCG 120 PUFF INHALER INH SCH (09:52)
[2019-09-30] MEDS: Ipratropium Oral Inhaler INH SCH ×2 (09:53→11:11)
[2019-09-30 11:06] LABS: Hemoglobin 11.8 g/dL (14.0-18.0)
[2019-09-30] MEDS: Isosorbide Dinitrate 5 MG TAB PO SCH (11:15)
[2019-09-30] MEDS: Carbidopa/Levodopa 25-100 mg Tablet PO SCH ×2 (11:15→14:30)
[2019-09-30] MEDS: Amantadine HCl 100 mg Capsule PO SCH (11:16)
[2019-09-30 11:29] VITALS: TEMP 97.8
--- NOTE | 2019-09-30 13:43 | PDOC.HOSPP ---
- Subjective Encounter Date: 09/30/19 Encounter Time: 09:00 Subjective: no overnight events. This morning, has no complaints. denies chest pain or shortness of breath. - Objective Vital Signs & Weight: Vital Signs (12 hours) Temp Pulse Pulse Pulse Pulse Resp BP 09/30/19 11:11 97.8 F 75 16 09/30/19 10:15 59 L 76 64 09/30/19 09:05 62 61 09/30/19 07:10 97.9 F 66 17 09/30/19 05:48 180/96 H 09/30/19 04:00 97.5 F L 80 18 09/30/19 02:28 71 09/30/19 01:51 72 16 BP BP BP BP Pulse Ox 09/30/19 11:11 170/84 H 100 09/30/19 10:15 202/99 H 155/94 H 189/105 H 09/30/19 09:05 164/90 H 203/99 H 09/30/19 07:10 180/90 H 98 09/30/19 05:48 09/30/19 04:00 180/96 H 96 09/30/19 02:28 138/81 09/30/19 01:51 186/103 H 98 Weight Admit Weight 209 lb 14.4 oz Weight 209 lb 14.4 oz I&O: 09/29/19 09/30/19 10/01/19 06:59 06:59 06:59 Intake Total 240 Output Total 275 100 Balance -35 -100 Result Diagrams: 09/30/19 11:01 09/30/19 02:13 Additional Labs: Accuchecks 09/30/19 09/30/19 09/29/19 08:49 06:32 23:50 POC Glucose 157 H 149 H 153 H 09/29/19 09/29/19 19:08 16:46 POC Glucose 179 H 154 H Hospitalist ROS - Review of Systems Constitutional: denies: fever, chills, sweats, weakness, malaise, other Respiratory: denies: cough, dry, shortness of breath, hemoptysis, SOB with excertion, pleuritic pain, sputum, wheezing, other Cardiovascular: denies: chest pain, palpitations, orthopnea, paroxysmal noc. dyspnea, edema, light headedness, other Gastrointestinal: denies: nausea, vomiting, abdominal pain, diarrhea, constipation, melena, hematochezia, other Genitourinary: denies: dysuria, frequency, incontinence, hematuria, retention, other - Medication Medications: Active Medications Generic Name Dose Route Start Last Admin Trade Name Parvizq PRN Reason Stop Dose Admin Amantadine HCl 100 mg 09/29/19 21:00 09/30/19 11:16 Symmetrel PO 100 mg BID MARY Administration Carbidopa/Levodopa 1 tab 09/29/19 17:00 09/30/19 11:15 Sinemet 25-100 PO 1 tab QID MARY Administration Docusate Sodium 100 mg 09/30/19 09:00 09/30/19 11:15 Colace PO 100 mg DAILY MARY Administration Donepezil HCl 10 mg 09/30/19 09:00 09/30/19 11:15 Aricept PO 10 mg DAILY MARY Administration Fluoxetine HCl 10 mg 09/30/19 09:00 09/30/19 11:15 Prozac PO 10 mg DAILY MARY Administration Heparin Sodium (Porcine) 0 units 09/29/19 13:47 09/30/19 02:50 Heparin 1,000 Units/Ml (10 Ml) SLOW IVP 2,766 unit ASDIR MARY Administration Protocol Iron/Minerals/Multivitamins 1 tab 09/30/19 09:00 09/30/19 11:15 Theragran M PO 1 tab DAILY MARY Administration Isosorbide Dinitrate 5 mg 09/29/19 21:00 09/30/19 11:15 Isordil PO 5 mg BID MARY Administration Lisinopril 10 mg 09/30/19 06:00 09/30/19 05:48 Zestril PO 10 mg 0600,1800 MARY Administration Mirabegron 50 mg 09/30/19 09:00 09/30/19 11:15 Myrbetriq Er PO 50 mg DAILY MARY Administration Mirtazapine 30 mg 09/29/19 21:00 09/29/19 21:19 Remeron PO 30 mg HS MARY Administration Mometasone Furoate/Formoterol Fumar 2 puff 09/29/19 18:30 09/30/19 09:52 Dulera 200 Mcg/5 Mcg Inhaler INH Not Given BID-RT MARY Montelukast Sodium 10 mg 09/30/19 09:00 03/31/20 11:15 Singulair PO 10 mg DAILY MARY Administration Nitroglycerin 0.4 mg 09/30/19 01:57 09/30/19 02:17 Nitrostat PO 0.4 mg Q5MIN PRN Administration Chest Pain Pimavanserin 1 each 09/30/19 09:00 09/30/19 11:16 Tartrate [Nuplazid] PO 1 each 10 Mg DAILY MARY Administration Tamsulosin HCl 0.4 mg 09/30/19 09:00 09/30/19 11:15 Flomax PO 0.4 mg DAILY MARY Administration - Exam General Appearance: NAD, awake alert Eye: PERRL Neck: no JVD Heart: RRR, no murmur, no gallops, no rubs Respiratory: CTAB, no wheezes, no rales, no ronchi Gastrointestinal: soft, non-tender, non-distended, normal bowel sounds Extremities: no edema Neurological: cranial nerve grossly intact, no focal deficits Psychiatric: normal affect, normal behavior, oriented to person, oriented to place. negative: oriented to time Hosp A/P (1) NSTEMI (non-ST elevated myocardial infarction) Code(s): I21.4 - NON-ST ELEVATION (NSTEMI) MYOCARDIAL INFARCTION Status: Acute (2) CAD (coronary artery disease) Code(s): I25.10 - ATHSCL HEART DISEASE OF [place] CORONARY ARTERY W/O ANG PCTRS Status: Chronic Qualifiers: (3) CKD (chronic kidney disease) stage 3, GFR 30-59 ml/min Code(s): N18.3 - CHRONIC KIDNEY DISEASE, STAGE 3 (MODERATE) Status: Acute (4) BPH (benign prostatic hyperplasia) Code(s): N40.0 - BENIGN PROSTATIC HYPERPLASIA WITHOUT LOWER URINRY TRACT SYMP Status: Chronic (5) Diabetes type 2, controlled Code(s): E11.9 - TYPE 2 DIABETES MELLITUS WITHOUT COMPLICATIONS Status: Chronic (6) Thrombocytopenia Code(s): D69.6 - THROMBOCYTOPENIA, UNSPECIFIED Status: Acute - Plan #NSTEMI #CABG, CAD S/p multiple stents -per cardiology, type 2 -stop heparin, plavix; continue aspirin,lisinpril, atorvastatin rest of management unchanged
[2019-09-30 14:32] VITALS: BP 121/71
--- NOTE | 2019-09-30 14:48 | PDOC.CPN ---
- Subjective Date: 09/30/19 Time: 08:00 Interval history: The pt seen and examined. No overnight events. No cardiac complaints. - Objective Allergies/Adverse Reactions: Allergies Allergy/AdvReac Type Severity Reaction Status Date / Time codeine Allergy Verified 09/21/19 06:11 diphenhydramine Allergy Verified 09/21/19 06:11 [From Benadryl] hydrocodone [From Ewing] Allergy Verified 09/21/19 06:11 morphine Allergy Verified 09/21/19 06:11 zolpidem [From Ambien] Allergy Verified 09/21/19 06:11 antihistamines Allergy Severe Uncoded 09/21/19 06:11 Visit Medications: Current Medications Acetaminophen (Tylenol) 650 mg PO Q4H PRN PRN Reason: Pain Albuterol/Ipratropium (Duoneb) 3 ml NEB QID-RT [facility] Last Admin: 09/30/19 14:37 Dose: 3 ml Amantadine HCl (Symmetrel) 100 mg PO BID [facility] Last Admin: 09/30/19 11:16 Dose: 100 mg Amlodipine Besylate (Norvasc) 5 mg PO DAILY [facility] Amlodipine Besylate (Norvasc) 2.5 mg PO NOW [facility] Stop: 09/30/19 15:00 Last Admin: 09/30/19 14:31 Dose: 2.5 mg Atorvastatin Calcium (Lipitor) 40 mg PO HS [facility] Carbidopa/Levodopa (Sinemet 25-100) 1 tab PO QID [facility] Last Admin: 09/30/19 14:30 Dose: 1 tab Dextrose/Water (Dextrose 50%) 25 gm SLOW IVP PRN PRN PRN Reason: Hypoglycemia Docusate Sodium (Colace) 100 mg PO DAILY [facility] Last Admin: 09/30/19 11:15 Dose: 100 mg Donepezil HCl (Aricept) 10 mg PO DAILY [facility] Last Admin: 09/30/19 11:15 Dose: 10 mg Fluoxetine HCl (Prozac) 10 mg PO DAILY [facility] Last Admin: 09/30/19 11:15 Dose: 10 mg Glucagon (Glucagon) 1 mg IM PRN PRN PRN Reason: Hypoglycemia Heparin Sodium (Porcine) (Heparin 1,000 Units/Ml (10 Ml)) 0 units SLOW IVP ASDIR [facility]; Protocol Last Admin: 09/30/19 02:50 Dose: 2,766 unit Hydralazine HCl (Apresoline) 25 mg PO TID [facility] Last Admin: 09/30/19 14:31 Dose: 25 mg Dextrose/Water (D5w) 1,000 mls @ 0 mls/hr IV .Q0M PRN PRN Reason: Hypoglycemia Insulin Human Lispro (Humalog) 0 units SC .MILD SLIDING SCALE PRN PRN Reason: Mild Correctional Scale Insulin Human Lispro (Humalog) 0 units SC .BEDTIME SLIDING SC PRN PRN Reason: Bedtime Correctional Scale Iron/Minerals/Multivitamins (Theragran M) 1 tab PO DAILY [facility] Last Admin: 09/30/19 11:15 Dose: 1 tab Isosorbide Dinitrate (Isordil) 10 mg PO BID [facility] Lisinopril (Zestril) 10 mg PO 0600,1800 [facility] Last Admin: 09/30/19 05:48 Dose: 10 mg Mirabegron (Myrbetriq Er) 50 mg PO DAILY [facility] Last Admin: 09/30/19 11:15 Dose: 50 mg Mirtazapine (Remeron) 30 mg PO HS [facility] Last Admin: 09/29/19 21:19 Dose: 30 mg Mometasone Furoate/Formoterol Fumar (Dulera 200 Mcg/5 Mcg Inhaler) 2 puff INH BID-RT [facility] Last Admin: 09/30/19 09:52 Dose: Not Given Montelukast Sodium (Singulair) 10 mg PO DAILY [facility] Last Admin: 09/30/19 11:15 Dose: 10 mg Nitroglycerin (Nitrostat) 0.4 mg PO Q5MIN PRN PRN Reason: Chest Pain Last Admin: 09/30/19 02:17 Dose: 0.4 mg Pimavanserin Tartrate [Nuplazid] 10 Mg 1 each PO DAILY [facility] Last Admin: 09/30/19 11:16 Dose: 1 each Senna/Docusate Sodium (Senokot S) 2 tab PO BIDPRN PRN PRN Reason: Constipation Tamsulosin HCl (Flomax) 0.4 mg PO DAILY [facility] Last Admin: 09/30/19 11:15 Dose: 0.4 mg Vital Signs & Weight: Vital Signs Temp Pulse Pulse Pulse Pulse Resp BP 09/30/19 14:37 79 14 09/30/19 14:31 75 121/71 09/30/19 11:11 97.8 F 75 16 09/30/19 10:15 59 L 76 64 09/30/19 09:05 62 61 09/30/19 07:10 97.9 F 66 17 09/30/19 05:48 180/96 H 09/30/19 04:00 97.5 F L 80 18 BP BP BP BP Pulse Ox 09/30/19 14:37 09/30/19 14:31 09/30/19 11:11 170/84 H 100 09/30/19 10:15 202/99 H 155/94 H 189/105 H 09/30/19 09:05 164/90 H 203/99 H 09/30/19 07:10 180/90 H 98 09/30/19 05:48 09/30/19 04:00 180/96 H 96 Admit Weight 209 lb 14.4 oz Weight 209 lb 14.4 oz - Physical Exam General: other (confused) HEENT: mucus membranes moist Neck: supple neck Cardiac: regular rate and rhythm, S1/S2 Lungs: clear to auscultation, decreased breath sounds Extremities: no edema - Labs Result Diagrams: 09/30/19 11:01 09/30/19 02:13 Troponin/CKMB CK-MB (CK-2) 1.3 ng/mL (0-6.6) 09/30/19 02:13 Troponin I 0.535 ng/mL (< 0.028) H* 09/30/19 04:39 - Telemetry Sinus rhythms and dysrhythmias: sinus rhythm - Assessment/Plan Assessment/Plan: 1. NSTEMI type 2 2/2 possible hip fx and REBECCA - The pt's trop has been stable; 2. CAD with hx of CABG x 4 in 2008, PTCA with stent in OM in 03/2009, PTCA with stent in LAD x3 and OM x3 in 03/2009, PTCA with stent in 10/2009, and LHC in 2016 with patent stents with mod CAD with small vessel disease distally - on Lisinopril, ASA, and Lipitor; not on bblocker due to bradycardia; 3. REBECCA on CKD 4. HTN - increased Norvasc from 2.5mg to 5mg qd; Isosorbide 10mg BID 5. HLD - on Lipitor 6. DM type 2 7. PVD with hx of AFRO in 08/2015 with 100% anterior and posterior tibial with collateral fillings 8. Parkinson's disease MAR reviewed * From Cardiac standpoint, the pt is stable to transfer to group home * The pt will f/u with Dr Bowers
[2019-09-30] MEDS ORDERED: hydrALAZINE 25 MG TAB PO SCH (15:00)
[2019-09-30] MEDS ORDERED: Isosorbide Dinitrate 20 MG TAB PO SCH (21:00)
[2019-09-30] MEDS ORDERED: Atorvastatin Calcium 40 MG TAB PO SCH (21:00)
[2019-10-01] MEDS ORDERED: Amlodipine 5 MG TAB PO SCH (09:00)
== END 2019-09-30 16:09 | DRG 682 ==
LOC: ERS 09:44 → 2SE 13:27
PROVIDERS: ADMIT Internal Medicine; ATTEND Internal Medicine
DX: N17.9 Acute kidney failure, unspecified (principal); I21.A1 Myocardial infarction type 2; S72.92XD Unspecified fracture of left femur, subsequent encounter for closed fracture with routine healing; I25.10 Atherosclerotic heart disease of native coronary artery without angina pectoris; D50.9 Iron deficiency anemia, unspecified; N18.3 Chronic kidney disease, stage 3 (moderate); E11.22 Type 2 diabetes mellitus with diabetic chronic kidney disease; N40.0 Benign prostatic hyperplasia without lower urinary tract symptoms; D69.6 Thrombocytopenia, unspecified; G20 Parkinson's disease; F02.80 Dementia in other diseases classified elsewhere, unspecified severity, without behavioral disturbance, psychotic disturbance, mood disturbance, and anxiety; F32.9 Major depressive disorder, single episode, unspecified; E78.00 Pure hypercholesterolemia, unspecified; E11.51 Type 2 diabetes mellitus with diabetic peripheral angiopathy without gangrene; X58.XXXD Exposure to other specified factors, subsequent encounter; Z95.1 Presence of aortocoronary bypass graft; Z95.5 Presence of coronary angioplasty implant and graft; I25.2 Old myocardial infarction; Z87.11 Personal history of peptic ulcer disease; Z89.421 Acquired absence of other right toe(s); Z88.8 Allergy status to other drugs, medicaments and biological substances; Z79.899 Other long term (current) drug therapy; Z79.82 Long term (current) use of aspirin; Z79.51 Long term (current) use of inhaled steroids
CPT/HCPCS: 36415; 36416; 71045; 82553; 83735; 84132; 85014; 85018; 85049; 85730; 93005; 93010; 93306; 94640; 94760; J1644; J7611; J7620

== ENCOUNTER 2019-12-29 14:41 | Observation (INO) | payer MEDICARE, BC, OTHER ==
--- NOTE | 2019-12-29 15:37 | RAD ---
Chest one view HISTORY: Dyspnea. Altered mental status. COMPARISON: 09/29/2019. FINDINGS: Cardiac silhouette is magnified by projection. Pulmonary vasculature is unremarkable. Mediastinum is midline with postoperative changes and aortic calcification. No lobar consolidation or evidence of pneumothorax. Calcified granulomata are consistent with healed granulomatous disease. Old healed rib fractures are stable. Right shoulder prosthesis partially visualized. IMPRESSION : Atherosclerosis. Chronic-type findings are stable. No active cardiopulmonary abnormalities are demonstrated.
[2019-12-29 15:43] LABS: #Eosinphils 0.1 thou/uL (0.0-0.7); #Lymphocytes 0.7 thou/uL (1.20-3.40); #Monocytes 0.6 thou/uL (0.11-0.59); #Neutrophils 6.8 thou/uL (1.40-6.50); %Basophils 0.4 % (0.0-1.0); %Eosinophils 1.1 % (0.0-10.0); %Neutrophils 83.5 % (42.0-75.0); Hemoglobin 14.7 g/dL (14.0-18.0); Mean Corpuscular HGB CONC 34.6 g/dL (32.0-36.0); Mean Corpuscular Hemoglobin 31.1 pg (27.0-31.0); Mean Corpuscular Volume 89.8 fL (78.0-98.0); Platelet Count 156 thou/uL (130-400); RBC Distribution Width 13.9 % (11.5-14.5); Red Blood Cell (RBC) Count 4.73 mill/uL (4.70-6.10); White Blood Cell (WBC) Count 8.1 thou/uL (4.8-10.8)
--- NOTE | 2019-12-29 15:57 | CT ---
CT HEAD WITHOUT IV CONTRAST COMPARISON: 07/27/2019 HISTORY: Altered mental status. TECHNIQUE: Axial CT imaging at 5 mm intervals from vertex through skull base without contrast FINDINGS: There is decreased attenuation in the periventricular white matter which is nonspecific but likely re flective of chronic small vessel ischemic changes. Area of encephalomalacia in the right temporal lobe is again seen likely due to prior infarction or other insult. There is mild cerebral volume loss. The ventricular system is normal in size, shape, and position for the degree of sulcal atrophy. There is no evidence of an acute infarction, hemorrhage, mass effect, or midline shift. Mucosal thickening is again seen in the left maxillary antrum. Mastoid air cells are clear. Osseous structures appear intact. Prominent vascular calcifications are again seen in the basilar art mario which remains ectatic proximally. IMPRESSION: 1. No acute intracranial abnormality demonstrated. 2. Chronic small vessel ischemic changes and cerebral volume loss.
[2019-12-29 16:05] LABS: ALT (SGPT) 15 U/L (8-55); AST (SGOT) 24 U/L (5-34); Albumin 3.8 g/dL (3.4-4.8); Alkaline Phosphatase 104 U/L (40-110); Anion Gap 13 mmol/L (10-20); BUN (Urea Nitrogen) 31 mg/dL (8.4-25.7); Bilirubin, Total 1.3 mg/dL (0.2-1.2); Calc. Creatinine Clearance 0 mL/min (70-130); Calcium 9.1 mg/dL (7.8-10.44); Carbon Dioxide 21 mmol/L (23-31); Chloride 106 mmol/L (98-107); Estimated GFR-MDRD 34; Globulin 3.3 g/dL (2.4-3.5); Glucose 155 mg/dL (83-110); Lipase 6 U/L (8-78); Potassium 3.9 mmol/L (3.5-5.1); Protein, Total 7.1 g/dL (5.8-8.1); Sodium 136 mmol/L (136-145)
[2019-12-29] MEDS ORDERED: cefTRIAXone\\ROCEPHIN 1 GM VIAL ONE (16:28)
[2019-12-29 16:43] LABS: Bilirubin Negative (Negative); Blood, Urine Negative (Negative); Clarity Clear (Clear); Glucose, Urine (Dipstick) Normal (Negative); Ketone, Urine Negative (Negative); Leukocyte Negative Leu/uL (Negative); Nitrite Negative (Negative); Protein, Urine (Dipstick) 10 mg/dL (Neg-Trace); Specific Gravity, Urine 1.022 (1.002-1.036); Urobilinogen Normal mg/dL (Less than 2)
[2019-12-29 16:54] LABS: Lactic Acid 1.2 mmol/L (0.5-2.2)
[2019-12-29 17:22] LABS: CKMB 2.6 ng/mL (0-6.6)
[2019-12-29 18:02] LABS: Phosphorus 3.7 mg/dL (2.3-4.7)
[2019-12-29 20:21] LABS: Troponin I 0.037 ng/mL (< 0.028)
[2019-12-29 23:15] LABS: Troponin I 0.046 ng/mL (< 0.028)
[2019-12-29] MEDS ORDERED: Acetaminophen 650 MG Suppository PR PRN (23:17)
[2019-12-29] MEDS ORDERED: Acetaminophen 325 MG TAB PO PRN (23:17)
[2019-12-29] MEDS ORDERED: Sodium Chloride 0.9% 1,000 ML IV SCH (23:30)
--- NOTE | 2019-12-29 23:46 | PDOC.HHP ---
Hospitalist HPI - History of Present Illness AMS History of Present Illness: Patient reportedly with increased confusion since yesterday. He had COVID testing on Sunday which was negative but was diagnosed with a UTI and started on antibiotics (Cipro) but has refused medications since yesterday. He apparently had a temp of 99.2 today on arrival to ED. According to EMS who obtained info from his , the patient is typically AO x 4 at baseline and has been AO x 2 since yesterday. He has a known history of Parkinson's disease. Per ED notes patient has been refusing to eat or drink as well. He is being admitted for further evaluation of mental status changes. ED Course: GCS [address] head done showed no acute intracranial abnormality. He was noted to have chronic small vessel ischemic changes and cerebral volume loss. UA repeated and unremarkable. Multiple labs obtained showed an Indeterminate trop of 0.035. CKMB 2.6. Lactic acid 1.2. BUN 31, Creat 1.95, GFR 34 Glucose 155. LFTs notable for t bili 1.3. Normal ammonia level. WCC 8.1, Hgb 14.7, Platelets 156. Neutrophils 83.5 %. Chest xray obtained showed atherosclerosis and chronic type findings. No acute changes. In the ED he had an EKG showing NSR with a HR of 81. QTc 494. No ST changes or T wave abnormalities. Given 1 L NS and started on Rocephin for UTI. Hospitalist ROS - Review of Systems ROS unobtainable: due to mental status - Medication Medications: ALLERGIES: Antihistamines (Unconfirmed), codeine (Unconfirmed), diphenhydramine (Unconfirmed), HYDROcodone bitartrate (bulk) (Unconfirmed), hydrocodone ( Unconfirmed), morphine (Unconfirmed), zolpidem (Unconfirmed) HOME MEDICATIONS: donepezil SunDec 29, 2019 15:07 FELTON Dye Tammy TABLET : Strength - 10 mg : ORAL Patient Dose: 1 tab(s) once a day. pravastatin SunDec 29, 2019 15:07 FELTON Dye Tammy TABLET : Strength - 40 mg : ORAL Patient Dose: 1 tab(s) Oral once a day. tamsulosin SunDec 29, 2019 15:07 Hardik, RN, Kira CAPSULE, EXT RELEASE 24 HR : Strength - 0.4 mg : ORAL Patient Dose: 1 tab(s) once a day. FLUoxetine SunDec 29, 2019 15:07 FELTON Dye Tammy CAPSULE : Strength - 10 mg : ORAL Patient Dose: 1 cap(s) once a day. Aspirin Childrens SunDec 29, 2019 15:07 FELTON Dye Tammy TABLET, CHEWABLE : Strength - 81 mg : ORAL Patient Dose: 81 mg Oral once a day (in the morning). montelukast SunDec 29, 2019 15:07 FELTON Dye Tammy tablet : Strength - 10 mg : ORAL Patient Dose: Unknown. albuterol sulfate inhalation SunDec 29, 2019 15:12 FELTON Dye Tammy HFA aerosol inhaler : Strength - 90 mcg : INHALATION Patient Dose: 2 puff(s) Inhaler every 4 hours prn. Nuplazid SunDec 29, 2019 15:12 FELTON Dye Tammy tablet : Strength - 10 mg : ORAL Patient Dose: 10 mg Oral 2 times a day (before meals). rOPINIRole SunDec 29, 2019 15:13 FELTON Dye Tammy tablet : Strength - 2 mg : ORAL Patient Dose: 2 mg Oral once a day. Rytary SunDec 29, 2019 15:14 FELTON Dye Tammy capsule, extended release : Strength - 48.75 mg-195 mg : ORAL Patient Dose: 48.75/19 mg Oral 4 times a day. Hospitalist History - Past Medical History Source: other (ED records) Cardiac: reports: CAD, HTN, Hyperlipidemia Pulmonary: reports: Other (sleep apnea) STRETCHER AND DRIER: reports: Other (Parkinson's disease, sees neurologist in [place]) Endocrine: reports: Diabetes - Past Surgical History Past Surgical History: reports: CABG, Other (heart stents x 7 left hip fracture repair a few weeks ago right 5th toe amputation right shoulder surgery right ankle surgery) - Family History Family History: reports: no pertinent history - Social History Alcohol: reports: None Drugs: reports: none Living Situation: With Family - Exam General Appearance: awake alert General - other findings: Responsive to voice, resting tremors Eye: PERRL ENT: dry oral mucosa Neck: supple, no lymphadenopathy Heart: RRR, normal peripheral pulses Respiratory: CTAB, no rales, no ronchi, normal chest expansion, no tachypnea Gastrointestinal: soft, no guarding, no rigidity Extremities: no edema Skin: tenting Neurological - other findings: AO x 1, able to follow some commands, LUE weakness unclear if at baseline Musculoskeletal: normal tone Musculoskeletal - other findings: Difficulty assessing Psychiatric: oriented to person, flat affect Psychiatric - other findings: unable to answer questions, follows minimal commands Hospitalist Results - Labs Result Diagrams: 12/29/19 15:16 12/29/19 15:16 Lab results: WBC 8.1 thou/uL (4.8-10.8) 12/29/19 15:16 Hgb 14.7 g/dL (14.0-18.0) 12/29/19 15:16 Hct 42.4 % (42.0-52.0) 12/29/19 15:16 MCV 89.8 fL (78.0-98.0) 12/29/19 15:16 Plt Count 156 thou/uL (130-400) 12/29/19 15:16 Neutrophils % 83.5 % (42.0-75.0) H 12/29/19 15:16 Sodium 136 mmol/L (136-145) 12/29/19 15:16 Potassium 3.9 mmol/L (3.5-5.1) 12/29/19 15:16 Chloride 106 mmol/L (98-107) 12/29/19 15:16 Carbon Dioxide 21 mmol/L (23-31) L 12/29/19 15:16 BUN 31 mg/dL (8.4-25.7) H 12/29/19 15:16 Creatinine 1.95 mg/dL (0.7-1.3) H 12/29/19 15:16 Glucose 155 mg/dL (83-110) H 12/29/19 15:16 Lactic Acid 1.2 mmol/L (0.5-2.2) 12/29/19 16:27 Calcium 9.1 mg/dL (7.8-10.44) 12/29/19 15:16 Total Bilirubin 1.3 mg/dL (0.2-1.2) H 12/29/19 15:16 AST 24 U/L (5-34) 12/29/19 15:16 ALT 15 U/L (8-55) 12/29/19 15:16 Alkaline Phosphatase 104 U/L (40-110) 12/29/19 15:16 Ammonia 19 umol/L (18-72) 12/29/19 17:33 CK-MB (CK-2) 2.6 ng/mL (0-6.6) 12/29/19 16:27 Troponin I 0.046 ng/mL (< 0.028) H 12/29/19 22:43 Serum Total Protein 7.1 g/dL (5.8-8.1) 12/29/19 15:16 Albumin 3.8 g/dL (3.4-4.8) 12/29/19 15:16 Lipase 6 U/L (8-78) L 12/29/19 15:16 Urine Ketones Negative mg/dL (Negative) 12/29/19 16:25 Urine Blood Negative (Negative) 12/29/19 16:25 Urine Nitrite Negative (Negative) 12/29/19 16:25 Ur Leukocyte Esterase Negative Ck/uL (Negative) 12/29/19 16:25 - Radiology Interpretation CT scan - head Status: report reviewed by wi Hospitalist H&P A/P - Problem (1) AMS (altered mental status) Code(s): R41.82 - ALTERED MENTAL STATUS, UNSPECIFIED Status: Acute (2) Recent urinary tract infection Code(s): Z87.440 - PERSONAL HISTORY OF URINARY (TRACT) INFECTIONS Status: Acute (3) [id number] kidney injury Code(s): N17.9 - ACUTE KIDNEY FAILURE, UNSPECIFIED; N18.9 - CHRONIC KIDNEY DISEASE, UNSPECIFIED Status: Acute (4) Diabetes type 2, controlled Code(s): E11.9 - TYPE 2 DIABETES MELLITUS WITHOUT COMPLICATIONS Status: Chronic (5) Dyslipidemia Code(s): E78.5 - HYPERLIPIDEMIA, UNSPECIFIED Status: Chronic (6) Hypertension Code(s): I10 - ESSENTIAL (PRIMARY) HYPERTENSION Status: Chronic Qualifiers: Hypertension type: essential hypertension Qualified Code(s): I10 - Essential (primary) hypertension (7) CHICO (obstructive sleep apnea) Code(s): G47.33 - OBSTRUCTIVE SLEEP APNEA (ADULT) (PEDIATRIC) Status: Chronic (8) Parkinson disease Code(s): G20 - PARKINSON'S DISEASE Status: Chronic (9) CAD (coronary artery disease) Code(s): I25.10 - ATHSCL HEART DISEASE OF [place] CORONARY ARTERY W/O ANG PCTRS Status: Chronic Qualifiers: - Plan Plan: Continue to trend troponins. Cardiac monitoring. Patient with parkinson's disease. Tremors. Difficulty assessing for extremity weakness. Unclear if at baseline. Neuro consulted ordered. NPO. Speech consult obtained for ?risk of aspiration. CXR clear. Further imaging i.e. MRI brain as per Neuro assessment. Continue Rocephin. Obtain bladder scan to ensure not retaining urine. Repeat LFTs in the AM. Monitor BP. Reconcile home medications once verified. Monitor glucose. ISS initiated. DVT prophylaxis with mechanical SCDs. CODE STATUS: unknown. Surrogate decision maker is reportedly his Leslie Bright.
[2019-12-30] MEDS ORDERED: Dextrose 50% Abboject 50 ML SYRINGE SLOW IVP PRN (00:35)
[2019-12-30] MEDS ORDERED: Dextrose 5% in Water 1,000 ML IV PRN (00:35)
[2019-12-30] MEDS ORDERED: HumaLOG 300 UNITS/3 ML VIAL SC PRN ×2 (00:35)
[2019-12-30] MEDS ORDERED: Dextrose 5 %-0.45 % NaCl 1,000 ML IV SCH (00:45)
[2019-12-30 02:10] LABS: Amphetamine Not Detected (NotDetected); Barbiturates Screen Not Detected (NotDetected); Benzodiazepine Screen Not Detected (NotDetected); Cocaine Metabolite Screen Not Detected (NotDetected); Medtox Control Line Valid? VALID (VALID); Medtox Reader # READER 4; Methadone Not Detected (NotDetected); Methamphetamine Not Detected (NotDetected); Opiate Screen Not Detected (NotDetected); Oxycodone Screen Not Detected (NotDetected); Phencyclidine (PCP) Not Detected (NotDetected); THC/Cannabinoid Screen Not Detected (NotDetected); Tricyclic Screen Not Detected (NotDetected)
[2019-12-30 02:55] LABS: CKMB 2.2 ng/mL (0-6.6)
[2019-12-30 06:12] LABS: #Eosinphils 0.2 thou/uL (0.0-0.7); #Lymphocytes 0.8 thou/uL (1.20-3.40); #Monocytes 0.7 thou/uL (0.11-0.59); #Neutrophils 3.1 thou/uL (1.40-6.50); %Basophils 0.5 % (0.0-1.0); %Eosinophils 3.7 % (0.0-10.0); %Lymphocytes 17.7 % (21.0-51.0); %Monocytes 13.7 % (0.0-10.0); %Neutrophils 64.5 % (42.0-75.0); Hemoglobin 14.2 g/dL (14.0-18.0); Mean Corpuscular HGB CONC 32.8 g/dL (32.0-36.0); Mean Corpuscular Hemoglobin 29.6 pg (27.0-31.0); Mean Corpuscular Volume 90.4 fL (78.0-98.0); Mean Platelet Volume 9.2 fL (7.4-10.4); Platelet Count 144 thou/uL (130-400); White Blood Cell (WBC) Count 4.7 thou/uL (4.8-10.8)
[2019-12-30 06:30] LABS: ALT (SGPT) 16 U/L (8-55); AST (SGOT) 22 U/L (5-34); Albumin 3.8 g/dL (3.4-4.8); Alkaline Phosphatase 97 U/L (40-110); Anion Gap 13 mmol/L (10-20); BUN (Urea Nitrogen) 30 mg/dL (8.4-25.7); Bilirubin, Total 0.9 mg/dL (0.2-1.2); Calc. Creatinine Clearance 0 mL/min (70-130); Calcium 9.2 mg/dL (7.8-10.44); Carbon Dioxide 21 mmol/L (23-31); Chloride 109 mmol/L (98-107); Estimated GFR-MDRD 41; Globulin 3.3 g/dL (2.4-3.5); Glucose 140 mg/dL (83-110); Potassium 4.1 mmol/L (3.5-5.1); Protein, Total 7.1 g/dL (5.8-8.1); Sodium 139 mmol/L (136-145)
[2019-12-30] MEDS ORDERED: cefTRIAXone\\ROCEPHIN 1 GM in Sodium Chloride 0.9% 100 ML IVPB SCH (15:00)
[2019-12-31 12:46] LABS: SARS-CoV-2 MS2 Positive; SARS-CoV-2 N Gene Positive; SARS-CoV-2 S Gene Positive; SARS-CoV-2 orf1ab Negative
== END 2019-12-30 10:14 | disposition short-term general hospital (02) ==
LOC: ERS 14:41 → ERHOLD 18:03
PROVIDERS: ADMIT Family Medicine; ATTEND Family Medicine
DX: R41.82 Altered mental status, unspecified (principal); I12.9 Hypertensive chronic kidney disease with stage 1 through stage 4 chronic kidney disease, or unspecified chronic kidney disease; E11.22 Type 2 diabetes mellitus with diabetic chronic kidney disease; N18.9 Chronic kidney disease, unspecified; N17.9 Acute kidney failure, unspecified; G47.33 Obstructive sleep apnea (adult) (pediatric); I25.10 Atherosclerotic heart disease of native coronary artery without angina pectoris; E78.5 Hyperlipidemia, unspecified; G20 Parkinson's disease; Z79.82 Long term (current) use of aspirin; Z79.899 Other long term (current) drug therapy; Z20.828 Contact with and (suspected) exposure to other viral communicable diseases; Z88.5 Allergy status to narcotic agent; Z88.8 Allergy status to other drugs, medicaments and biological substances; Z95.1 Presence of aortocoronary bypass graft; Z95.5 Presence of coronary angioplasty implant and graft
CPT/HCPCS: 51701; 70450; 71045; 80053; 80306; 81003; 82140; 82553 ×2; 82962; 83605; 83690; 83735; 84100; 84484 ×3; 85025; 87040; 87086; 87149 ×2; 93005; 96361; 96365; 99285; U0003; 36415; 36416; 84443; 87635; J0696

== ENCOUNTER 2020-04-23 07:21 | Outpatient (CLI) | payer MEDICARE, BC ==
--- NOTE | 2020-04-23 09:39 | MRI ---
MRI BRAIN WITHOUT CONTRAST: INDICATION: Ataxia. Parkinson's. COMPARISON: Comparison is made to the recent MRI of brain dated 01/04/2020. FINDINGS: Mild cortical volume loss. Ventricles have normal size and position. There is no evidence of restricted diffusion on today's exam. Moderate chronic ischemic white matter changes again seen and appear stable. There is mild volume loss and gliosis involving the right tem poral lobe which is stable consistent with old infarct. 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 The intracranial internal carotid arteries, basilar artery, and proximal cerebral arteries demonstrat e flow voids. Mucosal edema in the left maxillary sinus is again seen and is unchanged in appearance. IMPRESSION: Chronic ischemic changes as described above appear stable from 01/04/2020. No evidence of acute proces s or significant interval change. POS: OFF
== END 2020-04-23 07:22 | disposition home or self-care (01) ==
LOC: BICMRI 07:21
PROVIDERS: ATTEND Psychiatry & Neurology Neurology
DX: R27.0 Ataxia, unspecified (principal); I67.82 Cerebral ischemia
CPT/HCPCS: 70551